=== PATIENT | male | born 1955 | race Caucasian/White ===

== ENCOUNTER 2019-03-20 09:27 | Outpatient (CLI) | payer MEDICARE, BC, SELFPAY ==
[2019-03-20 10:01] LABS: ALT 37 U/L (16-63); AST 17 U/L (15-37); Albumin 3.8 g/dL (3.4-5.0); Alkaline Phosphatase 106 U/L (46-116); Anion Gap 9.7 mmol/L (3-11); BUN 26 mg/dL (7-18); Bilirubin, Total 0.9 mg/dL (0.2-1.0); CO2 24.3 mmol/L (21.0-32.0); CREATININE 1.32 mg/dL (0.70-1.30); Chloride 107 mmol/L (98-107); Estimated GFR 54.43 (mL/min/1.73m2); Glucose 108 mg/dL (70-100); Potassium 3.8 mmol/L (3.5-5.1); Sodium 141 mmol/L (136-145); Total Protein 7.6 g/dL (6.4-8.2)
== END 2019-03-20 09:47 ==
PROVIDERS: PCP Internal Medicine Cardiovascular Disease; Visit Provider Internal Medicine Cardiovascular Disease
DX: I48.0 Paroxysmal atrial fibrillation (principal)
CPT/HCPCS: 36415; 80053

== ENCOUNTER 2019-06-05 09:24 | Outpatient (CLI) | payer MEDICARE, BC, SELFPAY ==
--- NOTE | 2019-06-05 09:31 | DI.RAD_ITS ---
EXAM: XR KNEE LT 2V AP,LAT INDICATION: L knee pain. COMPARISON: No exams were available for comparison TECHNIQUE: 2D digital imaging was performed. FINDINGS: There is minimal spurring at the posterior patella. The joint spaces are otherwise well maintained. The bones appear intact and normally mineralized. There may be a small joint effusion. IMPRESSION: Minimal degenerative changes of the left knee.
== END 2019-06-05 09:44 ==
PROVIDERS: PCP Internal Medicine Cardiovascular Disease; Referring Provider Internal Medicine Cardiovascular Disease; Visit Provider Orthopaedic Surgery
DX: M25.562 Pain in left knee (principal); M17.12 Unilateral primary osteoarthritis, left knee; M25.462 Effusion, left knee; M23.92 Unspecified internal derangement of left knee
CPT/HCPCS: 20610; 99214; 73560; J1040

== ENCOUNTER 2019-11-14 09:52 | Outpatient (CLI) | payer MEDICARE, BC, SELFPAY ==
--- NOTE | 2019-11-14 11:30 | DI.US_ITS ---
EXAM: US SOFT TISSUE HEAD OR NECK CLINICAL HISTORY: H/O LIPOMATOSIS,E88.2,NECK IN C7 AREA,INCREASE IN SIZE,DISCOLORED,TENDER. TECHNIQUE: Ultrasound was performed using standard protocol. COMPARISON: No exams were available for comparison FINDINGS: Sonographic assessment utilizing grayscale and color Doppler imaging was performed and targeted to th e area of clinical concern. There is a 2.7 x 1.4 x 2.1 cm well-circumscribed, lobulated subcutaneous mass corresponding to the pa lpable abnormality. While largely hypoechoic, there is an eccentric area of increased echogenicity. Internal blood flow is noted. IMPRESSION: Nonspecific 2.7 x 1.4 x 2.1 cm subcutaneous mass corresponding to the palpable abnormality. A CT sca n of the neck with contrast should be considered for further evaluation. DATA REPOSITORY:
== END 2019-11-14 10:12 ==
PROVIDERS: PCP Internal Medicine Cardiovascular Disease; Visit Provider Family Medicine
DX: R22.1 Localized swelling, mass and lump, neck (principal); E88.2 Lipomatosis, not elsewhere classified; D17.0 Benign lipomatous neoplasm of skin and subcutaneous tissue of head, face and neck
CPT/HCPCS: 76536

== ENCOUNTER 2019-11-22 02:24 | Outpatient (CLI) | payer MEDICARE, BC, SELFPAY ==
[2019-11-22 14:15] LABS: ALT 34 U/L (16-63); AST 15 U/L (15-37); Albumin 3.7 g/dL (3.4-5.0); Alkaline Phosphatase 115 U/L (46-116); Anion Gap 5.4 mmol/L (3-11); BUN 25 mg/dL (7-18); Bilirubin, Total 0.9 mg/dL (0.2-1.0); CO2 30.6 mmol/L (21.0-32.0); CREATININE 1.47 mg/dL (0.70-1.30); Calcium 9.1 mg/dL (8.5-10.1); Chloride 103 mmol/L (98-107); Estimated GFR 47.93 (mL/min/1.73m2); Glucose 85 mg/dL (74-106); Potassium 3.5 mmol/L (3.5-5.1); Sodium 139 mmol/L (136-145); Total Protein 7.7 g/dL (6.4-8.2)
[2019-11-22] MEDS: Normal Saline - Diluent 50 ML VIAL IV (14:28)
--- NOTE | 2019-11-22 15:00 | DI.CT_ITS ---
EXAM: CT NECK CHEST W CLINICAL HISTORY: LIPOMATOSIS, E88.2,H/O LUMP ON BACK OF NECK WITH DISCOLORATION AND PAIN TECHNIQUE: Images or for performed from above the frontal sinuses through the mid portion of the kid neys after IV contrast. 100 cc of Omnipaque 350 was administered IV. COMPARISON: No exams were available for comparison FINDINGS: Neck CT: A marker was placed over the area of palpable abnormality. Beneath the area marked, there i s a low density collection with surrounding enhancement and edema. The findings are suspicious for a n abscess. It measures 2.8 by 2.3 by 3.5 cm. An incidental sebaceous cyst is seen in the posterior subcutaneous fat at the level of the right scapula. The visualized portions of the brain are grossly normal. The orbits are unremarkable as visualized. The parotid, submandibular and thyroid glands appear normal. The sinuses and mastoid air cells appe ar clear. Degenerative changes are seen in the cervical spine. There is no adenopathy. Chest CT: The heart size is normal. The aorta is normal in diameter shows mild calcification. There are mild coronary artery calcifications. No adenopathy is seen. The lungs show some respiratory mo tion. No infiltrates, effusions or masses are identified. Degenerative changes are seen at the righ t shoulder. Degenerative changes are also noted in the thoracic spine. The liver shows fatty infiltration. Patient is status post cholecystectomy. The spleen, pancreas an d adrenals are unremarkable. There are bilateral renal cysts. IMPRESSION: 3.5 centimeter abscess in the posterior subcutaneous fat of the neck. The chest CT is unremarkable.
== END 2019-11-22 02:44 ==
PROVIDERS: PCP Internal Medicine Cardiovascular Disease; Visit Provider Nurse Practitioner Family
DX: E88.2 Lipomatosis, not elsewhere classified (principal); R22.1 Localized swelling, mass and lump, neck; L02.11 Cutaneous abscess of neck; Z79.899 Other long term (current) drug therapy; K76.0 Fatty (change of) liver, not elsewhere classified; N28.1 Cyst of kidney, acquired
CPT/HCPCS: 70491; 80053; 71260

== ENCOUNTER 2019-11-25 16:35 | Emergency (ER) | payer MEDICARE, BC, SELFPAY ==
--- NOTE | 2019-11-25 16:39 | ED.GENADUL_ITS ---
Discharge Plan Disposition Patient Disposition: HOME Condition: Fair Discharge Details Chief Complaint: RashLesion Clinical Impression: Abscess of neck Primary Care Provider: Zenaida May ED Provider: Pricila Martinez Home Meds and New Rx's Prescriptions: Continued Eliquis 5 mg tablet 5 mg PO BID RF: 0 allopurinol 100 mg tablet 100 mg PO DAILY RF: 0 potassium chloride 10 mEq capsule, extended release 20 meq PO QAM RF: 0 metoprolol succinate 50 mg tablet extended release 24 hr 50 mg PO BID RF: 0 pantoprazole [Protonix] 20 MG tablet,delayed release (DR/EC) 20 mg PO DAILY RF: 0 atorvastatin 20 MG tablet 20 mg PO DAILY RF: 0 potassium chloride 20 MEQ tablet,ER particles/crystals 40 meq PO BID RF: 0 amlodipine 10 MG tablet 5 mg PO DAILY RF: 0 potassium citrate 10 MEQ tablet extended release 10 meq PO BID RF: 0 hydrochlorothiazide 12.5 MG capsule 12.5 mg PO DAILY RF: 0 irbesartan 300 MG tablet 300 mg PO DAILY RF: 0 Discharge Instructions Instructions: Abscess (ED) Additional Instructions: Culture Eliquis for tonight and tomorrow morning. You do not need any other antibiotics this evening, please take your antibiotics as previously prescribed in the morning. You have an appointment with general surgery, Dr. Montes De Oca, tomorrow morning at 9 AM. Do not eat anything after midnight tonight. If you develop new or worsening symptoms and seek care urgently once again. Referrals: Corin Montes De Oca MD [ [facility] STAFF PHYSICIAN] - Zenaida May [Primary Care Provider] - Medical Decision Making <YOU Schwartz - Last Filed: 11/25/19 18:37> Patient is a pleasant 64-year-old gentleman presents today for evaluation of abscess on his neck. He has been following this by his primary care. Patient underwent CT and ultrasound imaging on 11/22/19 and 11/14/19 respectively. These images showed findings suggestive of abscess on the posterior aspect of his neck. Patient reports that for many years he has had what was thought to be a lipoma in this area. However, proximally 1 week ago this began to swell and become tender. He denies any fevers or chills. States this was last evaluated on the . He states that since that time, the pain has increased some and he feels it has been enlarging. He does report that he has had some amount of purulent drainage that began yesterday. Has not had any pain with movement of the neck. Denies any numbness or tingling. Has not noted any weakness. Primary care began patient on Keflex, reports taking his first dose yesterday. On exam, patient has a notable area of swelling with firm defined borders concerning for abscess. The central area is fluctuant. He does have a scabbed over area on the inferior border of this. No active drainage is noted. Unable to express any drainage. Patient has full range of motion of his neck. See no evidence of neurologic compromise associated with this. I reviewed the Notes from the patient's ultrasound and CT scan. Below are the readings from previous imaging: Ultrasound: FINDINGS: Sonographic assessment utilizing grayscale and color Doppler imaging was performed and targeted to the area of clinical concern. There is a 2.7 x 1.4 x 2.1 cm well-circumscribed, lobulated subcutaneous mass corresponding to the palpable abnormality. While largely hypoechoic, there is an eccentric area of increased echogenicity. Internal blood flow is noted. IMPRESSION: Nonspecific 2.7 x 1.4 x 2.1 cm subcutaneous mass corresponding to the palpable abnormality. A CT scan of the neck with contrast should be considered for further evaluation. FINDINGS: Neck CT: A marker was placed over the area of palpable abnormality. Beneath the area marked, there is a low density collection with surrounding enhancement and edema. The findings are suspicious for an abscess. It measures 2.8 by 2.3 by 3.5 cm. An incidental sebaceous cyst is seen in the posterior subcutaneous fat at the level of the right scapula. The visualized portions of the brain are grossly normal. The orbits are unremarkable as visualized. The parotid, submandibular and thyroid glands appear normal. The sinuses and mastoid air cells appear clear. Degenerative changes are seen in the cervical spine. There is no adenopathy. Chest CT: The heart size is normal. The aorta is normal in diameter shows mild calcification. There are mild coronary artery calcifications. No adenopathy is seen. The lungs show some respiratory motion. No infiltrates, effusions or masses are identified. Degenerative changes are seen at the right shoulder. Degenerative changes are also noted in the thoracic spine. The liver shows fatty infiltration. Patient is status post cholecystectomy. The spleen, pancreas and adrenals are unremarkable. There are bilateral renal cysts. IMPRESSION: 3.5 centimeter abscess in the posterior subcutaneous fat of the neck. The chest CT is unremarkable. I am concerned the patient is on Eliquis and has what is concerning for internal blood flow noted on the ultrasound. Will consult with general surgery. Consulted with Dr. Montes De Oca. She reviewed the imaging. We did discuss treatment options. She advised that we could drain here versus having the patient remain n.p.o. and following up with her in the office tomorrow. She did advise that if we chose to do the latter, we give the patient a gram of Rocephin here, have him hold his Eliquis and remain n.p.o. after midnight. I discussed options with the patient. I am concerned that with the area of bleeding patient may be high risk and feel that the outpatient option is more appropriate. The patient agrees with this assessment. He was given 1 g of Rocephin. We did discuss adding Bactrim to the current regimen but based on lab results, I am hesitant to do this based on the patient's kidney function. Rather, I will have him discuss further antibiotic therapy with surgeon tomorrow. He has an appointment at 9 AM. He was given return precautions. All of his questions and concerns were addressed and he is in agreement with this plan. <Hodan Kinney MD - Last Filed: 11/25/19 19:42> I have seen and examined the patient and agree with the exam and history as documented by the PA except as otherwise noted. Review of systems as per the PA. Julio Mays is a 64-year-old man with history of hypertension, atrial fibrillation on apixaban, hyperlipidemia presenting to emergency department with neck abscess imaged on CT 3 days ago, sent by his PCP for further evaluation. Patient is taking Keflex at home prescribed by his PCP. Exam is consistent with abscess, small amount of drainage present. No surrounding erythema. Full painless range of motion of the neck. PA discussed patient presentation and results with Dr. Montes De Oca of surgery, with plan for her to see patient as outpatient at 9 AM tomorrow as an outpatient, at that time patient may be converted to day surgery versus and incision and drainage in office. Plan for IV ceftriaxone. Exam/history is not consistent with extension into bone/spinal canal, meningitis, sepsis, impending airway compromise. I had a lengthy discussion with Patient regarding return to emergency department precautions, home care, and importance of outpatient follow-up. Pt verbalizes understanding of the plan and is amenable. Patient discharged to home with clear plan for outpatient follow-up. All questions were answered. Disposition decision was made weighing the risks and benefits of hospitalization versus outpatient treatment, the risk for further decompensation, and the patient's wishes. HPI <YOU Schwartz - Last Filed: 11/25/19 18:37> General Date/Time Provider Initiated Documentation: 11/25/19 16:39 . History of Present Illness 64 year old M presents to the emergency department with the chief complaint of abscess on back of neck, described as mild, Quality is described as aching, and is localized to the neck. Patient reports no radiation. Patient started experiencing this day(s) and it has been constant. No relieving factors improve symptom(s), No exacerbating factors reported . Patient notes denies cough, diaphoresis, fever/chills, na usea/vomiting, shortness of breath and weakness. Patient did receive the following treatments prior to arrival, other (started on keflex) Related Data Home Medications Medication Instructions Recorded Confirmed amlodipine 5 mg PO DAILY 06/19/16 06/05/19 atorvastatin 20 mg PO DAILY 06/19/16 06/05/19 hydrochlorothiazide 12.5 mg PO DAILY 06/19/16 06/05/19 irbesartan 300 mg PO DAILY 06/19/16 06/05/19 potassium chloride 40 meq PO BID 06/19/16 06/05/19 potassium citrate 10 meq PO BID 06/19/16 06/05/19 pantoprazole [Protonix] 20 mg PO DAILY 02/25/17 06/05/19 allopurinol 100 mg tablet 100 mg PO DAILY 06/05/19 06/05/19 apixaban 5 mg tablet 5 mg PO BID 06/05/19 06/05/19 metoprolol succinate 50 mg 50 mg PO BID 06/05/19 06/05/19 tablet,extended release 24 hr potassium chloride 10 mEq 20 meq PO QAM cap 06/05/19 06/05/19 capsule,extended release Allergies Allergy/AdvReac Type Severity Reaction Status Date / Time adhesive Allergy Unverified 11/25/19 16:44 latex Allergy Unverified 11/25/19 16:44 Review of Systems <YOU Schwartz - Last Filed: 11/25/19 18:37> Constitutional Constitutional: Reports as per HPI, Denies chills and Denies fever(s) Musculoskeletal Musculoskeletal: Reports as per HPI Integumentary/Breasts Skin/Breast: Reports as per HPI Neurologic Neurologic: Reports as per HPI, Denies localized weakness, Denies sensory deficit and Denies paresthesias PFSH <YOU Schwartz - Last Filed: 11/25/19 18:37> Social History Current gender identity: male Do you feel safe at home: Yes Do you feel safe in your relationship?: Yes Exam <YOU Schwartz Last Filed: 11/25/19 18:37> Const General: cooperative, healthy appearing, comfortable, no acute distress and well developed Nutritional Appearance: well nourished and overweight Orientation: alert and awake HENMT Head: normal to inspection Ears: hearing grossly normal bilaterally Neck Neck: full ROM, no lymphadenopathy and no meningeal signs Resp Effort & Inspection: normal respiratory effort, able to speak in complete sentences and no respiratory distress Cardio Rate: regular rate Rhythm: regular rhythm Skin General skin exam: erythema (abscess as above) Neuro General: patient alert and patient awake Cognition: normal cognition Speech: speech normal Gait: normal gait Sensory Exam: no sensory deficits noted Extrem General: normal to inspection and capillary refill normal Right upper extremity: normal to inspection Left upper extremity: normal to inspection Psych Appearance: grossly normal and well kempt Mental Status: mental status grossly normal Speech and Movement: speech and movement normal
[2019-11-25 16:40] VITALS: BP 163/77; PULSE 57; TEMP 36.5; O2SAT 98
[2019-11-25] MEDS: Normal Saline Flush 10 ML SYR IVP (17:36)
[2019-11-25] MEDS: cefTRIAXone 1 GM/50 ML BAG IVPB (17:39)
[2019-11-25 18:11] VITALS: BP 141/69; PULSE 53; RESP 20; TEMP 36.7; O2SAT 98
[2019-11-25 18:24] VITALS: BP 141/69; PULSE 53; RESP 20; TEMP 36.7; O2SAT 98
== END 2019-11-25 18:20 | disposition home or self-care (01) ==
PROVIDERS: Emergency Provider Physician Assistant; PCP Internal Medicine Cardiovascular Disease
DX: L02.11 Cutaneous abscess of neck (principal); Z79.01 Long term (current) use of anticoagulants; I48.91 Unspecified atrial fibrillation
CPT/HCPCS: 96365; 99284; J0696

== ENCOUNTER → 2019-11-26 09:01 | Outpatient (BNVA) | payer MEDICARE, BC, SELFPAY | PROVIDERS: PCP Family Medicine; Visit Provider Surgery | DX: L02.11 Cutaneous abscess of neck (principal); Z79.01 Long term (current) use of anticoagulants | CPT/HCPCS: 10060; 99201; 99212 ==

== ENCOUNTER 2019-11-26 10:12 | Outpatient (REF) | payer MEDICARE, BC, SELFPAY | END 2019-11-26 10:32 | LOC: LBN 10:12 | PROVIDERS: PCP Family Medicine; Visit Provider Family Medicine | DX: L02.11 Cutaneous abscess of neck (principal) | CPT/HCPCS: 87070; 87205 ==

== ENCOUNTER → 2019-11-27 11:27 | Outpatient (BNVA) | payer MEDICARE, BC, SELFPAY | PROVIDERS: PCP Family Medicine; Referring Provider Family Medicine; Visit Provider Surgery | DX: L02.11 Cutaneous abscess of neck (principal); L72.3 Sebaceous cyst; L08.89 Other specified local infections of the skin and subcutaneous tissue | CPT/HCPCS: 11423; 99212 ==

== ENCOUNTER → 2019-11-28 09:48 | Outpatient (BNVA) | payer MEDICARE, BC, SELFPAY | PROVIDERS: PCP Family Medicine; Referring Provider Family Medicine; Visit Provider Surgery | DX: Z48.01 Encounter for change or removal of surgical wound dressing (principal); L02.11 Cutaneous abscess of neck ==

== ENCOUNTER → 2019-11-29 11:02 | Outpatient (BNVA) | payer MEDICARE, BC, SELFPAY | PROVIDERS: PCP Family Medicine; Referring Provider Family Medicine; Visit Provider Surgery | DX: L02.11 Cutaneous abscess of neck (principal) ==

== ENCOUNTER 2020-01-13 02:31 | Outpatient (CLI) | payer MEDICARE, BC, SELFPAY ==
[2020-01-13 13:25] LABS: Anion Gap 9.6 mmol/L (3-11); BUN 24 mg/dL (7-18); CO2 27.4 mmol/L (21.0-32.0); CREATININE 1.29 mg/dL (0.70-1.30); Chloride 105 mmol/L (98-107); Estimated GFR 55.72 (mL/min/1.73m2); Glucose 106 mg/dL (74-106); Potassium 3.6 mmol/L (3.5-5.1); Sodium 142 mmol/L (136-145)
== END 2020-01-13 02:51 ==
PROVIDERS: PCP Family Medicine; Visit Provider Physician Assistant
DX: Z79.899 Other long term (current) drug therapy (principal)
CPT/HCPCS: 36415; 80048

== ENCOUNTER 2020-03-11 04:03 | Outpatient (CLI) | payer MEDICARE, BC, SELFPAY ==
[2020-03-11 08:49] LABS: HCT 45.4 % (40.0-50.0); HGB 15.6 g/dL (13.5-17.5); MCH 30.1 pg (27.0-33.0); MCHC 34.4 % (32.0-36.0); MCV 87.5 fL (80-95); MPV 9.6 fL (8.0-11.0); Platelet Count 231 10^3/uL (130-400); RBC 5.19 10^6/uL (4.36-5.78); RDW 13.1 % (11.8-14.1); WBC 6.25 10^3/uL (4.4-10.8)
[2020-03-11 09:48] LABS: ALT 40 U/L (16-63); AST 18 U/L (15-37); Albumin 3.7 g/dL (3.4-5.0); Alkaline Phosphatase 114 U/L (46-116); Anion Gap 11.8 mmol/L (3-11); BUN 22 mg/dL (7-18); Bilirubin, Total 0.7 mg/dL (0.2-1.0); CO2 25.2 mmol/L (21.0-32.0); CREATININE 1.46 mg/dL (0.70-1.30); Calcium 8.9 mg/dL (8.5-10.1); Chloride 104 mmol/L (98-107); Estimated GFR 48.31 (mL/min/1.73m2); Glucose 122 mg/dL (74-106); Lipase 101 U/L (73-393); Potassium 3.9 mmol/L (3.5-5.1); Sodium 141 mmol/L (136-145)
[2020-03-13 10:12] LABS: CA 19-9 19 U/mL (<35)
== END 2020-03-11 04:23 ==
PROVIDERS: PCP Family Medicine; Visit Provider Internal Medicine Gastroenterology
DX: R97.8 Other abnormal tumor markers (principal)
CPT/HCPCS: 36415; 80053; 83690; 85027; 86301

== ENCOUNTER 2020-09-18 02:41 | Outpatient (CLI) | payer MEDICARE, BC, SELFPAY ==
[2020-09-18 11:16] LABS: HCT 45.8 % (40.0-50.0); HGB 15.7 g/dL (13.5-17.5); MCHC 34.3 % (32.0-36.0); MCV 87.6 fL (80-95); MPV 9.9 fL (8.0-11.0); Platelet Count 210 10^3/uL (130-400); RBC 5.23 10^6/uL (4.36-5.78); RDW-SD 41.9 fL
[2020-09-18 11:29] LABS: Hemoglobin A1C 5.7 % (<5.7)
[2020-09-18 12:07] LABS: ALT 48 U/L (16-63); AST 18 U/L (15-37); Albumin 3.7 g/dL (3.4-5.0); Alkaline Phosphatase 115 U/L (46-116); BUN 30 mg/dL (7-18); Bilirubin, Total 0.5 mg/dL (0.2-1.0); CREATININE 1.4 mg/dL (0.70-1.30); Chloride 106 mmol/L (98-107); Estimated GFR 50.55 (mL/min/1.73m2); Glucose 106 mg/dL (74-106); Lipase 154 U/L (73-393); Potassium 3.7 mmol/L (3.5-5.1); Sodium 144 mmol/L (136-145); TSH 2.46 uIU/mL (0.36-3.74); Total Protein 7.2 g/dL (6.4-8.2)
[2020-09-18 12:23] LABS: Calculated LDL 101 mg/dL (<100); Cholesterol 161 mg/dL (<200); HDL Cholesterol 40 mg/dL (40-60); T4 10.2 ug/mL (4.7-13.3); Triglyceride 100 mg/dL (<150)
[2020-09-21 10:21] LABS: CA 19-9 8 U/mL (<35)
== END 2020-09-18 02:42 | disposition home or self-care (01) ==
LOC: LBO 02:41
PROVIDERS: PCP Family Medicine; Visit Provider Internal Medicine Gastroenterology
DX: E78.5 Hyperlipidemia, unspecified (principal); R73.01 Impaired fasting glucose; R97.8 Other abnormal tumor markers; I10 Essential (primary) hypertension
CPT/HCPCS: 36415; 80053; 80061; 83690; 85027; 83036; 84436; 84443; 86301

== ENCOUNTER 2020-09-23 01:26 | Outpatient (CLI) | payer MEDICARE, BC, SELFPAY ==
--- NOTE | 2020-09-23 13:53 | DI.RAD_ITS ---
EXAM: XR KNEE RT 3V AP,LAT,KATH CLINICAL HISTORY: RT KNEE PAIN,M79.651. TECHNIQUE: 2D digital imaging was performed. COMPARISON: CR XR KNEE LT 2V AP,LAT from 06/05/2019 FINDINGS: There is no evidence of acute fracture. There is mild amount of increased joint fluid noted. Mild d egenerative changes. Benign-appearing non expansile lucent bone lesion is noted in proximal medial m etaphysis of the tibia exhibiting sclerotic border measuring 10 x 10 millimeters. IMPRESSION: DATA REPOSITORY: RADIATION DOSE DELIVERED:
--- NOTE | 2020-09-23 14:04 | DI.RAD_ITS ---
EXAM: XR HIP RT COMPLETE AP PELVIS CLINICAL HISTORY: PAIN,M79.651. TECHNIQUE: 2D digital imaging was performed. COMPARISON: No exams were available for comparison FINDINGS: There is no evidence of pelvic or hip fracture. There are mild degenerative changes in the hips. No osseous lesions. Sacroiliac joints appear. IMPRESSION: DATA REPOSITORY: RADIATION DOSE DELIVERED:
--- NOTE | 2020-09-23 14:12 | DI.RAD_ITS ---
EXAM: XR FEMUR RT CLINICAL HISTORY: PAIN,M79.651. TECHNIQUE: 2D digital imaging was performed. COMPARISON: CR XR KNEE RT 3V AP,LAT,KATH from 09/23/2020 FINDINGS: No evidence right hip and femur fracture. Mild degenerative changes hip. Incidentally noted is a be nign-appearing peripherally sclerotic lucent bone lesion in the proximal tibia of medial metaphysis l evel. No ominous osseous lesions evident femur. IMPRESSION: DATA REPOSITORY: RADIATION DOSE DELIVERED:
== END 2020-09-23 01:46 ==
PROVIDERS: PCP Family Medicine; Visit Provider Family Medicine
DX: M79.651 Pain in right thigh (principal); M16.11 Unilateral primary osteoarthritis, right hip; M25.551 Pain in right hip; M25.561 Pain in right knee; M25.461 Effusion, right knee; M17.11 Unilateral primary osteoarthritis, right knee; M84.861 Other disorders of continuity of bone, right tibia
CPT/HCPCS: 73552; 73562; 73502

== ENCOUNTER 2020-11-17 03:24 | Outpatient (CLI) | payer MEDICARE, BC, SELFPAY ==
[2020-11-17 10:35] LABS: HCT 44.9 % (40.0-50.0); HGB 15.9 g/dL (13.5-17.5); MCH 30.8 pg (27.0-33.0); MCHC 35.4 % (32.0-36.0); MCV 86.8 fL (80-95); MPV 9.6 fL (8.0-11.0); Platelet Count 222 10^3/uL (130-400); RBC 5.17 10^6/uL (4.36-5.78); RDW 13.3 % (11.8-14.1); RDW-SD 42.5 fL; WBC 6.74 10^3/uL (4.4-10.8)
[2020-11-17 11:04] LABS: Anion Gap 10.8 mmol/L (3-11); BUN 27 mg/dL (7-18); CO2 27.2 mmol/L (21.0-32.0); CREATININE 1.4 mg/dL (0.70-1.30); Calcium 9.2 mg/dL (8.5-10.1); Chloride 107 mmol/L (98-107); Estimated GFR 50.55 (mL/min/1.73m2); Glucose 135 mg/dL (74-106); Potassium 3.7 mmol/L (3.5-5.1); Sodium 145 mmol/L (136-145)
[2020-11-17 11:06] LABS: COMMENT (LAB VIEW ONLY) 102.42 mg/dL; Microalb ug/mg Crea 5.3 ug/mg Cr
[2020-11-17 11:06] LABS: Albumin 3.7 g/dL (3.4-5.0); Chloride 106 mmol/L (98-107); PHOSPHORUS 3.1 mg/dL (2.6-4.7); Potassium 3.6 mmol/L (3.5-5.1); Sodium 144 mmol/L (136-145)
[2020-11-18 09:36] LABS: Parathyroid Hormone,Intact 73 pg/mL (19-88)
== END 2020-11-17 03:25 | disposition home or self-care (01) ==
LOC: LBO 03:25
PROVIDERS: PCP Family Medicine; Visit Provider Family Medicine
DX: I10 Essential (primary) hypertension (principal); N18.31 Chronic kidney disease, stage 3a; E79.0 Hyperuricemia without signs of inflammatory arthritis and tophaceous disease
CPT/HCPCS: 36415; 80048; 80051; 85027; 82040; 82043; 82570; 83970; 84100

== ENCOUNTER 2020-11-25 01:52 | Outpatient (CLI) | payer MEDICARE, BC, SELFPAY ==
--- NOTE | 2020-11-25 | DI.MRI_ITS ---
Exam(s) MR LUMBAR SPINE WO EXAM: MR LUMBAR SPINE WO CLINICAL HISTORY: LOW BACK PAIN, M54.5. TECHNIQUE: Multiplanar multisequence MRI of the Lumbar spine was performed. COMPARISON: No exams were available for comparison FINDINGS: Bones: The last intervertebral disc space is designated the L5/S1 level for the numbering purpose of this examination. The vertebral body heights are well maintained. Alignment is satisfactory. There are degenerative endplate signal changes at multiple levels of the lumbar spine. Loss of signal of t he discs are seen throughout the lumbar spine. There is a hemangioma or fatty rest in the L2 vertebr al body. Cord: The conus tip ends at the L1 level. It is of normal size and signal intensity. T12-L1: No disc herniations or bulges are present. No central spinal canal or neural foraminal stenos is. L1-2: No disc herniations or bulges are present. No central spinal canal or neural foraminal stenosis . L2-3: No disc herniations or bulges are present. No central spinal canal or neural foraminal stenosis . L3-4: No disc herniations or bulges are present. No significant central spinal canal stenosis. There are hypertrophic changes of the facets.No significant neural foraminal stenosis. L4-5: There is a mild diffuse disc bulge. No significant central spinal canal stenosis is seen hypert rophic changes of the facets are present. There is mild bilateral neural foraminal narrowing. L5-S1: There is a mild diffuse disc bulge. No significant central spinal canal stenosis is present. T here are degenerative changes of the facets. No significant neural foraminal stenosis is present. Soft tissues: The visualized SI joints and sacrum are well maintained. The paraspinal soft tissues ar e unremarkable. Bilateral simple renal cysts are present. These can be seen on the CT scan of the abd omen and pelvis from 11/22/2019. IMPRESSION: Multilevel degenerative changes in the lumbar spine resulting in multilevel neural foraminal narrowin g as described above. Complete DATA REPOSITORY:
== END 2020-11-25 02:12 ==
PROVIDERS: PCP Family Medicine; Visit Provider Family Medicine
DX: M54.5 Low back pain (principal); M51.27 Other intervertebral disc displacement, lumbosacral region; M47.817 Spondylosis without myelopathy or radiculopathy, lumbosacral region
CPT/HCPCS: 72148

== ENCOUNTER 2021-01-07 02:01 | Outpatient (CLI) | payer MEDICARE, BC, SELFPAY ==
--- NOTE | 2021-01-07 10:20 | DI.RAD_ITS ---
Exam(s) XR HIP RT COMPLETE AP PELVIS EXAM: XR HIP RT COMPLETE AP PELVIS CLINICAL HISTORY: RT HIP PAIN, M25.551. TECHNIQUE: 2D digital imaging was performed. COMPARISON: CR XR HIP RT COMPLETE AP PELVIS from 09/23/2020 FINDINGS: There are no pelvic nor hip fractures.. Only mild degenerative changes in the hips again noted. Sac roiliac joints again appear unremarkable. No osseous lesions. Degenerative subarticular cyst is see n in the superolateral aspect of the acetabulum on both sides. IMPRESSION: No fractures. Mild degenerative changes both hips. DATA REPOSITORY: RADIATION DOSE DELIVERED:
== END 2021-01-07 02:21 ==
PROVIDERS: PCP Family Medicine; Visit Provider Family Medicine
DX: M16.0 Bilateral primary osteoarthritis of hip (principal)
CPT/HCPCS: 73502

== ENCOUNTER 2021-01-27 01:44 | Outpatient (CLI) | payer MEDICARE, BC, SELFPAY ==
--- NOTE | 2021-01-27 | DI.MRI_ITS ---
Exam(s) MR LOWER JOINT RT WO EXAM: MR LOWER JOINT RT WO CLINICAL HISTORY: HIP PAIN TECHNIQUE: Multiplanar multisequence MRI of the knee was performed. COMPARISON: No exams were available for comparison FINDINGS: MARROW:There is no evidence of fracture, bone contusion, nor avascular necrosis. No osseous lesions evident. EFFUSION: No evidence of hip joint effusion. HIP JOINT: Mild degenerative cartilage changes. No osteophytes there is also a 4 millimeter degenera tive subarticular cyst in the anterior acetabulum. No degenerative cysts in the femoral head. No th ickening of the ligamentum teres. No abnormal signal at the fovea centralis. LABRUM: There is a tear in the anterior-superior labrum. No evidence of paralabral cyst. SOFT TISSUES: No evidence of adductor tendinitis nor bursitis. No evidence of iliopsoas bursitis. No abnormal signal at the ischial tuberosity to suggest hamstrings tear. OTHER: Prostate gland is enlarged. No obturator adenopathy evident. Urinary bladder is not distende d. IMPRESSION: 1. There are mild degenerative changes in right hip joint. 2. There is a tear in the anterosuperior labrum. No evidence of paralabral cyst. 3. No evidence of stress fracture, avascular necrosis, nor joint effusion. 4. No significant osseous lesions seen. DATA REPOSITORY:
== END 2021-01-27 02:04 ==
PROVIDERS: PCP Family Medicine; Visit Provider Nurse Practitioner
DX: M16.11 Unilateral primary osteoarthritis, right hip (principal); S73.101A Unspecified sprain of right hip, initial encounter; M54.5 Low back pain; X58.XXXA Exposure to other specified factors, initial encounter
CPT/HCPCS: 73721

== ENCOUNTER 2021-04-06 03:43 | Outpatient (CLI) | payer MEDICARE, BC, SELFPAY ==
[2021-04-06 16:43] LABS: Anion Gap 10.5 mmol/L (3-11); BUN 29 mg/dL (7-18); CO2 25.5 mmol/L (21.0-32.0); Chloride 106 mmol/L (98-107); Estimated GFR 33.49 (mL/min/1.73m2); Glucose 92 mg/dL (74-106); Potassium 4.5 mmol/L (3.5-5.1); Sodium 142 mmol/L (136-145)
== END 2021-04-06 03:44 | disposition home or self-care (01) ==
LOC: LBO 03:43
PROVIDERS: PCP Family Medicine; Visit Provider Internal Medicine Cardiovascular Disease
DX: Z79.899 Other long term (current) drug therapy (principal)
CPT/HCPCS: 36415; 80048

== ENCOUNTER 2021-05-03 00:35 | Outpatient (CLI) | payer MEDICARE, BC, SELFPAY ==
--- NOTE | 2021-05-03 14:07 | DI.RAD_ITS ---
Exam(s) XR FEMUR RT EXAM: XR FEMUR RT CLINICAL HISTORY: PAIN RT THIGH,M79.651. TECHNIQUE: 2D digital imaging was performed of the right femur. Four images were obtained. AP and l ateral views were obtained. COMPARISON: CR XR FEMUR RT from 09/23/2020 FINDINGS: BONES: No acute fracture is present. No bony destructive lesion is seen. Stable mild degenerative marissa nges are seen in the right hip. SOFT TISSUE: Normal. IMPRESSION: Unremarkable radiographs of the right femur. If there is concern for internal derangement, an MRI may be considered for further evaluation. DATA REPOSITORY: RADIATION DOSE DELIVERED:
--- NOTE | 2021-05-03 14:07 | DI.RAD_ITS ---
Exam(s) XR KNEE RT 3V AP,LAT,KATH EXAM: XR KNEE RT 3V AP,LAT,KTAH CLINICAL HISTORY: PAIN, M79.651. TECHNIQUE: 2D digital imaging was performed of the right knee. Four views obtained. AP, lateral and PA tunnel views were obtained. COMPARISON: CR XR KNEE RT 3V AP,LAT,KATH from 09/23/2020 FINDINGS: BONES: No acute fracture is present. No bony destructive lesion is seen. The well-circumscribed lucen cy in the proximal metaphysis of the medial right tibia appears stable. This is likely benign. JOINTS: The knee is normally aligned. No joint effusion is seen. Mild degenerative changes are seen i n the knee particularly the patellofemoral joint. SOFT TISSUE: Normal. IMPRESSION: Stable degenerative changes of the right knee. DATA REPOSITORY: RADIATION DOSE DELIVERED:
== END 2021-05-03 00:55 ==
PROVIDERS: PCP Family Medicine; Visit Provider Family Medicine
DX: M25.561 Pain in right knee (principal); M79.651 Pain in right thigh; M17.11 Unilateral primary osteoarthritis, right knee
CPT/HCPCS: 73552; 73562

== ENCOUNTER 2021-05-12 11:22 | Outpatient (CLI) | payer MEDICARE, BC, SELFPAY ==
--- NOTE | 2021-05-12 | DI.US_ITS ---
Exam(s) US SOFT TISSUE EXTREMITY EXAM: US SOFT TISSUE EXTREMITY CLINICAL HISTORY: PAIN IN RT THIGH, M79.651, SOFT TISSUE MASS TECHNIQUE: Ultrasound performed using standard protocol. COMPARISON: US US SOFT TISSUE HEAD OR NECK from 11/14/2019 FINDINGS: Ultrasound examination of the posteromedial right thigh was performed in the region of the patient's reported symptoms. No gross mass identified by ultrasound criteria. There is a high clinical suspicion of a mass, additional evaluation with MR or CT may be considered. IMPRESSION: DATA REPOSITORY:
== END 2021-05-12 11:42 ==
PROVIDERS: PCP Family Medicine; Visit Provider Family Medicine
DX: M79.651 Pain in right thigh (principal); R93.6 Abnormal findings on diagnostic imaging of limbs
CPT/HCPCS: 76881

== ENCOUNTER 2021-06-03 02:47 | Outpatient (CLI) | payer MEDICARE, BC, SELFPAY ==
[2021-06-03 14:53] LABS: Abs Immature Grans 0.03 10^3/uL (0.0-0.06); Absolute Basophil Count 0.03 10^3/uL (0.0-0.2); Absolute Eosinophil Count 0.06 10^3/uL (0.0-0.7); Absolute Lymphocyte Count 1.48 10^3/uL (1.2-3.4); Absolute Monocyte Count 0.62 10^3/uL (0.1-0.8); Absolute Neutrophil Count 4.69 10^3/uL (1.2-6.7); Basophils % 0.4; Eosinophils % 0.9; HCT 45.6 % (40.0-50.0); HGB 15.3 g/dL (13.5-17.5); Immature Grans % 0.4; Lymphocytes % 21.4; MCH 29.7 pg (27.0-33.0); MCHC 33.6 % (32.0-36.0); MCV 88.4 fL (80-95); MPV 9.2 fL (8.0-11.0); Neutrophils % 67.9; Nucleated RBC 0 %; Platelet Count 227 10^3/uL (130-400); RBC 5.16 10^6/uL (4.36-5.78); RDW 13.2 % (11.8-14.1); WBC 6.91 10^3/uL (4.4-10.8)
[2021-06-03 17:19] LABS: Albumin 3.9 g/dL (3.4-5.0); Anion Gap 10.3 mmol/L (3-11); BUN 29 mg/dL (7-18); CO2 26.7 mmol/L (21.0-32.0); CREATININE 1.5 mg/dL (0.70-1.30); Calcium 9.1 mg/dL (8.5-10.1); Chloride 107 mmol/L (98-107); Estimated GFR 46.54 (mL/min/1.73m2); PHOSPHORUS 3.5 mg/dL (2.6-4.7); Potassium 3.8 mmol/L (3.5-5.1); Sodium 144 mmol/L (136-145); Uric Acid 5.2 mg/dL (3.5-7.2)
[2021-06-03 22:16] LABS: PSA, Diagnostic 1.7 ng/mL (0.0-4.5)
== END 2021-06-03 02:48 | disposition home or self-care (01) ==
LOC: LBO 02:47
PROVIDERS: PCP Family Medicine; Visit Provider Nurse Practitioner Adult Health
DX: N18.31 Chronic kidney disease, stage 3a (principal); N40.0 Benign prostatic hyperplasia without lower urinary tract symptoms; I10 Essential (primary) hypertension; E79.0 Hyperuricemia without signs of inflammatory arthritis and tophaceous disease
CPT/HCPCS: 36415; 80051; 84520; 82040; 82310; 82565; 84100; 84153; 84550; 85025

== ENCOUNTER 2021-06-23 00:16 | Outpatient (CLI) | payer MEDICARE, BC, SELFPAY ==
[2021-06-23] MEDS: Gadoterate meglumine 20 ML VIAL IVP (09:56)
--- NOTE | 2021-06-23 10:00 | DI.MRI_ITS ---
Exam(s) MR ABDOMEN WO/W EXAM: MR ABDOMEN WO/W MRCP CLINICAL HISTORY: F/U ABNL IMAGING OF ABD REGION,R93.5,NEUROENDOCRINE TUMOR,D3A.8 TECHNIQUE: Multiplanar multisequence MRI was performed with both pre and post contrast infused seque nces. Contrast injected sequences were performed following IV injection of 20 cc of Dotarem. COMPARISON: CT CT NECK CHEST W from 11/22/2019 FINDINGS: VISUALIZED LUNG BASES: No pleural effusions evident. There is no ascites evident. LIVER: There are a few tiny cysts in the liver lumen measuring less than 5 millimeters. GB/ BILIARY: Gallbladder appears to be surgically absent. The CBD is not dilated.No significant dila tation of intrahepatic ducts. PANCREAS: There are small cystic posterior aspect pancreatic head measuring 2 and 3 millimeters, eith er cyst or intra pancreatic cystic neoplasms pancreatic duct is not dilated. SPLEEN: Spleen is not enlarged and there are no intrasplenic lesions.Splenic and portal veins are pat ent ADRENALS: There are no significant adrenal masses. KIDNEYS: Multiple cysts in both kidneys noted. The largest cyst the left kidney measures 8.3 by 6.2 by 6.4 cm. Largest cyst in the right kidney measures 5.6 x 0.9 cm by 5.4 cm there are no solid lesio ns evident in the kidneys. No hydronephrosis. ABDOMINAL AORTA: Not enlarged and there is no significant para-aortic adenopathy. ANTERIOR ABDOMINAL WALL/GI: There is no evidence of significant anterior abdominal wall hernia in the field of view of this study.No evidence of bowel obstruction. No obvious mesenteric masses. OSSEOUS: There are no lytic osseous lesions in the field of view of this study. IMPRESSION: 1. Multiple large but benign appearing cysts in both kidneys. No solid renal masses. No hydronephro sis. 2. The gallbladder appears to be surgically absent. The biliary tree is not dilated. 3. Small sub cm cystic structures in the pancreas, either cyst or intra pancreatic cystic neoplasms. These located in the region of the head and measure at and below 3 millimeters. DATA REPOSITORY:
== END 2021-06-23 00:36 ==
PROVIDERS: PCP Family Medicine; Visit Provider Internal Medicine Gastroenterology
DX: R93.5 Abnormal findings on diagnostic imaging of other abdominal regions, including retroperitoneum (principal); K76.89 Other specified diseases of liver; N28.1 Cyst of kidney, acquired; Z90.49 Acquired absence of other specified parts of digestive tract; K86.2 Cyst of pancreas
CPT/HCPCS: 74183

== ENCOUNTER 2021-06-30 04:16 | Outpatient (CLI) | payer MEDICARE, BC, SELFPAY ==
[2021-06-30 15:09] LABS: HCT 43.7 % (40.0-50.0); HGB 15.2 g/dL (13.5-17.5); MCH 30.1 pg (27.0-33.0); MCHC 34.8 % (32.0-36.0); MCV 86.5 fL (80-95); MPV 9.6 fL (8.0-11.0); Platelet Count 204 10^3/uL (130-400); RBC 5.05 10^6/uL (4.36-5.78); RDW 13.2 % (11.8-14.1); RDW-SD 41.4 fL; WBC 8.22 10^3/uL (4.4-10.8)
[2021-06-30 16:11] LABS: ALT 44 U/L (16-63); AST 17 U/L (15-37); Albumin 3.8 g/dL (3.4-5.0); Alkaline Phosphatase 108 U/L (46-116); Anion Gap 11.7 mmol/L (3-11); BUN 32 mg/dL (7-18); Bilirubin, Total 0.6 mg/dL (0.2-1.0); CO2 26.3 mmol/L (21.0-32.0); CREATININE 1.6 mg/dL (0.70-1.30); Calcium 8.9 mg/dL (8.5-10.1); Chloride 108 mmol/L (98-107); Glucose 99 mg/dL (74-106); Sodium 146 mmol/L (136-145); Total Protein 7.1 g/dL (6.4-8.2)
[2021-06-30 16:27] LABS: Lipase 123 U/L (73-393)
[2021-07-02 11:15] LABS: CA 19-9 13 U/mL (<35)
== END 2021-06-30 04:17 | disposition home or self-care (01) ==
LOC: LBO 04:16
PROVIDERS: PCP Family Medicine; Visit Provider Internal Medicine Gastroenterology
DX: R97.8 Other abnormal tumor markers (principal)
CPT/HCPCS: 36415; 80053; 83690; 85027; 86301

== ENCOUNTER 2021-08-10 02:19 | Outpatient (CLI) | payer MEDICARE, BC, SELFPAY | END 2021-08-10 02:20 | disposition home or self-care (01) | LOC: LBO 02:19 | PROVIDERS: PCP Family Medicine; Visit Provider Internal Medicine Cardiovascular Disease | DX: I10 Essential (primary) hypertension (principal) | CPT/HCPCS: 36415; 83735 ==

== ENCOUNTER 2021-12-14 00:52 | Outpatient (CLI) | payer MEDICARE, BC, SELFPAY ==
[2021-12-14 14:13] LABS: HCT 44.8 % (40.0-50.0); HGB 15.2 g/dL (13.5-17.5); MCH 29.7 pg (27.0-33.0); MCHC 33.9 % (32.0-36.0); MCV 88 fL (80-95); MPV 9.8 fL (8.0-11.0); Platelet Count 214 10^3/uL (130-400); RBC 5.12 10^6/uL (4.36-5.78); RDW 13.6 % (11.8-14.1); RDW-SD 43.8 fL; WBC 7.02 10^3/uL (4.4-10.8)
[2021-12-14 16:30] LABS: Albumin 3.6 g/dL (3.4-5.0); Anion Gap 9.1 mmol/L (3-11); BUN 24 mg/dL (7-18); CO2 27.9 mmol/L (21.0-32.0); CREATININE 1.2 mg/dL (0.70-1.30); Calculated LDL 74 mg/dL (<100); Chloride 106 mmol/L (98-107); Cholesterol 145 mg/dL (<200); Glucose 110 mg/dL (74-106); HDL Cholesterol 42 mg/dL (40-60); Potassium 3.5 mmol/L (3.5-5.1); Sodium 143 mmol/L (136-145); Triglyceride 149 mg/dL (<150)
[2021-12-14 17:00] LABS: PHOSPHORUS 2.9 mg/dL (2.6-4.7)
[2021-12-14 20:25] LABS: PROTEIN 16.3 mg/dL (0.0-11.9)
[2021-12-14 21:51] LABS: COMMENT (LAB VIEW ONLY) 135.15 mg/dL
[2021-12-15 10:26] LABS: Parathyroid Hormone,Intact 98 pg/mL (19-88)
== END 2021-12-14 00:53 | disposition home or self-care (01) ==
LOC: LBO 00:52
PROVIDERS: PCP Family Medicine; Visit Provider Student in an Organized Health Care Education/Training Program
DX: E78.5 Hyperlipidemia, unspecified (principal); I48.91 Unspecified atrial fibrillation; N18.32 Chronic kidney disease, stage 3b; I10 Essential (primary) hypertension; D63.8 Anemia in other chronic diseases classified elsewhere; E83.9 Disorder of mineral metabolism, unspecified; M89.8X8 Other specified disorders of bone, other site; E79.0 Hyperuricemia without signs of inflammatory arthritis and tophaceous disease; N40.0 Benign prostatic hyperplasia without lower urinary tract symptoms
CPT/HCPCS: 36415; 80048; 80061; 85027; 82040; 82043; 82570; 83970; 84100; 84154; 84156

== ENCOUNTER 2022-04-19 02:25 | Outpatient (CLI) | payer MEDICARE, BC, SELFPAY ==
[2022-04-19 14:02] LABS: HCT 46.5 % (40.0-50.0); HGB 16.2 g/dL (13.5-17.5); MCH 30.2 pg (27.0-33.0); MCHC 34.8 % (32.0-36.0); MCV 87 fL (80-95); MPV 9.5 fL (8.0-11.0); Platelet Count 231 10^3/uL (130-400); RBC 5.36 10^6/uL (4.36-5.78); RDW 13.2 % (11.8-14.1); RDW-SD 41.5 fL; WBC 6.94 10^3/uL (4.4-10.8)
[2022-04-19 15:17] LABS: ALT 44 U/L (16-63); AST 22 U/L (15-37); Albumin 3.8 g/dL (3.4-5.0); Alkaline Phosphatase 98 U/L (46-116); Anion Gap 7.6 mmol/L (3-11); BUN 24 mg/dL (7-18); Bilirubin, Total 0.8 mg/dL (0.2-1.0); CO2 29.4 mmol/L (21.0-32.0); CREATININE 1.6 mg/dL (0.70-1.30); Calcium 8.9 mg/dL (8.5-10.1); Chloride 105 mmol/L (98-107); Estimated GFR 46.64 (mL/min/1.73m2); Glucose 106 mg/dL (74-106); Lipase 91 U/L (73-393); Potassium 3.5 mmol/L (3.5-5.1); Sodium 142 mmol/L (136-145); Total Protein 7.7 g/dL (6.4-8.2)
[2022-04-20 10:58] LABS: CA 19-9 20 U/mL (<35)
== END 2022-04-19 02:26 | disposition home or self-care (01) ==
LOC: LBO 02:25
PROVIDERS: PCP Family Medicine; Visit Provider Internal Medicine Gastroenterology
DX: R97.8 Other abnormal tumor markers (principal)
CPT/HCPCS: 36415; 80053; 83690; 85027; 86301

== ENCOUNTER 2023-04-11 02:30 | Outpatient (CLI) | payer MEDICARE, BC, SELFPAY ==
[2023-04-11 22:54] LABS: PSA, Diagnostic 1.4 ng/mL (<=4.5)
== END 2023-04-11 02:31 | disposition home or self-care (01) ==
PROVIDERS: PCP Family Medicine; Visit Provider Urology
DX: N40.0 Benign prostatic hyperplasia without lower urinary tract symptoms (principal)
CPT/HCPCS: 36415; 84153

== ENCOUNTER 2023-08-07 04:26 | Outpatient (CLI) | payer MEDICARE, BC, SELFPAY ==
[2023-08-07 13:16] LABS: Anion Gap 10.2 mmol/L (3-11); BUN 28 mg/dL (7-18); CO2 26.8 mmol/L (21.0-32.0); CREATININE 1.4 mg/dL (0.70-1.30); Calcium 9.5 mg/dL (8.5-10.1); Chloride 108 mmol/L (98-107); Estimated GFR 54.07 (mL/min/1.73m2); Glucose 116 mg/dL (74-106); Magnesium 1.8 mg/dL (1.8-2.4); Potassium 3.6 mmol/L (3.5-5.1); Sodium 145 mmol/L (136-145)
== END 2023-08-07 04:27 | disposition home or self-care (01) ==
PROVIDERS: Nurse Practitioner Acute Care; PCP Family Medicine
DX: Z79.899 Other long term (current) drug therapy (principal)
CPT/HCPCS: 36415; 80048; 83735

== ENCOUNTER 2024-01-04 14:32 | Emergency (ER) | payer MEDICARE, BC, SELFPAY ==
[2024-01-04 14:35] VITALS: BP 155/74; PULSE 60; RESP 12; TEMP 36.7; O2SAT 98
[2024-01-04 14:37] VITALS: O2SAT 98
[2024-01-04 14:39] VITALS: BP 155/74; PULSE 60
--- NOTE | 2024-01-04 15:07 | ED.GENADUL_ITS ---
Discharge Plan Disposition Patient Disposition: Home Condition: Good Discharge Details Clinical Impression: Acute right flank pain, Contusion Primary Care Provider: Brent Major ED Provider: Leo Talley Home Meds and New Rx's Prescriptions: No Action cephalexin 500 mg capsule 500 mg PO QID Eliquis 5 mg tablet 5 mg PO BID metoprolol succinate 50 mg tablet extended release 24 hr 50 mg PO BID allopurinol 100 mg tablet 300 mg PO DAILY potassium chloride 10 mEq capsule, extended release 40 meq PO QAM pantoprazole [Protonix] 20 MG tablet,delayed release (DR/EC) 20 mg PO DAILY atorvastatin 20 MG tablet 20 mg PO DAILY amlodipine 10 MG tablet 5 mg PO DAILY irbesartan 300 MG tablet 300 mg PO DAILY hydrochlorothiazide 12.5 mg capsule 25 mg PO DAILY potassium citrate 10 mEq (1,080 mg) tablet extended release 20 meq PO BID Discharge Instructions Instructions: Flank Pain ED Additional Instructions: At this time your CAT scan shows no significant abnormality, hematoma or fracture. You do have a very tiny kidney stone your kidney which is chronic and does not cause pain. You also have a small nodule in your lungs which is also chronic and stable. Please apply Voltaren/diclofenac gel which is [id number] to the affected area every 4-6 hours. Avoid any excessive lifting bending or moving in ways that activates those muscles in your flank that are currently tender. Avoid any activity that could cause repeat trauma to that area. If you notice any worsening of your symptoms, or any new symptoms such as vomiting, diarrhea, fever, chills, shortness of breath, chest pain, numbness, weakness, or fainting , please return immediately to the emergency department for reevaluation. Please follow up with your primary care provider as soon as possible for reassessment and reevaluation. As always, it was a pleasure participating in your medical care today. Referrals: Brent Major [Primary Care Provider] - HPI General Date/Time Provider Initiated Documentation: 01/04/24 14:40 . HPI Narrative: 68-year-old male with past medical history of high cholesterol, atrial fibrillation on Eliquis, presents today for evaluation of right flank pain. Patient states that 10 days ago he was carrying a heavy dock when he fell and hit his left hip. Despite this he found a red cameron that occurred in the buttock on the right-hand side, and coincidentally he also had pain that developed in the right flank. 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 Despite stretching and time he has not had any improvement in his right flank pain over the last 10 days. He denies fever or chills. He denies headache. He did not strike his head or lose consciousness. He denies any difficulty urinati ng or having bowel movements. He denies any other complaints at this time. Pain is made worse with movement, improved by nothing. Related Data Home Medications ?Medication ?Instructions ?Recorded ?Confirmed amlodipine 10 mg tablet 5 mg PO DAILY 06/19/16 11/29/19 atorvastatin 20 mg tablet 20 mg PO DAILY 06/19/16 11/29/19 irbesartan 300 mg tablet 300 mg PO DAILY 06/19/16 11/29/19 pantoprazole 20 mg tablet,delayed 20 mg PO DAILY 02/25/17 11/29/19 release (Protonix) apixaban 5 mg tablet (Eliquis) 5 mg PO BID 06/05/19 11/29/19 metoprolol succinate 50 mg 50 mg PO BID 06/05/19 11/29/19 tablet,extended release 24 hr allopurinol 100 mg tablet 300 mg PO DAILY 11/26/19 11/29/19 cephalexin 500 mg capsule 500 mg PO QID 11/26/19 11/29/19 hydrochlorothiazide 12.5 mg capsule 25 mg PO DAILY 11/26/19 11/29/19 potassium chloride 10 mEq 40 meq PO QAM 11/26/19 11/29/19 capsule,extended release potassium citrate 10 mEq (1,080 20 meq PO BID 11/26/19 11/29/19 mg) tablet,extended release Allergies Allergy/AdvReac Type Severity Reaction Status Date / Time adhesive Allergy Severe I blow up Unverified 11/29/19 11:01 just like a ballon General Stated Complaint: Nk/Back Pain TILA: 4 Review of Systems All systems reviewed & are unremarkable except as noted in HPI and below Exam Narrative Exam Narrative: 1.Const: Well-nourished, Well-developed, appearing stated age 2.Eyes: PERRL, no conjunctival injection, and symmetrical lids. 3.ENT: Atraumatic external nose and ears. Moist MM. Neck: Symmetric, trachea midline, No thyromegaly. 4.CVS: +S1/S2, No murmurs or gallops. Peripheral pulses 2+ and equal in all extremities. Brisk capillary refill in all extremities. 5.RESP: Unlabored respiratory effort. Clear to auscultation bilaterally. No wheezes rales or rhonchi 6.GI: Soft, Nontender/Nondistended, No hepatosplenomegaly. No guarding or r ebound. On palpation of the right flank the patient does have some mild tenderness above the hip/pelvis. No significant rib bony tenderness that I can appreciate. 7.MSK: Normocephalic/Atraumatic, Extremities w/o deformity or ttp No cyanosis or clubbing, Normal movement of all extremities 8.Skin: Warm, Dry. No rashes or lesions. No bruising hematoma or evidence of contusions. 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 Sensation grossly intact, no focal neurologic deficits. 10.Psych: (AAO) x3. Appropriate mood and affect Course Vital Signs Vital signs: Vital Signs Temperature 36.7 C 01/04/24 14:35 Pulse 60 01/04/24 14:35 Respiratory Rate 12 01/04/24 14:35 Blood Pressure 155/74 H 01/04/24 14:35 Pulse Oximetry 98 01/04/24 14:35 Temperature 36.7 C 01/04/24 14:35 Temperature Source Oral 01/04/24 14:35 Pulse 60 01/04/24 14:35 Respiratory Rate 12 01/04/24 14:35 Blood Pressure 155/74 H 01/04/24 14:35 Blood Pressure Position Sitting 01/04/24 14:35 Pulse Oximetry 98 01/04/24 14:35 Oxygen Delivery Method Room Air 01/04/24 14:35 Oxygen Flow Rate 0 01/04/24 14:35 Pain Level 8 01/04/24 14:35 Medical Decision Making 68-year-old male with past medical history of high cholesterol, atrial fibrillation on Eliquis, presents today for evaluation of right flank pain. Patient states that 10 days ago he was carrying a heavy dock when he fell and hit his left hip. Despite this he found a red cameron that occurred in the buttock on the right-hand side, and coincidentally he also had pain that developed in the right flank. 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 Despite stretching and time he has not had any improvement in his right flank pain over the last 10 days. He denies fever or chills. He denies headache. He did not strike his head or lose consciousness. He denies any difficulty urinating or having bowel movements. He denies any other complaints at this time. Pain is made worse with movement, improved by nothing. Exam demonstrates well-appearing male, no hip tenderness, no pain with logroll of the legs. No bruising on the left or right, mild tenderness on palpation of the right flank but nowhere else. Differential includes urolithiasis, psoas muscle hematoma, kidney injury secondary to trauma. With his Eliquis use I do feel that a CT scan with contrast is indicated to evaluate for hematoma or bleed. Rib fracture is also on the differential. Will evaluate for these etiologies, monitor closely and reassess. 5:06 PM Laboratory workup is returned, renal function good hemoglobin levels normal, INR normal, urinalysis shows minimal/trace blood and only 0-2 WBCs and 0-2 RBCs. No evidence of hematuria. CT scan shows no evidence of fracture or hematoma or other acute process. We did discuss the pulmonary nodule. He also does have a small kidney stone which is nonobstructing. Patient otherwise is stable. Patient will be discharged home. Suspect contusion as a cause of his symptoms. Will recommend topical Voltaren gel. Recommend rest from the multiple activities that he is still doing which certainly brings about worsening of his pain. Discussed red flags which to return. I have extensively reviewed the treatment plan and discharge instructions with the patient. I have addressed all patient concerns at this time. The patient was made aware of what symptoms to monitor for that would warrant a return to the emergency department. Discussed the plan with the patient, they demonstrate verbal understanding and agreement with our assessment and plan at this time. The documentation in this chart was dictated using [employer] dictation software. Please excuse any dictation errors. FINDINGS: ABDOMEN: Lung Bases: There is a stable 7 mm nodule in the right lower lobe. This is unchanged dating back to 2011. Calcified granuloma are seen in the lung bases. Liver: Normal density. Stable tiny cysts in the liver. No suspicious hepatic masses. Portal, Superior Mesenteric, and Splenic Veins: Unremarkable. Gallbladder and Biliary Tract: Status post cholecystectomy. No biliary ductal dilatation. Pancreas: Normal density, no abnormal calcifications or inflammatory process. Spleen: Normal. Adrenals: No masses seen. Kidneys: Normal size, contour and axis. There is a 2 mm nonobstructing stone in the lower pole of the left kidney. Multiple bilateral simple renal cysts. No follow-up is recommended. Abdominal Aorta: Abdominal portion non-dilated. Atherosclerotic calcification is present. Bowel: No obstruction or bowel wall thickening. Appendix is unremarkable. Peritoneal Cavity: No ascites, collection or mesenteric inflammatory response. No free air. Lymph Nodes: Within normal limits. Bones: Within normal limits for the patient's age. No evidence of a displaced rib fracture. Stable appearance of the bones. Soft Tissues: Unremarkable. No evidence of a hematoma or soft tissue swelling in the right flank. PELVIS: Bladder: Symmetric distention, no gross wall thickening. Reproductive Organs: There is prostatomegaly. Lymph Nodes: Within normal limits. Bones: Within normal limits for the patient's age. IMPRESSION: 1. No acute abdominal or pelvic process. 2. No evidence of a displaced rib fracture or hematoma in the soft tissues. 3. Incidental findings in the chest, abdomen and pelvis as described above. Quality:SDOH Health Related Social Needs: No Data to Display PFSH All Active Problems (Updated 01/04/24 @ 16:51 by Leo Talley DO) Contusion (Acute) Acute right flank pain (Acute) Infected sebaceous cyst of skin (Acute) Internal derangement of left knee (Acute) Injected: 06/05/2019 Social History Smoking risk assessment performed?: No Current gender identity: male Do you feel safe at home: Yes Do you feel safe in your relationship?: Yes
[2024-01-04 15:26] LABS: Abs Immature Grans 0.01 10^3/uL (0.0-0.06); Absolute Basophil Count 0.03 10^3/uL (0.0-0.2); Absolute Eosinophil Count 0.14 10^3/uL (0.0-0.7); Absolute Lymphocyte Count 1.34 10^3/uL (1.2-3.4); Absolute Monocyte Count 0.59 10^3/uL (0.1-0.8); Basophils % 0.4 %; Eosinophils % 2.1 %; HCT 43.1 % (40.0-50.0); HGB 15.1 g/dL (13.5-17.5); Immature Grans % 0.1 %; Lymphocytes % 19.7 %; MCH 30.9 pg (27.0-33.0); MCV 88 fL (80-95); MPV 9.7 fL (8.0-11.0); Monocytes % 8.7 %; Platelet Count 200 10^3/uL (130-400); RBC 4.89 10^6/uL (4.36-5.78); RDW 13.3 % (11.8-14.1); WBC 6.81 10^3/uL (4.4-10.8)
[2024-01-04 15:35] LABS: BUN 26 mg/dL (7-18); CREATININE 1.2 mg/dL (0.70-1.30); Calcium 8.8 mg/dL (8.5-10.1); Chloride 106 mmol/L (98-107); Estimated GFR 65.06 (mL/min/1.73m2); Glucose 103 mg/dL (74-106); Potassium 3.5 mmol/L (3.5-5.1); Sodium 142 mmol/L (136-145)
[2024-01-04 15:39] LABS: PTT Activated 32.3 sec (23.6-32.8); Prothrombin Time 10.4 sec (9.1-11.1)
[2024-01-04 15:50] LABS: Bilirubin Negative (Negative); Blood Trace-intact (Negative); Clarity Clear (Clear); Glucose Negative (Negative); Ketones Negative (Negative); Leukocyte Esterase Negative (Negative); Nitrite Negative (Negative); Urobilinogen 0.2 mg/dL (Up to 0.2); pH 6.5 (5-8)
[2024-01-04] MEDS: Normal Saline - Diluent 50 ML VIAL IJ (15:57)
[2024-01-04 15:59] LABS: Bacteria Negative HPF (Negative); C & S Indicated? No; Casts Negative LPF (Negative); Crystals Negative HPF (Negative); Epithelial Cells Rare HPF (Negative); Mucus Negative (Negative); RBC 0-2 HPF (0-2); WBC 0-2 HPF (0-5)
[2024-01-04] MEDS: Omnipaque 350 MG/ML 100 ML BTL IJ (15:59)
--- NOTE | 2024-01-04 16:00 | DI.CT_ITS ---
Exam(s) CT ABDOMEN PELVIS W EXAM: CT ABDOMEN PELVIS W CLINICAL HISTORY: fall, on elequis, right flank pain, r/o hematoma TECHNIQUE: Imaging Protocol: Axial computed tomography images with coronal and sagittal reformatted images were created and reviewed. CONTRAST MATERIAL: Intravenous: Omnipaque 350 Contrast volume:100 mL Oral: No COMPARISON: CT ABD PELVIS WITH CONTRAST from 05/19/2012 CT CHEST ABD PELVIS WO CONTRAST from 02/25/[address] NECK CHEST W from 11/22/2019 FINDINGS: ABDOMEN: Lung Bases: There is a stable 7 mm nodule in the right lower lobe. This is unchanged dating back to 2011. Calcified granuloma are seen in the lung bases. Liver: Normal density. Stable tiny cysts in the liver. No suspicious hepatic masses. Portal, Superior Mesenteric, and Splenic Veins: Unremarkable. Gallbladder and Biliary Tract: Status post cholecystectomy. No biliary ductal dilatation. Pancreas: Normal density, no abnormal calcifications or inflammatory process. Spleen: Normal. Adrenals: No masses seen. Kidneys: Normal size, contour and axis. There is a 2 mm nonobstructing stone in the lower pole of the left kidney. Multiple bilateral simple renal cysts. No follow-up is recommended. Abdominal Aorta: Abdominal portion non-dilated. Atherosclerotic calcification is present. Bowel: No obstruction or bowel wall thickening. Appendix is unremarkable. Peritoneal Cavity: No ascites, collection or mesenteric inflammatory response. No free air. Lymph Nodes: Within normal limits. Bones: Within normal limits for the patient's age. No evidence of a displaced rib fracture. Stable appearance of the bones. Soft Tissues: Unremarkable. No evidence of a hematoma or soft tissue swelling in the right flank. PELVIS: Bladder: Symmetric distention, no gross wall thickening. Reproductive Organs: There is prostatomegaly. Lymph Nodes: Within normal limits. Bones: Within normal limits for the patient's age. IMPRESSION: 1. No acute abdominal or pelvic process. 2. No evidence of a displaced rib fracture or hematoma in the soft tissues. 3. Incidental findings in the chest, abdomen and pelvis as described above. RADIATION DOSE DELIVERED: 1,619.36mGy.cm Total DLP DATA REPOSITORY: All CT scans at this facility are submitted to the National Radiology Data Registry (NRDR) Dose Index Registry (DIR) with the [employer] (A[employer]). RADIATION OPTIMIZATION: All CT scans at this facility use at least one of these dose optimization te chniques: automated exposure control; mA and/or kV adjustment per patient size (includes targeted exa ms where dose is matched to clinical indication); or iterative reconstruction.
== END 2024-01-04 17:07 | disposition home or self-care (01) ==
PROVIDERS: Emergency Provider Student in an Organized Health Care Education/Training Program; PCP Family Medicine
DX: R10.31 Right lower quadrant pain (principal); S30.0XXA Contusion of lower back and pelvis, initial encounter; X50.0XXA Overexertion from strenuous movement or load, initial encounter; W19.XXXA Unspecified fall, initial encounter
CPT/HCPCS: 80048; 86850; 86900; 86901; 99285; 74177; 81003; 81015; 85025; 85610; 85730; 99283; J3490

== ENCOUNTER 2024-03-07 09:55 | Outpatient (CLI) | payer MEDICARE, BC, SELFPAY ==
[2024-03-07 14:14] LABS: BUN 22 mg/dL (7-18); CREATININE 1.4 mg/dL (0.70-1.30); Calcium 9.3 mg/dL (8.5-10.1); Chloride 106 mmol/L (98-107); Estimated GFR 54.07 (mL/min/1.73m2); Glucose 108 mg/dL (74-106); Magnesium 1.9 mg/dL (1.8-2.4); Potassium 3.7 mmol/L (3.5-5.1); Sodium 143 mmol/L (136-145)
[2024-03-07 22:55] LABS: PSA, Diagnostic 1.5 ng/mL (<=6.5)
== END 2024-03-07 09:56 | disposition home or self-care (01) ==
PROVIDERS: PCP Family Medicine; Visit Provider Nurse Practitioner Family
DX: N40.1 Benign prostatic hyperplasia with lower urinary tract symptoms (principal)
CPT/HCPCS: 36415; 80048; 83735; 84153

== ENCOUNTER 2024-03-25 10:14 | Emergency (ER) | payer MEDICARE, BC, SELFPAY ==
[2024-03-25 10:18] VITALS: BP 131/77; PULSE 66; RESP 16; TEMP 36.3
--- NOTE | 2024-03-25 12:32 | ED.GENADUL_ITS ---
Discharge Plan Disposition Patient Disposition: Home Condition: Stable Discharge Details Clinical Impression: Rash Primary Care Provider: Brent Major ED Provider: Javi Nieves Home Meds and New Rx's Prescriptions: New doxycycline hyclate 100 mg tablet 100 mg PO BID Qty: 14 0RF prednisone 20 mg tablet See Rx Instructions .ROUTE .COMPLEX Qty: 24 0RF Rx Instructions: Take 60 mg daily for 4 days, then 40 mg daily for 4 days, then 20 mg daily for 4 days. Continued Eliquis 5 mg tablet 5 mg PO BID metoprolol succinate 50 mg tablet extended release 24 hr 50 mg PO BID allopurinol 100 mg tablet 300 mg PO DAILY potassium chloride 10 mEq capsule, extended release 40 meq PO QAM pantoprazole [Protonix] 20 MG tablet,delayed release (DR/EC) 20 mg PO DAILY tamsulosin 0.4 mg capsule 0.4 mg PO DAILY atorvastatin 20 MG tablet 20 mg PO DAILY amlodipine 10 MG tablet 5 mg PO DAILY irbesartan 300 MG tablet 300 mg PO DAILY hydrochlorothiazide 12.5 mg capsule 25 mg PO DAILY potassium citrate 10 mEq (1,080 mg) tablet extended release 20 meq PO BID Discharge Instructions Additional Instructions: Your blood work was reassuring that this is not a severe infectious etiology. The tick panel is still pending, in the meantime I am going to start you on doxycycline to treat potential tick related illnesses Also take the prednisone as prescribed If not better in 1 to 2 weeks follow-up with your PCP or express care If you feel more ill, have high fevers or difficulty breathing return to the emergency department for reevaluation HPI General Mode of arrival: ambulatory . Date/Time Provider Initiated Documentation: 03/25/24 10:34 . Limitations to Documentation: no limitations . Information obtained by: patient . History of Present Illness 68 year old M presents to the emergency department with the chief complaint of lesion on right calf, redness on torso, described as mild, Patient started experiencing this hour(s) (12) and it has been constant. No relieving factors improve symptom(s), No exacerbating factors reported . Patient notes no other symptoms.. Patient did receive the following treatments prior to arrival, none Related Data Home Medications ?Medication ?Instructions ?Recorded ?Confirmed amlodipine 10 mg tablet 5 mg PO DAILY 06/19/16 03/25/24 atorvastatin 20 mg tablet 20 mg PO DAILY 06/19/16 03/25/24 irbesartan 300 mg tablet 300 mg PO DAILY 06/19/16 03/25/24 pantoprazole 20 mg tablet,delayed 20 mg PO DAILY 02/25/17 03/25/24 release (Protonix) apixaban 5 mg tablet (Eliquis) 5 mg PO BID 06/05/19 03/25/24 metoprolol succinate 50 mg 50 mg PO BID 06/05/19 03/25/24 tablet,extended release 24 hr allopurinol 100 mg tablet 300 mg PO DAILY 11/26/19 03/25/24 hydrochlorothiazide 12.5 mg capsule 25 mg PO DAILY 11/26/19 03/25/24 potassium chloride 10 mEq 40 meq PO QAM 11/26/19 03/25/24 capsule,extended release potassium citrate 10 mEq (1,080 20 meq PO BID 11/26/19 03/25/24 mg) tablet,extended release doxycycline hyclate 100 mg tablet 100 mg PO BID #14 tabs 03/25/24 prednisone 20 mg tablet See Rx Instructions .Route 03/25/24 .COMPLEX #24 tabs tamsulosin 0.4 mg capsule 0.4 mg PO DAILY 03/25/24 03/25/24 Previous Rx's ?Medication ?Instructions ?Recorded doxycycline hyclate 100 mg tablet 100 mg PO BID #14 tabs 03/25/24 prednisone 20 mg tablet See Rx Instructions .Route 03/25/24 .COMPLEX #24 tabs Allergies Allergy/AdvReac Type Severity Reaction Status Date / Time adhesive Allergy Severe I blow up Unverified 03/25/24 12:48 just like a ballon General Stated Complaint: GenMedical TILA: 3 Review of Systems All systems reviewed & are unremarkable except as noted in HPI and below Constitutional Constitutional: Denies chills, Denies fever(s) and Denies weakness Cardiovascular Cardiovascular: Denies chest pain and Denies dyspnea Respiratory Respiratory: Denies cough and Denies dyspnea Gastrointestinal Gastrointestinal: Denies abdominal pain, Denies nausea and Denies vomiting Integumentary/Breasts Skin/Breast: Reports rash Neurologic Neurologic: Denies weakness Endocrine Endocrine: Denies cold intolerance Exam Const General: no acute distress Orientation: alert HENMT Head: normal to inspection Ears: external ears normal General nose exam: external nose normal Mouth: moist mucous membranes Eyes General: appearance normal, both eyes and all related structures Neck Neck: normal visual inspection Resp Effort & Inspection: normal respiratory effort and able to speak in complete sentences Cardio Rate: regular rate Skin General skin exam: erythema Neuro General: patient alert and patient oriented x3 Extrem General: normal to inspection Psych Mental Status: mental status grossly normal Course Vital Signs Vital signs: Vital Signs Temperature 36.3 C L 03/25/24 10:18 Pulse 66 03/25/24 10:18 Respiratory Rate 16 03/25/24 10:18 Blood Pressure 131/77 03/25/24 10:18 Temperature 36.3 C L 03/25/24 10:18 Temperature Source Tympanic 03/25/24 10:18 Pulse 66 03/25/24 10:18 Respiratory Rate 16 03/25/24 10:18 Blood Pressure 131/77 03/25/24 10:18 Blood Pressure Position Sitting 03/25/24 10:18 Oxygen Delivery Method Room Air 03/25/24 10:18 Oxygen Flow Rate 0 03/25/24 10:18 Pain Level 0 03/25/24 10:18 Medical Decision Making 68-year-old male with a history of hypertension comes in with lesion diagnosed on his right lower calf and then today has had erythema of his torso. He denies any other symptoms such as fevers, chills, difficulty breathing, abdominal symptoms. He appears well on exam speaking full sentences. He has mild erythema of his chest and also has upper back. There is no tenderness or warmth. He has a 2 cm circular red lesion on his right lower lateral calf. There is no tenderness or crepitus. There is no bull's-eye in appearance. He did not pull any ticks off of it that he is aware of. His rash on his torso almost appears like a dermatitis, will check a CBC and CMP and procalcitonin though my suspicion for cellulitis is low and also send a tick panel. He has no mucous membrane lesions to suggest Macario-Miguel or toxic epidermal necrolysis. Labs show no significant changes from baseline, he is stable, I suspect this is more of a allergy response but will initiate doxycycline to cover for tick related illnesses. Will also initiate a steroid taper. He will follow-up with his PCP if not improving and return precautions given Differential Diagnosis Differential Diagnosis: lyme, dermatitis, cellulitis Lab Data Lab results reviewed: Yes I reviewed the patient's lab results. Quality:SDNE Health Related Social Needs: No Data to Display PFSH All Active Problems (Updated 03/25/24 @ 14:16 by Javi Nieves MD) Rash (Acute) Infected sebaceous cyst of skin (Acute) Internal derangement of left knee (Acute) Injected: 06/05/2019 Social History Smoking risk assessment performed?: No Current gender identity: male Do you feel safe at home: Yes Do you feel safe in your relationship?: Yes
[2024-03-25 13:17] LABS: Abs Immature Grans 0.04 10^3/uL (0.0-0.06); Absolute Basophil Count 0.01 10^3/uL (0.0-0.2); Absolute Eosinophil Count 0.04 10^3/uL (0.0-0.7); Absolute Lymphocyte Count 0.49 10^3/uL (1.2-3.4); Absolute Monocyte Count 0.35 10^3/uL (0.1-0.8); Absolute Neutrophil Count 7.09 10^3/uL (1.2-6.7); Basophils % 0.1 %; Eosinophils % 0.5 %; HCT 54.3 % (40.0-50.0); HGB 18.3 g/dL (13.5-17.5); Immature Grans % 0.5 %; Lymphocytes % 6.1 %; MCH 30.5 pg (27.0-33.0); MCHC 33.7 % (32.0-36.0); MCV 91 fL (80-95); MPV 9.5 fL (8.0-11.0); Monocytes % 4.4 %; Neutrophils % 88.4 %; Platelet Count 190 10^3/uL (130-400); RDW 13.8 % (11.8-14.1); RDW-SD 46.1 fL; WBC 8.02 10^3/uL (4.4-10.8)
[2024-03-25 13:43] LABS: ALT 36 U/L (16-63); AST 13 U/L (15-37); Albumin 3.4 g/dL (3.4-5.0); Alkaline Phosphatase 103 U/L (46-116); Anion Gap 9.3 mmol/L (3-11); BUN 34 mg/dL (7-18); Bilirubin, Total 1.11 mg/dL (0.2-1.0); CO2 28.7 mmol/L (21.0-32.0); CREATININE 1.6 mg/dL (0.70-1.30); Calcium 8.9 mg/dL (8.5-10.1); Chloride 104 mmol/L (98-107); Estimated GFR 46.06 (mL/min/1.73m2); Glucose 114 mg/dL (74-106); Potassium 3.9 mmol/L (3.5-5.1); Sodium 142 mmol/L (136-145); Total Protein 7.3 g/dL (6.4-8.2)
[2024-03-25 14:05] LABS: Procalcitonin 0.3 ng/mL
[2024-03-28 09:42] LABS: Lyme Ab w Rflx to Lyme Confirm Negative (Negative)
[2024-03-29 21:47] LABS: Anaplasma phagocytophilum Negative (Negative); B. miyamotoi PCR Negative (Negative); Babesia divergens/MO-1 Negative (Negative); Babesia duncani Negative (Negative); Babesia microti Negative (Negative); Ehrlichia chaffeensis Negative (Negative); Ehrlichia ewingii/canis Negative (Negative); Ehrlichia muris eauclairensis Negative (Negative)
== END 2024-03-25 14:42 | disposition home or self-care (01) ==
PROVIDERS: Emergency Provider Emergency Medicine; PCP Family Medicine
DX: R21 Rash and other nonspecific skin eruption (principal); L29.9 Pruritus, unspecified; L98.9 Disorder of the skin and subcutaneous tissue, unspecified
CPT/HCPCS: 36415; 80053; 84145; 87798; 99283; 83735; 85025; 86618

== ENCOUNTER 2024-07-22 12:12 | Inpatient (IN) | payer MEDICARE, BC, SELFPAY ==
[2024-07-22] VITALS (34 sets, daily range): BP systolic 104–148; BP diastolic 58–71; PULSE 66–112; RESP 9–29; TEMP 37.1–39.3; O2SAT 83–99
--- NOTE | 2024-07-22 12:15 | RT.EKG_ITS ---
APPROVED REPORT Exam: Resting ECG Reason for Exam: SOB Patient Location: E HR:80 bpm ECG Measurements Heart Rate 80 AXIS FL [id number] P [id number] QRSd 94 QRS 59 QT 366 T 25 QTc 422 Conclusion Atrial fibrillation...? atrial activity No STEMI
--- NOTE | 2024-07-22 12:15 | DI.RAD_ITS ---
Exam(s) XR PORTABLE CHEST AP EXAM: XR PORTABLE CHEST AP CLINICAL HISTORY: SOB, cough TECHNIQUE: 2D digital imaging was performed of the chest. One image was obtained. An AP view was ob tained. COMPARISON: CR CHEST 2 VIEWS PA,LAT from 06/19/2016 FINDINGS: MEDIASTINUM: Normal. HEART: Cardiomegaly. There is a threat monitoring analyst in place. PULMONARY VASCULATURE: There is pulmonary venous congestion. LUNGS: No focal consolidating infiltrates. PLEURAL SPACE: No pleural effusion or pneumothorax. BONE:Within normal limits for the patient's age. OTHER FINDINGS:Normal. IMPRESSION: Cardiomegaly and pulmonary venous congestion suspicious for fluid overload. No focal consolidating i nfiltrates. DATA REPOSITORY: RADIATION DOSE DELIVERED:
--- NOTE | 2024-07-22 12:30 | W.ED.GENAD ---
Discharge Plan Disposition Patient Disposition: Admit to [facility] Condition: Fair Discharge Details Chief Complaint: RespSymp Clinical Impression: Influenza A, Pneumonia, Atrial fibrillation, Elevated serum creatinine Primary Care Provider: Brent Major ED Provider: Pricila Martinez [place] Meds and New Rx's Prescriptions: No Action Eliquis 5 mg tablet 5 mg PO BID metoprolol succinate 50 mg tablet extended release 24 hr 50 mg PO BID allopurinol 100 mg tablet 300 mg PO DAILY potassium chloride 10 mEq capsule, extended release 40 meq PO QAM pantoprazole [Protonix] 20 MG tablet,delayed release (DR/EC) 20 mg PO DAILY tamsulosin 0.4 mg capsule 0.4 mg PO DAILY doxycycline hyclate 100 mg tablet 100 mg PO BID Qty: 14 0RF atorvastatin 20 MG tablet 20 mg PO DAILY amlodipine 10 MG tablet 5 mg PO DAILY irbesartan 300 MG tablet 300 mg PO DAILY hydrochlorothiazide 12.5 mg capsule 25 mg PO DAILY potassium citrate 10 mEq (1,080 mg) tablet extended release 20 meq PO BID HPI General Date/Time Provider Initiated Documentation: 07/22/24 12:16. Limitations to Documentation: no limitations. Information obtained by: patient, family () and RN notes reviewed. History of Present Illness 69 year old M presents to the emergency department with the chief complaint of cough, congestion, SOB, described as severe and similar to prior episodes (has had pna inthe past), and is localized to the chest. Patient reports no radiation. Patient started experiencing this day(s) (1-2) and it has been constant. No relieving factors improve symptom(s), No exacerbating factors reported . Patient notes cough, diaphoresis, fever/chills, loss of appetite, malaise and shortness of breath; denies chest pain, headaches, nausea/vomiting, rash and syncope. Patient did receive the following treatments prior to arrival, none Related Data Home Medications ?Medication ?Instructions ?Recorded ?Confirmed amlodipine 10 mg tablet 5 mg PO DAILY 06/19/16 07/22/24 atorvastatin 20 mg tablet 20 mg PO DAILY 06/19/16 07/22/24 irbesartan 300 mg tablet 300 mg PO DAILY 06/19/16 07/22/24 pantoprazole 20 mg tablet,delayed 20 mg PO DAILY 02/25/17 07/22/24 release (Protonix) apixaban 5 mg tablet (Eliquis) 5 mg PO BID 06/05/19 07/22/24 metoprolol succinate 50 mg 50 mg PO BID 06/05/19 07/22/24 tablet,extended release 24 hr allopurinol 100 mg tablet 300 mg PO DAILY 11/26/19 07/22/24 hydrochlorothiazide 12.5 mg capsule 25 mg PO DAILY 11/26/19 07/22/24 potassium chloride 10 mEq 40 meq PO QAM 11/26/19 07/22/24 capsule,extended release potassium citrate 10 mEq (1,080 20 meq PO BID 11/26/19 07/22/24 mg) tablet,extended release doxycycline hyclate 100 mg tablet 100 mg PO BID #14 tabs 03/25/24 07/22/24 tamsulosin 0.4 mg capsule 0.4 mg PO DAILY 03/25/24 07/22/24 Previous Rx's ?Medication ?Instructions ?Recorded doxycycline hyclate 100 mg tablet 100 mg PO BID #14 tabs 03/25/24 Allergies Allergy/AdvReac Type Severity Reaction Status Date / Time adhesive Allergy Severe I blow up Unverified 07/22/24 12:21 just like a ballon General Stated Complaint: RespSymp TILA: 3 Review of Systems Constitutional Constitutional: Reports as per HPI and Denies headache(s) Eyes Eyes: Reports as per HPI, Denies eye discharge and Denies irritation ENT Ears, Nose, Mouth, and Throat: Reports as per HPI and Denies headache(s) Cardiovascular Cardiovascular: Reports as per HPI and Denies chest pain Respiratory Respiratory: Reports as per HPI Gastrointestinal Gastrointestinal: Reports as per HPI, Denies abdominal pain, Denies change in bowel habits, Denies nausea and Denies vomiting Integumentary/Breasts Skin/Breast: Reports as per HPI and Denies rash Neurologic Neurologic: Reports as per HPI and Denies headache(s) Exam Const General: cooperative, healthy appearing, comfortable, no acute distress, well developed and well groomed Nutritional Appearance: well nourished Orientation: alert and awake [facility] Head: normal to inspection, normocephalic and atraumatic Ears: hearing grossly normal bilaterally Face and sinus: normal facial exam, sinuses nontender and face symmetric Mouth: oral mucosae normal, lip normal, tongue normal, oropharynx normal and moist mucous membranes Teeth and gingiva: dentition normal Throat: posterior oropharynx normal, tonsils normal and uvula midline Eyes General: appearance normal, both eyes and all related structures Neck Neck: normal visual inspection, full ROM and no lymphadenopathy Chest Chest: normal inspection of the chest, no crepitus and no tenderness Resp Effort & Inspection: cough, labored, no segmental paradox chest wall movement, tachypneic, no tracheal deviation, tripod positioning and uses accessory muscles Auscultation: clear to auscultation bilaterally, diminished lung sounds, no rales, no rhonchi and no wheezes Cardio Rate: regular rate Rhythm: regular rhythm Heart Sounds: S1 normal and S2 normal Skin General skin exam: no rashes or lesions noted Neuro General: patient alert and patient awake Cognition: normal cognition Speech: speech normal Gait: normal gait Extrem General: normal to inspection, capillary refill normal, no clubbing, cyanosis or edema, no pedal edema and no calf tenderness Course Vital Signs Vital signs: Vital Signs Pulse 81 07/22/24 12:19 Respiratory Rate 16 07/22/24 12:19 Blood Pressure 140/71 07/22/24 12:19 Pulse Oximetry 83 L 07/22/24 12:19 Temperature 38.2 C H 07/22/24 12:24 Pulse 81 07/22/24 12:19 Respiratory Rate 16 07/22/24 12:19 Blood Pressure 140/71 07/22/24 12:19 Pulse Oximetry 83 L 07/22/24 12:19 Oxygen Delivery Method Room Air 07/22/24 12:19 Oxygen Flow Rate 0 07/22/24 12:19 Pain Level 0 07/22/24 12:19 Medical Decision Making Patient is a pleasant 69-year-old gentleman, brought in by his , with chief complaint of shortness of breath after being ill for the past few days. He endorses cough leading up to this. Fever at home. Began having shortness of breath yesterday. He does report that he has had a history of pneumonia as well as pneumothorax historically. He denies any chest pain. Has not taken anything for his symptoms as of yet. is also been ill. No GI upset. No chest pain or other symptoms. Patient is anticoagulated for known history of atrial fibrillation, no missed doses of his apixaban. No recent trave On exam, patient appears acutely ill. He was initially 83% on room air. 92% on 4 L nasal cannula. Patient receiving nebulizer now. Lung sounds are faint. Patient has a temp of 38 2. Will obtain bedside x-ray. No chest pain, no crepitus or chest abnormalities. Symptoms are appreciated in all travis but the are diminished. Patient is unable to speak in full sentences, short phrases is tachypneic with increased work of respiration. Abdominal exam is benign. No lower extremity edema. Calves are soft and nontender. Concern primarily for infectious etiology, particular given the fever and that his is also ill. Patient is anticoagulated so very low suspicion for PE. History exam is more concerning for COVID or flu. Considered bacterial pneumonia as well but given the sudden onset, concern for viral pathology. Will obtain chest x-ray, flu and COVID testing. Obtain labs including VBG given work of breathing. He does not have any known respiratory history so hold off on any steroids or other immediate interventions. He does not have a history of CHF, does have a history of atrial fibrillation but has been well-maintained on his current medication regimen. Has had ablations historically. Reviewed the chest x-ray, radiologist is concerned for fluid overload. This is not really fit clinically. I am more concerned for this representing a viral pathology but will hold off for further imaging as well as results from the labs. CBC without significant abnormality. Coags as expected. VBG shows a pH of 7.43 but otherwise normal, including lactate. CMP significant for creatinine of 1.4 which is patient's baseline. Patient's BNP is 593 so not significantly elevated although I do not have a prior for comparison. Troponin is negative x 2. Patient is flu positive. Given the findings on the chest x-ray as well as his clinical progression, will move forward with a CT to evaluate for any potential pneumonia. CT obtained, several areas of consolidations, concerning for a bacterial pneumonia and will begin the patient on the antiviral for influenza as well as cefepime and doxycycline. No recent hospitalizations or recent antibiotics. Discussed this plan with the patient. She is continue to have oxygen requirements, plan for admission. Patient agrees with this plan as does his . Consulted with hospitalist who agrees to admission. This documentation was generated using Approvaation system, please disregard any oddities of phrase or misspellings. Quality:SDOH Health Related Social Needs: No Data to Display [facility] All Active Problems (Updated 07/22/24 @ 15:58 by YOU Schwartz) Elevated serum creatinine (Acute) Atrial fibrillation (Chronic) Pneumonia (Acute) Influenza A (Acute) Infected sebaceous cyst of skin (Acute) Internal derangement of left knee (Acute) Injected: 06/05/2019 Social History Smoking/Tobacco Use Status: Never Smoking risk assessment performed?: Yes Alcohol Intake: current Drug use: Never Substance use type: does not use Current gender identity: male Do you feel safe at home: Yes Do you feel safe in your relationship?: Yes
[2024-07-22 12:36] LABS: BE (Venous) 3 mmol/L (-2-3); HCO3 (Venous) 28 mmol/L (23-28); Lactate 1.3 mmol/L (<or=2.0); O2 Sat (Venous) 78 %; TCO2 (Venous) 24 mmol/L (24-29); pCO2 (Venous) 42 mmHg (41-51); pH (Venous) 7.43 (7.31-7.41); pO2 (Venous) 41 mmHg
[2024-07-22 12:37] LABS: Abs Immature Grans 0.04 10^3/uL (0.0-0.06); Absolute Basophil Count 0.02 10^3/uL (0.0-0.2); Absolute Eosinophil Count 0.04 10^3/uL (0.0-0.7); Absolute Lymphocyte Count 0.51 10^3/uL (1.2-3.4); Absolute Monocyte Count 0.81 10^3/uL (0.1-0.8); Absolute Neutrophil Count 6.04 10^3/uL (1.2-6.7); Basophils % 0.3 %; Eosinophils % 0.5 %; HGB 15.6 g/dL (13.5-17.5); Immature Grans % 0.5 %; Lymphocytes % 6.8 %; MCH 30.4 pg (27.0-33.0); MCHC 33.2 % (32.0-36.0); MCV 92 fL (80-95); MPV 9.6 fL (8.0-11.0); Monocytes % 10.9 %; Platelet Count 173 10^3/uL (130-400); RBC 5.13 10^6/uL (4.36-5.78); RDW 13.7 % (11.8-14.1); RDW-SD 46.9 fL; WBC 7.46 10^3/uL (4.4-10.8)
[2024-07-22] MEDS: ACETAMINOPHEN 1,000 MG/100 ML BAG 400 MG IVPB (12:46)
[2024-07-22] MEDS: Albuterol/Ipratropium 3 ML UPD VIAL UPD (12:46)
[2024-07-22] MEDS: Lactated Ringers 500 ML IV (12:47)
[2024-07-22 12:51] LABS: INR 1.2 (0.9-1.1); PTT Activated 35.7 sec (20.6-30.2); Prothrombin Time 12.1 sec (9.1-11.1)
[2024-07-22 13:03] LABS: ALT 51 U/L (16-63); AST 26 U/L (15-37); Albumin 3.7 g/dL (3.4-5.0); Alkaline Phosphatase 83 U/L (46-116); Anion Gap 7.6 mmol/L (3-11); BUN 21 mg/dL (7-18); Bilirubin, Total 1.02 mg/dL (0.2-1.0); CO2 30.4 mmol/L (21.0-32.0); CREATININE 1.4 mg/dL (0.70-1.30); Calcium 9.2 mg/dL (8.5-10.1); Chloride 108 mmol/L (98-107); Estimated GFR 53.74 (mL/min/1.73m2); Glucose 106 mg/dL (74-106); Potassium 4.2 mmol/L (3.5-5.1); Sodium 146 mmol/L (136-145); Total Protein 7.4 g/dL (6.4-8.2); Troponin I 14 ng/L (<or=76)
[2024-07-22 13:06] LABS: NT-proBNP 593 pg/mL (<300)
[2024-07-22] MEDS: Normal Saline - Diluent 50 ML VIAL IJ (14:04)
[2024-07-22] MEDS: Omnipaque 350 MG/ML 100 ML BTL IJ (14:05)
[2024-07-22 14:11] LABS: Troponin I 12 ng/L (<or=76)
--- NOTE | 2024-07-22 14:21 | DI.CT_ITS ---
Exam(s) CT CHEST PE CTA EXAM: CT CHEST PE CTA CLINICAL HISTORY: SOB, cough, hypoxic. TECHNIQUE: Imaging Protocol: CT angiography of the chest was performed using pulmonary embolus tomás col. Multi planar reconstructions were performed. CONTRAST MATERIAL: Intravenous: Omnipaque 350 Contrast volume: 100 cc COMPARISON: CR XR PORTABLE CHEST AP from 07/22/2024 FINDINGS: CHEST: PULMONARY ARTERIES: There are no intraluminal filling defects to suggest acute pulmonary emboli. LUNGS: There is some confluent infiltrate in the left lower lobe posterior basal segment, not associa brittani with a pleural effusion. There is a nodular infiltrate in the right upper lobe measuring 1.7 x 1 .1 cm. Mild increased subpleural markings are also noted in the right lower lobe posterior basal seg ment.. There are no pleural effusions. MEDIASTINUM: There is no hilar nor mediastinal adenopathy. CARDIAC: Heart size is upper normal. There is no pericardial effusion.Caliber of the thoracic aorta is upper normal limits. No evidence of aortic dissection. Ventricular ratio is 1:1. There is no ref lux of IV contrast into the intrahepatic IVC. PARTIALLY VISUALIZED UPPERMOST ABDOMEN: No adrenal findings. Partially included bilateral kidney cys ts. OSSEOUS: No significant osseous lesions.. IMPRESSION: 1. No evidence of acute pulmonary emboli. However, there is infiltrate in the posterior basal segmen t of the left lower lobe as well as a 1.7 x 1.1 cm nodular infiltrate in the right upper lobe. No pl eural effusions nor intrathoracic adenopathy. 2. Cardiomegaly. No pericardial effusion. No aortic dissection. Report called by myself to ER provider 07/22/2024 3:02 p.m. RADIATION DOSE DELIVERED: 220.33mGy.cm Total DLP DATA REPOSITORY: All CT scans at this facility are submitted to the National Radiology Data Registry (NRDR) Dose Index Registry (DIR) with the [employer] (ACR). RADIATION OPTIMIZATION: All CT scans at this facility use at least one of these dose optimization te chniques: automated exposure control; mA and/or kV adjustment per patient size (includes targeted exa ms where dose is matched to clinical indication); or iterative reconstruction.
[2024-07-22 14:29] LABS: COVID-19 PCR Negative (Negative); Influenza A PCR Positive (Negative); Influenza B PCR Negative (Negative); RSV PCR Negative (Negative)
[2024-07-22 14:30] LABS: Source Nasopharynx
[2024-07-22] MEDS: Oseltamivir 75 MG CAP PO ×2 (15:09→20:59)
[2024-07-22] MEDS: CEFEPIME 2 GM in Normal Saline 100 ML IVPB (15:10)
[2024-07-22] MEDS: DOXYCYCLINE 100 MG in Normal Saline 100 ML IVPB (15:49)
[2024-07-22 16:28] LABS: Troponin I 15 ng/L (<or=76)
[2024-07-22] MEDS: Ondansetron 4 MG/2 ML VIAL IVP (17:06)
[2024-07-22] MEDS: Acetaminophen 500 MG TAB 1000 MG PO ×2 (18:40→21:46)
--- NOTE | 2024-07-22 18:55 | HPE_ITS ---
Date of service: 07/22/24 Time of Service: 18:55 Assessment and Plan Assessment and plan (1) Pneumonia: Status: Acute Assessment and plan: Albuterol nebs Duo nebs 6h IS [place] Legionella, strep pending BC pending Cefepime and doxycyline x 5d RT consult (2) Influenza A: Status: Acute Assessment and plan: See above Oseltamivir 75 mg BID (3) Atrial fibrillation: Status: Chronic Assessment and plan: Stable - continue home meds History of Present Illness History of Present Illness Chief Complaint: Shortness of breasth Narrative: The patient is a 69-year-old male patient who presented with shortness of breath after several days of being ill. He had a preceding cough and fever at home. The shortness of breath began yesterday. The patient has a history of pneumonia and pneumothorax. His has also been ill. There are no gastrointestinal symptoms, and he denies chest pain or any other complaints. He has a history of atrial fibrillation and is anticoagulated with apixaban, with no missed doses. He has not traveled recently. On examination, the patient appears acutely ill. He had an oxygen saturation of 83% on room air, improving to 92% on 4 liters of nasal cannula. He was received a nebulizer treatment in the ED with improvement. Lung sounds were faint, and his temperature was 38.2?C. A bedside chest x-ray was ordered. The patient had difficulty speaking, using short phrases, and was tachypneic with increased work of breathing. The abdominal exam was benign, with no lower extremity edema, and the calves were soft and nontender. The primary concern was an infectious etiology, particularly considering his fever and the fact that his was also ill. Given the patient's anticoagulation, the suspicion for a pulmonary embolism was low. A viral infection such as COVID-19 or the flu was considered, with bacterial pneumonia also a possibility. The patient had no significant history of respiratory issues and had been well-controlled with his atrial fibrillation medication regimen. The chest x-ray showed concerns for fluid overload, which seemed inconsistent with the patient's clinical presentation. The suspicion was more toward a viral illness, so further imaging was deferred pending lab results. Labs in the ED: WBC 7.46 Hgb 18.3. Venous blood gas pH of 7.43, which was otherwise normal, including lactate levels. The comprehensive metabolic panel revealed a creatinine of 1.4, which was the patient's baseline. The B-type natriuretic peptide level was 593, which was not significantly elevated without a prior comparison. Troponin levels were negative on three tests. The patient tested positive for influenza. Based on the chest x-ray findings and his clinical progression, a CT scan was ordered to further evaluate for possible pneumonia. The CT scan showed several areas of consolidation, suggesting bacterial pneumonia. The patient was started on antiviral medication for influenza as well as cefepime and doxycycline. He had no recent hospitalizations or antibiotic use. The treatment plan was discussed with both the patient and his , who agreed to proceed with the plan. Due to ongoing oxygen requirements, the patient was admitted to the hospital. The patient is a full code. Review of Systems All systems reviewed & are unremarkable except as noted in HPI and below PFSH All Active Problems (Updated 07/22/24 @ 17:29 by MAGGIE PELAEZ) Elevated serum creatinine (Acute) Atrial fibrillation (Chronic) Pneumonia (Acute) Influenza A (Acute) Infected sebaceous cyst of skin (Acute) Internal derangement of left knee (Acute) Injected: 06/05/2019 Social History Smoking/Tobacco Use Status: Never Smoking risk assessment performed?: Yes Alcohol Intake: current Drug use: Never Substance use type: does not use Housing: house Current gender identity: male Do you feel safe at home: Yes Do you feel safe in your relationship?: Yes Meds Allergies and Home Medications Allergies Allergy/AdvReac Type Severity Reaction Status Date / Time adhesive Allergy Severe I blow up Unverified 07/22/24 12:21 just like a ballon Home Medications ?Medication ?Instructions ?Recorded ?Confirmed ?Type amlodipine 10 mg tablet 5 mg PO DAILY 06/19/16 07/22/24 History atorvastatin 20 mg tablet 20 mg PO DAILY 06/19/16 07/22/24 History apixaban 5 mg tablet (Eliquis) 5 mg PO BID 06/05/19 07/22/24 History metoprolol succinate 50 mg 50 mg PO BID 06/05/19 07/22/24 History tablet,extended release 24 hr potassium citrate 10 mEq (1,080 20 meq PO BID 11/26/19 07/22/24 History mg) tablet,extended release doxycycline hyclate 100 mg tablet 100 mg PO BID #14 tabs 03/25/24 07/22/24 Rx tamsulosin 0.4 mg capsule 0.4 mg PO DAILY 03/25/24 07/22/24 History allopurinol 300 mg tablet 300 mg PO DAILY 07/22/24 07/22/24 History hydrochlorothiazide 25 mg tablet 25 mg PO DAILY 07/22/24 07/22/24 History losartan 100 mg tablet 100 mg PO DAILY 07/22/24 07/22/24 History pantoprazole 40 mg tablet,delayed 40 mg PO DAILY 07/22/24 07/22/24 History release Exam Const General: cooperative, healthy appearing, comfortable, no acute distress, well developed and well groomed Nutritional Appearance: well nourished Orientation: alert and awake [facility] Head: normal to inspection, normocephalic and atraumatic Ears: hearing grossly normal bilaterally Face and sinus: normal facial exam, sinuses nontender and face symmetric Mouth: oral mucosae normal, lip normal, tongue normal, oropharynx normal and moist mucous membranes Teeth and gingiva: dentition normal Throat: posterior oropharynx normal, tonsils normal and uvula midline Eyes General: appearance normal, both eyes and all related structures Neck Neck: normal visual inspection, full ROM and no lymphadenopathy Chest Chest: normal inspection of the chest, no crepitus and no tenderness Resp Effort & Inspection: cough, labored, no segmental paradox chest wall movement, tachypneic, no tracheal deviation, tripod positioning and uses accessory muscles Auscultation: clear to auscultation bilaterally, diminished lung sounds, no rales, no rhonchi and no wheezes Cardio Rate: regular rate Rhythm: regular rhythm Heart Sounds: S1 normal and S2 normal Skin General skin exam: no rashes or lesions noted Neuro General: patient alert and patient awake Cognition: normal cognition Speech: speech normal Gait: normal gait Extrem General: normal to inspection, capillary refill normal, no clubbing, cyanosis or edema, no pedal edema and no calf tenderness Results Labs 07/22/24 12:30 07/22/24 12:30 Labs: Laboratory Results - last 24 hr 07/22/24 07/22/24 07/22/24 12:30 13:07 13:40 WBC 7.46 RBC 5.13 Hgb 15.6 Hct 47.0 MCV 92 MCH 30.4 MCHC 33.2 RDW 13.7 Plt Count 173 MPV 9.6 Immature Gran % 0.5 Neutrophils % 81.0 Lymphocytes % 6.8 Monocytes % 10.9 Eosinophils % 0.5 Basophils % 0.3 Nucleated RBC % 0.0 Absolute Neutrophils 6.04 Absolute Lymphocytes 0.51 L Absolute Monocytes 0.81 H Absolute Eosinophils 0.04 Absolute Basophils 0.02 PT 12.1 H INR 1.2 H APTT 35.7 H VBG pH 7.43 H VBG pCO2 42 VBG pO2 41 VBG HCO3 28 VBG Total CO2 24 VBG O2 Saturation 78 VBG Base Excess 3 VBG Lactate 1.3 Sodium 146 H Potassium 4.2 Chloride 108 H Carbon Dioxide 30.4 Anion Gap 7.6 BUN 21 H Creatinine 1.4 H Est GFR (CKD-EPI 2020) 53.74 Glucose 106 Calcium 9.2 Total Bilirubin 1.02 H AST 26 ALT 51 Alkaline Phosphatase 83 Troponin I 14 12 NT-Pro-B Natriuret Pep 593 H Total Protein 7.4 Albumin 3.7 COVID-19 Source Nasopharynx SARS-CoV-2 (PCR) Negative Influenza Type A (PCR) Positive A Influenza Type B (PCR) Negative RSV (PCR) Negative 07/22/24 16:00 WBC RBC Hgb Hct MCV MCH MCHC RDW Plt Count MPV Immature Gran % Neutrophils % Lymphocytes % Monocytes % Eosinophils % Basophils % Nucleated RBC % Absolute Neutrophils Absolute Lymphocytes Absolute Monocytes Absolute Eosinophils Absolute Basophils PT INR APTT VBG pH VBG pCO2 VBG pO2 VBG HCO3 VBG Total CO2 VBG O2 Saturation VBG Base Excess VBG Lactate Sodium Potassium Chloride Carbon Dioxide Anion Gap BUN Creatinine Est GFR (CKD-EPI 2020) Glucose Calcium Total Bilirubin AST ALT Alkaline Phosphatase Troponin I 15 NT-Pro-B Natriuret Pep Total Protein Albumin COVID-19 Source SARS-CoV-2 (PCR) Influenza Type A (PCR) Influenza Type B (PCR) RSV (PCR) Last Vital Signs Temp 39.2 C H 07/22/24 18:02 Pulse 81 07/22/24 18:02 Resp 19 07/22/24 18:02 BP 136/60 07/22/24 18:02 Pulse Ox 95 07/22/24 18:02 Time Spent Time spent with Patient: 55-74 minutes Time was spent: preparing to see the patient(eg.review tests), obtaining and/or reviewing separately otained hiistory, ordering medications,tests, procedures, referring, communicating with other health resident care aide, indepentently interpreting results, counseling the patient and care coordination
[2024-07-22] MEDS: Normal Saline 1,000 ML 100 ML IV (20:06)
[2024-07-22] MEDS: Apixaban 5 MG TAB PO (20:58)
[2024-07-22] MEDS: Doxycycline Hyclate 100 MG CAP PO (20:58)
[2024-07-22] MEDS: Metoprolol CR 50 MG TABCR PO (20:58)
[2024-07-22] MEDS: guaiFENesin 600 MG TABCR PO (20:59)
[2024-07-23] VITALS (12 sets, daily range): BP systolic 112–152; BP diastolic 55–75; PULSE 62–78; RESP 5–22; TEMP 37.3–38.5; O2SAT 83–95
[2024-07-23] MEDS: Albuterol/Ipratropium 3 ML UPD VIAL UPD ×3 (00:10→20:55)
[2024-07-23] MEDS: Normal Saline 1,000 ML 100 ML IV ×2 (06:29→16:30)
[2024-07-23 07:25] LABS: HCT 41.6 % (40.0-50.0); HGB 13.6 g/dL (13.5-17.5); MCH 30.3 pg (27.0-33.0); MCHC 32.7 % (32.0-36.0); MCV 93 fL (80-95); MPV 10.2 fL (8.0-11.0); Platelet Count 145 10^3/uL (130-400); RBC 4.49 10^6/uL (4.36-5.78); RDW 14.1 % (11.8-14.1); RDW-SD 47.8 fL; WBC 6.81 10^3/uL (4.4-10.8)
[2024-07-23 07:56] LABS: Absolute Eosinophil Count 0.07 10^3/uL (0.0-0.7); Absolute Lymphocyte Count 0.89 10^3/uL (1.2-3.4); Absolute Monocyte Count 0.34 10^3/uL (0.1-0.8); Absolute Neutrophil Count 5.52 10^3/uL (1.2-6.7); Atypical Lymphocytes % 3 %; Bands % 1 %; Diff Comment Manual Differential; RBC Morphology Normal
[2024-07-23 08:04] LABS: Anion Gap 9.5 mmol/L (3-11); BUN 24 mg/dL (7-18); CO2 25.5 mmol/L (21.0-32.0); CREATININE 1.6 mg/dL (0.70-1.30); Calcium 8.6 mg/dL (8.5-10.1); Chloride 109 mmol/L (98-107); Estimated GFR 45.78 (mL/min/1.73m2); Glucose 105 mg/dL (74-106); Magnesium 1.7 mg/dL (1.8-2.4); Potassium 3.8 mmol/L (3.5-5.1); Sodium 144 mmol/L (136-145)
--- NOTE | 2024-07-23 08:28 | RESPIRATORY ---
RT Initial Evalutation/Assessment Start: 07/22/24 19:08 Freq: .q shift and prn Status: Active Protocol: Document 07/23/24 08:24 MF (Rec: 07/23/24 08:28 [id number]) RT Assessment Smoking History Smoking/Tobacco Use Status Never OXYGEN HISTORY: CPAP Can use home machine Yes BIPAP Can you home machine No Trilogy/AVAPS Can use home machine No Current Respiratory Symptoms Current Respiratory Symptoms Cough,Sputum production Respiratory Breath Sounds Breath Sounds Any abnormal sounds, decreased breath sounds Pulse Rate <100 Respiratory Rate <18 Shortness of Breath At rest Respiratory Therapy Score Total 3
--- NOTE | 2024-07-23 09:12 | PDOC.CMIN ---
Date of service: 07/23/24 Time of Service: 09:14 Care Management Initial Assmt Initial Assessment Reason for Hospitalization: Influenza, Pneumonia Functional Status/Living Situation Patient Presentation: Roque is being closely monitored and treated for pneumonia and flu A. He is accompanied by his Natasha. He is currently 92% on 3 L NC and does not have O2 requirements at baseline. Julio is fully independent. His PCP is located in [facility] where he is originally from and he is interested in finding a local provider. CM will provide pt will a list of local PCP to help him with his search. Town of Residence: 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 Activities of Daily Living (ADLs): Independent Medications Medication Management: No Issues/Barriers identified Advance Directives Advance Directives: Do you have an Advance Directive: N 11/01/16 11:07 AD On File at [facility]: N 06/19/16 21:33 Date Asked 07/22/24 07/22/24 12:34 AD Date Reviewed 07/18/24 07/18/24 14:59 COLST On File at [facility] COLST Date Scanned Code Status Resuscitation Status Full Code Insurance Coverage/Financial Issues Insurance: /BS of [place] Medicare Part A & B Care Team Visit Care Team Role Provider Type Brent Major Primary Care Provider NON-[facility] STAFF PHYSICIAN YOU Schwartz Emergency Provider [facility] [facility] REFEREE Magdaleno Monsivais MD Admit Provider [facility] STAFF PHYSICIAN Attending Provider Discharge Potential Discharge Needs: PCP F/U Appt (T-Doc follow up, No local PCP) Anticipated Barriers to Discharge: None Identified Patient/Family Education Needs: Review discharge instructions, discuss Ask Me Three Transportation: Private vehicle Plan: Roque is being treated for pneumonia and Flu A and requires IV ABX, Tamiflu and supplimental O2. He is planning on discharging home when medically ready. will transport. T-doc follow up will be offered, no local PCP. Pt wants to establish care locally. No new services are anticipated at this time. CM will follow. Social Determinants of Health Screening Social Determinants of Health last assessed: 07/23/24 Will the Patient Participate in the Screening?: Yes Do you worry about having a steady place to live?: no Problems where you live: no known problems In the past 12 months, have you had to go without electric, gas, oil or water in your home?: no Have you or anyone in your house had to go without enough food to eat?: no Has lack of transportation kept you from medical appointments or from doing things needed for daily living?: no Has anyone in your life made you feel unsafe or unsupported?: no How hard is it for you to pay for the very basics like food, housing, medical care, and heating? Would you say it is:: Not hard at all Do you want help finding or keeping work or a job?: I do not need or want help If for any reason you need help with day-to-day activities such as bathing, preparing meals, shopping, managing finances, etc., do you get the help you need?: I don?t need any help How often do you feel lonely or isolated from those around you?: Never Do you speak a language other than Bermudian at home?: No Does the patient want assistance with any of the above?: No PFSH All Active Problems (Updated 07/22/24 @ 17:29 by MAGGIE PELAEZ) Elevated serum creatinine (Acute) Atrial fibrillation (Chronic) Pneumonia (Acute) Influenza A (Acute) Infected sebaceous cyst of skin (Acute) Internal derangement of left knee (Acute) Injected: 06/05/2019 Social History Smoking/Tobacco Use Status: Never Smoking risk assessment performed?: Yes Alcohol Intake: current Drug use: Never Substance use type: does not use Housing: house Current gender identity: male Do you feel safe at home: Yes Do you feel safe in your relationship?: Yes
[2024-07-23] MEDS: Tamsulosin 0.4 MG CAPCR PO (09:40)
[2024-07-23] MEDS: amLODIPine 10 MG TAB 5 MG PO (09:40)
[2024-07-23] MEDS: hydroCHLOROthiazide 25 MG TAB PO (09:40)
[2024-07-23] MEDS: Apixaban 5 MG TAB PO ×2 (09:40→20:29)
[2024-07-23] MEDS: Losartan 50 MG TAB 100 MG PO (09:43)
[2024-07-23] MEDS: Metoprolol CR 50 MG TABCR PO ×2 (09:43→20:29)
[2024-07-23] MEDS: Allopurinol 300 MG TAB PO (09:43)
[2024-07-23] MEDS: guaiFENesin 600 MG TABCR PO ×2 (09:43→20:29)
[2024-07-23] MEDS: Atorvastatin 20 MG TAB PO (09:43)
[2024-07-23] MEDS: Oseltamivir 75 MG CAP PO ×2 (09:43→20:29)
[2024-07-23] MEDS: Omeprazole 20 MG CAPCR 40 MG PO (09:44)
[2024-07-23] MEDS: Normal Saline Flush 10 ML SYR IVP (09:44)
[2024-07-23] MEDS: Doxycycline Hyclate 100 MG CAP PO ×2 (09:44→20:29)
[2024-07-23] MEDS: Acetaminophen 500 MG TAB 1000 MG PO ×2 (12:25→20:46)
[2024-07-23 18:10] LABS: Legionella Ag Detection Urine Negative (Negative)
--- NOTE | 2024-07-23 20:08 | PGE_ITS ---
Date of Service Date of service: 07/23/24 Time of Service: 12:00 Assessment and Plan Assessment and plan (1) Pneumonia: Status: Acute Assessment and plan: Continue Albuterol nebs Continue Duo nebs 6h Continue IS Continue Guaifenesen Legionella, strep pending BC pending Cefepime and doxycyline x 5d RT consult WBC 6.81 (2) Influenza A: Status: Acute Assessment and plan: See above Oseltamivir 75 mg BID (3) Atrial fibrillation: Status: Chronic Assessment and plan: Stable - continue home meds Subjective Subjective Patient reports: no new complaints and feels better Exam Const General: cooperative, healthy appearing, comfortable, no acute distress, well developed and well groomed Nutritional Appearance: well nourished Orientation: alert and awake [facility] Head: normal to inspection, normocephalic and atraumatic Ears: hearing grossly normal bilaterally Face and sinus: normal facial exam, sinuses nontender and face symmetric Mouth: oral mucosae normal, lip normal, tongue normal, oropharynx normal and mo ist mucous membranes Teeth and gingiva: dentition normal Throat: posterior oropharynx normal, tonsils normal and uvula midline Eyes General: appearance normal, both eyes and all related structures Neck Neck: normal visual inspection, full ROM and no lymphadenopathy Chest Chest: normal inspection of the chest, no crepitus and no tenderness Resp Effort & Inspection: cough, labored, no segmental paradox chest wall movement, tachypneic, no tracheal deviation, tripod positioning and uses accessory muscles Auscultation: clear to auscultation bilaterally, diminished lung sounds, no rales, no rhonchi and no wheezes Cardio Rate: regular rate Rhythm: regular rhythm Heart Sounds: S1 normal and S2 normal Skin General skin exam: no rashes or lesions noted Neuro General: patient alert and patient awake Cognition: normal cognition Speech: speech normal Gait: normal gait Extrem General: normal to inspection, capillary refill normal, no clubbing, cyanosis or edema, no pedal edema and no calf tenderness Objective Last Vital Signs Temp 37.3 C 07/23/24 16:42 Pulse 62 07/23/24 16:42 Resp 18 07/23/24 16:42 BP 118/58 L 07/23/24 16:42 Pulse Ox 92 07/23/24 16:42 Laboratory Results - last 24 hr 07/23/24 06:34 WBC 6.81 RBC 4.49 Hgb 13.6 D Hct 41.6 MCV 93 MCH 30.3 MCHC 32.7 RDW 14.1 Plt Count 145 MPV 10.2 Immature Gran % 0.0 Neutrophils % 80.0 Band Neutrophils % 1 Lymphocytes % 10.0 Atypical Lymphs % 3 Monocytes % 5.0 Eosinophils % 1.0 Basophils % 0.0 Nucleated RBC % 0.0 Absolute Neutrophils 5.52 Absolute Lymphocytes 0.89 L Absolute Monocytes 0.34 Absolute Eosinophils 0.07 Absolute Basophils 0.00 RBC Morphology Normal Sodium 144 Potassium 3.8 Chloride 109 H Carbon Dioxide 25.5 Anion Gap 9.5 BUN 24 H Creatinine 1.6 H Est GFR (CKD-EPI 2020) 45.78 Glucose 105 Calcium 8.6 Magnesium 1.7 L Time Spent with Patient Time Spent with Patient: 25-34 minutes Time was spent: preparing to see the patient(eg.review tests), ordering medications,tests, procedures, referring, communicating with other health personal care service provider, indepentently interpreting results, counseling the patient and care coordination
[2024-07-23] MEDS: Benzonatate 100 MG CAP PO ×2 (20:46)
[2024-07-23 21:10] LABS: BE (Venous) 1 mmol/L (-2-3); HCO3 (Venous) 25 mmol/L (23-28); O2 Sat (Venous) 88 %; TCO2 (Venous) 22 mmol/L (24-29); pCO2 (Venous) 41 mmHg (41-51); pO2 (Venous) 52 mmHg
[2024-07-23 21:11] LABS: Lactate 0.8 mmol/L (<or=2.0)
[2024-07-24] VITALS (13 sets, daily range): BP systolic 109–140; BP diastolic 49–73; PULSE 70–83; RESP 3–22; TEMP 37.3–37.6; O2SAT 92–95
--- NOTE | 2024-07-24 | DI.RAD_ITS ---
Exam(s) XR PORTABLE CHEST AP EXAM: XR PORTABLE CHEST AP CLINICAL HISTORY: Deteriorating resp status - pna and flu TECHNIQUE: 2D digital imaging was performed of the chest. One image was obtained. An AP view was ob tained. COMPARISON: CT CT CHEST PE CTA from 07/22/2024 CR XR PORTABLE CHEST AP from 07/22/2024 FINDINGS: MEDIASTINUM: Normal. HEART: Normal. PULMONARY VASCULATURE: Normal. LUNGS: There has been progression of the infiltrates seen in the right upper lobe. Air bronchograms are seen. There may also be an infiltrate in the left lower lobe. PLEURAL SPACE: No pleural effusion or pneumothorax. BONE:Within normal limits for the patient's age. OTHER FINDINGS:There is a cardiac monitoring device seen overlying the left chest wall. IMPRESSION: Interval worsening of the right upper lobe infiltrate. DATA REPOSITORY: RADIATION DOSE DELIVERED:
[2024-07-24] MEDS: Normal Saline 1,000 ML 100 ML IV (01:27)
[2024-07-24 07:24] LABS: Abs Immature Grans 0.03 10^3/uL (0.0-0.06); Absolute Basophil Count 0.03 10^3/uL (0.0-0.2); Absolute Eosinophil Count 0.01 10^3/uL (0.0-0.7); Absolute Lymphocyte Count 0.82 10^3/uL (1.2-3.4); Absolute Monocyte Count 0.43 10^3/uL (0.1-0.8); Absolute Neutrophil Count 3.85 10^3/uL (1.2-6.7); Basophils % 0.6 %; Eosinophils % 0.2 %; HCT 41.5 % (40.0-50.0); Immature Grans % 0.6 %; Lymphocytes % 15.9 %; MCH 30.3 pg (27.0-33.0); MCHC 33.7 % (32.0-36.0); MCV 90 fL (80-95); MPV 10.6 fL (8.0-11.0); Monocytes % 8.3 %; Neutrophils % 74.4 %; Platelet Count 132 10^3/uL (130-400); RBC 4.62 10^6/uL (4.36-5.78); RDW 14.1 % (11.8-14.1); RDW-SD 46.4 fL; WBC 5.17 10^3/uL (4.4-10.8)
[2024-07-24 07:42] LABS: Anion Gap 7.2 mmol/L (3-11); BUN 24 mg/dL (7-18); CO2 26.8 mmol/L (21.0-32.0); CREATININE 1.4 mg/dL (0.70-1.30); Calcium 8.6 mg/dL (8.5-10.1); Chloride 109 mmol/L (98-107); Estimated GFR 53.74 (mL/min/1.73m2); Glucose 99 mg/dL (74-106); Magnesium 1.6 mg/dL (1.8-2.4); Potassium 3.5 mmol/L (3.5-5.1); Sodium 143 mmol/L (136-145)
--- NOTE | 2024-07-24 08:13 | RESPIRATORY ---
RT Initial Evalutation/Assessment Start: 07/22/24 19:08 Freq: .q shift and prn Status: Active Protocol: Document 07/24/24 08:06 (Rec: 07/24/24 08:13 [id number]) RT Assessment Smoking History Smoking/Tobacco Use Status Never Tobacco: How many years used 0 Packs per Day 0 Cigarettes per Day 0 Years smoked 0 Smoking packs per day 0 OXYGEN HISTORY: Supplemental O2 At Rest 0 With Exertion 0 CPAP Settings Pt unsure of settings. DreamStation Advanced 2 Auto CPAP Can use home machine Yes: Pt unsure of DME and CPAP settings BIPAP Can you home machine N/A Trilogy/AVAPS Can use home machine N/A DME/Compliance DME Pt unsure of DME Compliance Normally wears CPAP every night with no issues. No O2 bleed in at baseline. Current Respiratory Symptoms Current Respiratory Symptoms Cough,Shortness of breath, Sputum production Activity Activity Level Pt normally able to perform ADLs with no limitations. Respiratory Breath Sounds Breath Sounds Faint wheezing or rhonci, decreased sounds throughout Pulse Rate <100 Respiratory Rate 18-25 Shortness of Breath At rest Respiratory Therapy Score Total 5 Assessment and Plan RT Treatment Protocol Bronchodilator Aerosol Therapy Protocol,Lung Expansion Therapy Protocol,Bronchial Hygiene Therapy Protocol Note Mild score of 5. PT would benefit from scheduled bronchodilators, Vibra-PEP acapella device, incentive spirometry. Pt normally uses no O2 at baseline and is currently requiring 6L via HFNC at rest.
[2024-07-24] MEDS: Allopurinol 300 MG TAB PO (08:24)
[2024-07-24] MEDS: amLODIPine 10 MG TAB 5 MG PO (08:25)
[2024-07-24] MEDS: Apixaban 5 MG TAB PO ×2 (08:28→19:39)
[2024-07-24] MEDS: Atorvastatin 20 MG TAB PO (08:30)
[2024-07-24] MEDS: Doxycycline Hyclate 100 MG CAP PO ×2 (08:31→19:39)
[2024-07-24] MEDS: guaiFENesin 600 MG TABCR PO ×2 (08:32→19:39)
[2024-07-24] MEDS: Losartan 50 MG TAB 100 MG PO (08:34)
[2024-07-24] MEDS: hydroCHLOROthiazide 25 MG TAB PO (08:35)
[2024-07-24] MEDS: Metoprolol CR 50 MG TABCR PO ×2 (08:36→19:39)
[2024-07-24] MEDS: Normal Saline Flush 10 ML SYR IVP ×2 (08:37→19:39)
[2024-07-24] MEDS: Omeprazole 20 MG CAPCR 40 MG PO (08:40)
[2024-07-24] MEDS: Tamsulosin 0.4 MG CAPCR PO (08:41)
[2024-07-24] MEDS: Oseltamivir 75 MG CAP PO ×2 (09:47→19:39)
[2024-07-24] MEDS: MAGNESIUM SULFATE 2 GM/50 ML BAG IV_INF (11:49)
[2024-07-24] MEDS: Albuterol/Ipratropium 3 ML UPD VIAL UPD ×3 (12:08→23:55)
[2024-07-24] MEDS: CEFEPIME 2 GM in Normal Saline 100 ML IVPB ×2 (17:08→23:49)
--- NOTE | 2024-07-24 17:13 | PGE_ITS ---
Date of Service Date of service: 07/24/24 Time of Service: 17:13 Assessment and Plan Assessment and plan (1) Pneumonia: Status: Acute Assessment and plan: Continue Albuterol nebs Continue Duo nebs 6h Continue IS Continue Guaifenesen Legionella, strep pending BC pending Cefepime and doxycyline x 5d RT consult WBC 5.17 (2) Influenza A: Status: Acute Assessment and plan: See above Oseltamivir 75 mg BID (3) Atrial fibrillation: Status: Chronic Assessment and plan: Stable - continue home meds Subjective Subjective Patient reports: no new complaints, tolerating liquids well, tolerating a regular diet, voiding w/o difficulty, bowel movement, nausea, shortness of breath (with exertion) and fever; denies feels better, diarrhea or vomiting Interval history since last seen: Awake, alert, sitting in the chair in the hospital room, conversant, pleasant. States he is not feeling well, nothing new however. Objective Last Vital Signs Temp 37.5 C 07/24/24 15:35 Pulse 73 07/24/24 15:35 Resp 19 07/24/24 15:35 BP 116/68 07/24/24 15:35 Pulse Ox 93 07/24/24 15:35 Laboratory Results - last 24 hr 07/23/24 07/23/24 07/24/24 01:33 21:05 06:18 WBC 5.17 RBC 4.62 Hgb 14.0 Hct 41.5 MCV 90 MCH 30.3 MCHC 33.7 RDW 14.1 Plt Count 132 MPV 10.6 Immature Gran % 0.6 Neutrophils % 74.4 Lymphocytes % 15.9 Monocytes % 8.3 Eosinophils % 0.2 Basophils % 0.6 Nucleated RBC % 0.0 Absolute Neutrophils 3.85 Absolute Lymphocytes 0.82 L Absolute Monocytes 0.43 Absolute Eosinophils 0.01 Absolute Basophils 0.03 VBG pH 7.40 VBG pCO2 41 VBG pO2 52 VBG HCO3 25 VBG Total CO2 22 L VBG O2 Saturation 88 VBG Base Excess 1 VBG Lactate 0.8 Sodium 143 Potassium 3.5 Chloride 109 H Carbon Dioxide 26.8 Anion Gap 7.2 BUN 24 H Creatinine 1.4 H Est GFR (CKD-EPI 2020) 53.74 Glucose 99 Calcium 8.6 Magnesium 1.6 L Urine Legionella Ag Negative Time Spent with Patient Time Spent with Patient: 35-49 minutes Time was spent: preparing to see the patient(eg.review tests), ordering medications,tests, procedures, referring, communicating with other health patient care provider, indepentently interpreting results, counseling the patient and care coordination
--- NOTE | 2024-07-24 18:27 | PDOC.CMPRO ---
Date of service: 07/24/24 Time of Service: 15:00 Care Management Progress Note Progress Note Text Progress Note Text: Roque was sitting up in the bedside chair when CM met with him today. He was very pleasant. He was noted to have a very wet cough. He was also still on 6L of nc O2. Julio stated that he does not believe that he will require any services on discharge. Discharge Potential Discharge Needs: PCP F/U Appt Anticipated Barriers to Discharge: Medical Status Patient/Family Education Needs: Review discharge instructions, discuss Ask Me Three Transportation: Private vehicle Plan: Anticipate that Julio will be discharged home, once medically ready, with no new services. He will f/u with his pcp, continue per his plan of care, and transport home in a private vehicle with his . CM will continue to follow and update the plan as needed. Social Determinants of Health Screening Social Determinants of Health last assessed: 07/24/24 Will the Patient Participate in the Screening?: Yes Do you worry about having a steady place to live?: no Problems where you live: no known problems In the past 12 months, have you had to go without electric, gas, oil or water in your home?: no Have you or anyone in your house had to go without enough food to eat?: no Has lack of transportation kept you from medical appointments or from doing things needed for daily living?: no Has anyone in your life made you feel unsafe or unsupported?: no How hard is it for you to pay for the very basics like food, housing, medical care, and heating? Would you say it is:: Not hard at all Do you want help finding or keeping work or a job?: I do not need or want help If for any reason you need help with day-to-day activities such as bathing, preparing meals, shopping, managing finances, etc., do you get the help you need?: I don?t need any help How often do you feel lonely or isolated from those around you?: Never Do you speak a language other than Armenian at home?: No Does the patient want assistance with any of the above?: No
[2024-07-24] MEDS: Potassium Citrate 1080 MG TABCR 2160 MG PO (19:39)
[2024-07-24] MEDS: Acetaminophen 500 MG TAB 1000 MG PO (21:48)
[2024-07-24] MEDS: Benzonatate 100 MG CAP PO (21:48)
[2024-07-24 23:26] LABS: Streptococcus Pneumoniae Ag, U Negative (Negative)
[2024-07-25] VITALS (10 sets, daily range): BP systolic 105–142; BP diastolic 60–89; PULSE 69–79; RESP 8–24; TEMP 37.3–37.6; O2SAT 92–99
[2024-07-25] MEDS: Albuterol/Ipratropium 3 ML UPD VIAL UPD ×3 (05:50→17:37)
[2024-07-25 06:05] LABS: Abs Immature Grans 0.02 10^3/uL (0.0-0.06); Absolute Basophil Count 0.01 10^3/uL (0.0-0.2); Absolute Eosinophil Count 0.01 10^3/uL (0.0-0.7); Absolute Lymphocyte Count 0.82 10^3/uL (1.2-3.4); Absolute Monocyte Count 0.63 10^3/uL (0.1-0.8); Absolute Neutrophil Count 2.99 10^3/uL (1.2-6.7); Basophils % 0.2 %; Eosinophils % 0.2 %; HGB 13.6 g/dL (13.5-17.5); Immature Grans % 0.4 %; Lymphocytes % 18.3 %; MCH 30.3 pg (27.0-33.0); MCV 89 fL (80-95); MPV 10.3 fL (8.0-11.0); Monocytes % 14.1 %; Neutrophils % 66.8 %; Platelet Count 145 10^3/uL (130-400); RBC 4.49 10^6/uL (4.36-5.78); RDW 13.9 % (11.8-14.1); RDW-SD 45.1 fL; WBC 4.48 10^3/uL (4.4-10.8)
[2024-07-25 06:20] LABS: Anion Gap 5.1 mmol/L (3-11); BUN 20 mg/dL (7-18); CO2 29.9 mmol/L (21.0-32.0); CREATININE 1.4 mg/dL (0.70-1.30); Calcium 8.5 mg/dL (8.5-10.1); Chloride 109 mmol/L (98-107); Estimated GFR 53.74 (mL/min/1.73m2); Glucose 131 mg/dL (74-106); Magnesium 1.9 mg/dL (1.8-2.4); Potassium 3.1 mmol/L (3.5-5.1); Sodium 144 mmol/L (136-145)
[2024-07-25] MEDS: Potassium Citrate 1080 MG TABCR 2160 MG PO ×2 (08:23→20:04)
[2024-07-25] MEDS: Doxycycline Hyclate 100 MG CAP PO ×2 (08:23→20:04)
[2024-07-25] MEDS: Tamsulosin 0.4 MG CAPCR PO (08:23)
[2024-07-25] MEDS: Losartan 50 MG TAB 100 MG PO (08:23)
[2024-07-25] MEDS: Omeprazole 20 MG CAPCR 40 MG PO (08:23)
[2024-07-25] MEDS: Oseltamivir 75 MG CAP PO ×2 (08:24→20:04)
[2024-07-25] MEDS: amLODIPine 10 MG TAB 5 MG PO (08:24)
[2024-07-25] MEDS: Metoprolol CR 50 MG TABCR PO ×2 (08:24→20:04)
[2024-07-25] MEDS: guaiFENesin 600 MG TABCR PO ×2 (08:24→20:04)
[2024-07-25] MEDS: hydroCHLOROthiazide 25 MG TAB PO (08:24)
[2024-07-25] MEDS: Allopurinol 300 MG TAB PO (08:24)
[2024-07-25] MEDS: Atorvastatin 20 MG TAB PO (08:24)
[2024-07-25] MEDS: Normal Saline Flush 10 ML SYR IVP ×3 (08:25→20:05)
[2024-07-25] MEDS: CEFEPIME 2 GM in Normal Saline 100 ML IVPB ×2 (08:25→16:33)
[2024-07-25] MEDS: Apixaban 5 MG TAB PO ×2 (08:25→20:10)
--- NOTE | 2024-07-25 09:33 | CMPROGNOTE_ITS ---
Date of service: 07/25/24 Time of Service: 09:33 Care Management Progress Note Progress Note Text Progress Note Text: Roque is being closely monitored and treated for pneumonia and flu A. He is not sleeping well at night and Melatonin is being added for tonight. No changes to discharge plan. His O2 is being weaned as tolerated, still requiring 4L NC. Discharge Potential Discharge Needs: PCP F/U Appt Anticipated Barriers to Discharge: Medical Status Patient/Family Education Needs: Review discharge instructions, discuss Ask Me Three Transportation: Private vehicle Plan: Anticipate that Julio will be discharged home, once medically ready, with no new services. He will f/u with his pcp, continue per his plan of care, and transport home in a private vehicle with his . CM will continue to follow and update the plan as needed. Social Determinants of Health Screening Social Determinants of Health last assessed: 07/25/24 Will the Patient Participate in the Screening?: Yes Do you worry about having a steady place to live?: no Problems where you live: no known problems In the past 12 months, have you had to go without electric, gas, oil or water in your home?: no Have you or anyone in your house had to go without enough food to eat?: no Has lack of transportation kept you from medical appointments or from doing things needed for daily living?: no Has anyone in your life made you feel unsafe or unsupported?: no How hard is it for you to pay for the very basics like food, housing, medical care, and heating? Would you say it is:: Not hard at all Do you want help finding or keeping work or a job?: I do not need or want help If for any reason you need help with day-to-day activities such as bathing, preparing meals, shopping, managing finances, etc., do you get the help you need?: I don?t need any help How often do you feel lonely or isolated from those around you?: Never Do you speak a language other than Marshallese at home?: No Does the patient want assistance with any of the above?: No
--- NOTE | 2024-07-25 14:36 | CHAPLAIN ---
Roque was sitting up in the chair when I visited. He said he's very tired as he hasn't slept well. This room was extra warm for the past few days, so that made it uncomfortable for him. I explained my role and offered support. Roque's , Natasha, has been in to visit and Roque said he is in touch with family by phone as well.
--- NOTE | 2024-07-25 18:48 | PGE_ITS ---
Date of Service Date of service: 07/25/24 Time of Service: 17:30 Assessment and Plan Assessment and plan (1) Pneumonia: Status: Acute Assessment and plan: Will continue nebs as needed and scheduled Ongoing I-S, guaifenesin Legionella and strep pneumo negative Blood cultures are negative No fever since 07/23/2024 at 2330 Continue cefepime IV consider transitioning to cefpodoxime on d/c Continue doxycycline Wean O2 as tolerated -consider d/c home on O2 Ongoing RT consult Physical therapy consult for safe discharge CBC in AM (2) Influenza A: Status: Acute Assessment and plan: As above Ongoing Oseltamivir 75 mg BID Droplet precautions (3) Atrial fibrillation: Status: Chronic Assessment and plan: Stable - continue home meds regimen, including Eliquis Discussed with Dr. Monsivais Subjective Subjective Patient reports: feels better, tolerating liquids well, tolerating a regular diet, voiding w/o difficulty, bowel movement and shortness of breath; denies nausea, vomiting or fever Exam Narrative Exam Narrative: Constitutional The patient is sitting in chair without acute distress Neuro:alert and oriented to self, person, place time and situation. No ne urological focal deficit Resp:left sided exp. wheezing,coarse breath sounds L> R, labored breathing w speech on O2 at 4l/min, Cardio: regular rhythm, S1, S2, no murmur GI: Abdomen is not distended, soft and non tender, bowel sounds are present Integumentary: No skin lesions or rash Extremities: strength 5/5 to bilateral lower and upper extremities Psych: RASS 0, congruent mood and normal affect. Objective Last Vital Signs Temp 37.3 C 07/25/24 15:19 Pulse 74 07/25/24 17:37 Resp 24 07/25/24 15:19 BP 127/67 07/25/24 15:19 Pulse Ox 93 07/25/24 17:37 Laboratory Results - last 24 hr 07/22/24 07/25/24 22:00 05:43 WBC 4.48 RBC 4.49 Hgb 13.6 Hct 40.0 MCV 89 MCH 30.3 MCHC 34.0 RDW 13.9 Plt Count 145 MPV 10.3 Immature Gran % 0.4 Neutrophils % 66.8 Lymphocytes % 18.3 Monocytes % 14.1 Eosinophils % 0.2 Basophils % 0.2 Nucleated RBC % 0.0 Absolute Neutrophils 2.99 Absolute Lymphocytes 0.82 L Absolute Monocytes 0.63 Absolute Eosinophils 0.01 Absolute Basophils 0.01 Sodium 144 Potassium 3.1 L Chloride 109 H Carbon Dioxide 29.9 Anion Gap 5.1 BUN 20 H Creatinine 1.4 H Est GFR (CKD-EPI 2020) 53.74 Glucose 131 H Calcium 8.5 Magnesium 1.9 Ur Strep pneumoniae Ag Negative Time Spent with Patient Time Spent with Patient: >50 minutes Time was spent: preparing to see the patient(eg.review tests), obtaining and/or reviewing separately otained hiistory, ordering medications,tests, procedures, referring, communicating with other health career development coordinator/teacher, indepentently interpreting results, counseling the patient and care coordination
[2024-07-25] MEDS: Melatonin 3 MG TAB PO (20:04)
[2024-07-26] VITALS (12 sets, daily range): BP systolic 126–154; BP diastolic 66–99; PULSE 62–75; RESP 5–24; TEMP 36.7–38; O2SAT 91–98
[2024-07-26] MEDS: Albuterol/Ipratropium 3 ML UPD VIAL UPD ×4 (00:45→19:55)
[2024-07-26] MEDS: CEFEPIME 2 GM in Normal Saline 100 ML IVPB ×3 (00:45→16:02)
[2024-07-26] MEDS: LORazepam 0.5 MG TAB PO ×2 (00:46→21:07)
[2024-07-26] MEDS: Normal Saline Flush 10 ML SYR IVP ×6 (00:46→21:07)
[2024-07-26] MEDS: Benzonatate 100 MG CAP PO ×2 (00:46→21:08)
[2024-07-26] MEDS: Ondansetron 4 MG/2 ML VIAL IVP (01:36)
[2024-07-26 07:42] LABS: Abs Immature Grans 0.02 10^3/uL (0.0-0.06); Absolute Basophil Count 0.02 10^3/uL (0.0-0.2); Absolute Eosinophil Count 0.03 10^3/uL (0.0-0.7); Absolute Lymphocyte Count 0.91 10^3/uL (1.2-3.4); Absolute Monocyte Count 0.61 10^3/uL (0.1-0.8); Absolute Neutrophil Count 2.87 10^3/uL (1.2-6.7); Basophils % 0.4 %; Eosinophils % 0.7 %; HCT 40.9 % (40.0-50.0); HGB 13.5 g/dL (13.5-17.5); Immature Grans % 0.4 %; Lymphocytes % 20.4 %; MCH 30.3 pg (27.0-33.0); MCV 92 fL (80-95); MPV 10.3 fL (8.0-11.0); Monocytes % 13.7 %; Neutrophils % 64.4 %; Platelet Count 148 10^3/uL (130-400); RBC 4.46 10^6/uL (4.36-5.78); RDW 13.9 % (11.8-14.1); RDW-SD 47.7 fL; WBC 4.46 10^3/uL (4.4-10.8)
[2024-07-26 07:59] LABS: Anion Gap 8.7 mmol/L (3-11); BUN 23 mg/dL (7-18); CO2 30.3 mmol/L (21.0-32.0); CREATININE 1.4 mg/dL (0.70-1.30); Chloride 107 mmol/L (98-107); Estimated GFR 53.74 (mL/min/1.73m2); Glucose 112 mg/dL (74-106); Magnesium 1.9 mg/dL (1.8-2.4); Potassium 3.7 mmol/L (3.5-5.1); Sodium 146 mmol/L (136-145)
[2024-07-26] MEDS: amLODIPine 10 MG TAB 5 MG PO (08:07)
[2024-07-26] MEDS: Potassium Citrate 1080 MG TABCR 2160 MG PO ×2 (08:07→21:08)
[2024-07-26] MEDS: Omeprazole 20 MG CAPCR 40 MG PO (08:08)
[2024-07-26] MEDS: guaiFENesin 600 MG TABCR PO ×2 (08:08→21:08)
[2024-07-26] MEDS: Losartan 50 MG TAB 100 MG PO (08:08)
[2024-07-26] MEDS: Allopurinol 300 MG TAB PO (08:08)
[2024-07-26] MEDS: hydroCHLOROthiazide 25 MG TAB PO (08:08)
[2024-07-26] MEDS: Metoprolol CR 50 MG TABCR PO ×2 (08:08→21:07)
[2024-07-26] MEDS: Atorvastatin 20 MG TAB PO (08:08)
[2024-07-26] MEDS: Tamsulosin 0.4 MG CAPCR PO (08:08)
[2024-07-26] MEDS: Oseltamivir 75 MG CAP PO ×2 (08:08→21:08)
[2024-07-26] MEDS: Doxycycline Hyclate 100 MG CAP PO ×2 (08:08→21:08)
[2024-07-26] MEDS: Apixaban 5 MG TAB PO ×2 (08:08→21:08)
--- NOTE | 2024-07-26 09:21 | PT.INIE ---
PT Notes Visit Reasons: Flu, left lobe pneumonia, acute hypoxic respirator Physical Therapy Inpatient Initial Evaluation Date: 07/26/2024 Referring Doctor: Dacia Ornelas NP PT Orders: PT CONSULT: Safety Consult for D/C Precautions: Fall. Standard. Activity as tolerated. Patient Profile/Admitting Diagnosis: Patient is a 69-year-old male admitted for management of pneumonia, influenza A, and atrial fibrillation. PMHX: All Active Problems (Updated 07/22/24 @ 17:29 by MAGGIE PELAEZ) Elevated serum creatinine (Acute) Atrial fibrillation (Chronic) Pneumonia (Acute) Influenza A (Acute) Infected sebaceous cyst of skin (Acute) Internal derangement of left knee (Acute) Injected: 06/05/2019 Social History/Home Situation: Lives alone with in a private home with 3 steps to enter. Equipment Owned/DME: None Subjective: Patient agreeable to today's evaluation. Happy to have walked in the hallway and have coughed afterwards. Objective: General Observation: Patient seated on bedside chair. On oxygen supplementation via NC. Mental Status: Alert and oriented as to person, place, time, and purpose. Able to pay attention, focus, and respond appropriately. Pain: None reported Vital Signs: SaO2 lowest at 89% on 3 L ROM: Right Upper Extremity: Shoulder Flexion WFL. Shoulder abduction WFL. Elbow flexion WFL. Wrist flexion WFL. Functional opening and closing of hand WFL. Left Upper Extremity: Shoulder Flexion WFL. Shoulder abduction WFL. Elbow flexion WFL. Wrist flexion WFL. Functional opening and closing of hand WFL. Right Lower Extremity: Hip flexion WFL. Hip abduction WFL. Knee flexion WFL. Ankle dorsiflexion WFL. Ankle plantarflexion WFL. Left Lower Extremity: Hip flexion WFL. Hip abduction WFL. Knee flexion WFL. Ankle dorsiflexion WFL. Ankle plantarflexion WFL. Strength: Right Upper Extremity: Shoulder flexors 4/5. Shoulder abductors 4/5. Elbow flexors 5/5. Elbow extensors 5/5. Eye Clinic Manager strong. Left Upper Extremity: Shoulder flexors 4/5. Shoulder abductors 4/5. Elbow flexors 5/5. Elbow extensors 5/5. Eye Clinic Manager strong. Right Lower Extremity: Hip flexors 4/5. Hip abductors 4/5. Knee flexors 5/5. Knee extensors 4/5. Ankle dorsiflexors 5/5. Ankle plantarflexors 5/5. Left Lower Extremity: Hip flexors 4/5. Hip abductors 4/5. Knee flexors 5/5. Knee extensors 4/5. Ankle dorsiflexors 5/5. Ankle plantarflexors 5/5. Bed Mobility/Transfers: Rolling independent Supine to sit independent Sit to supine independent Sit to stand independent Stand to sit independent Bed to bedside commode independent Bedside commode to bed independent Bed to reclining chair independent Reclining chair to bed independent Gait: 300 feet without an assistive device. No path deviation. Minimal SOB that subsided with short standing rests. SaO2 lowest of 89% on 3 L via NC. Balance: Static Sitting: Normal Dynamic Sitting: Normal Static Standing: Good Dynamic Standing: Good 4-Stage Balance test: Feet together 10 seconds Semi-tandem 10 seconds Full tandem <10 seconds One-legged stance <10 seconds Special Tests: Mobility Limitations Standardized Measure [facility] AM-PAC 6 clicks Basic Mobility Inpatient Short Form: Raw Score: 24 CMS Score: 0% deficit Informed Consent/Education: Patient was instructed in purpose of PT consult. Assessment: Patient at baseline mobility level not requirinf an assistive device for level surface ambulation. PT evalaution only. No assistive devices needed. Patient is assessed [place] a 25733 moderate complexity based on the following: History: 69-year-old male with past medical history as indicated above Examination: Demonstrable impairment in strength, balance, and mobility level with underlying impairments and functional limitations as exhibited above as well as deficit score of 0% utilizing the [facility] Mobility Inpatient Short Form Presentation: Stable Decision Makin moderate complexity Goals: PT evaluation and one treatment session only. Plan of Care/Treatment Plan: PT evaluation and one treatment session only. DISCHARGE RECOMMENDATIONS: [X] Home with no services . Home when medically cleared by MD. No services needed at this time. No ambulatory devices needed at this time. [] Home with services [specify] [] Home with outpatient PT [] [] SNF for continued rehabilitation [] [] [facility] [address] [facility] [] [] SNF versus LTC based on ability to participate and progress [] TREATMENT CODE/TIME: 24748 x 20 minutes for 1 unit, 96057 x 14 minutes (9:21-9:55). Thank you for the opportunity to participate in the care of this patient. Yessica Fontaine PT, DPT, CLT [facility] [place], [place]
--- NOTE | 2024-07-26 09:33 | PDOC.CMPRO ---
Date of service: 07/26/24 Time of Service: 09:34 Care Management Progress Note Progress Note Text Progress Note Text: Roque is being closely monitored and treated for pneumonia and flu A. His O2 is being weaned as tolerated, still requiring 4L NC. PT evaluation was done today, no services are recommended. No changes to discharge plan. CM will continue to follow. Discharge Anticipated Barriers to Discharge: Medical Status Patient/Family Education Needs: Review discharge instructions, discuss Ask Me Three Transportation: Private vehicle Plan: Anticipate, Julio will be discharged home, once medically ready, with no new services. He will f/u with his pcp, continue per his plan of care, and transport home in a private vehicle with his . CM will continue to follow and update the plan as needed. Social Determinants of Health Screening Social Determinants of Health last assessed: 07/26/24 Will the Patient Participate in the Screening?: Yes Do you worry about having a steady place to live?: no Problems where you live: no known problems In the past 12 months, have you had to go without electric, gas, oil or water in your home?: no Have you or anyone in your house had to go without enough food to eat?: no Has lack of transportation kept you from medical appointments or from doing things needed for daily living?: no Has anyone in your life made you feel unsafe or unsupported?: no How hard is it for you to pay for the very basics like food, housing, medical care, and heating? Would you say it is:: Not hard at all Do you want help finding or keeping work or a job?: I do not need or want help If for any reason you need help with day-to-day activities such as bathing, preparing meals, shopping, managing finances, etc., do you get the help you need?: I don?t need any help How often do you feel lonely or isolated from those around you?: Never Do you speak a language other than [place]ian at home?: No Does the patient want assistance with any of the above?: No
--- NOTE | 2024-07-26 13:40 | W.PM.PROGNOT ---
Date of Service Date of service: 07/26/24 Time of Service: 13:40 Assessment and Plan Assessment and plan (1) Pneumonia: Status: Acute Assessment and plan: Will continue nebs as needed and scheduled Ongoing I-S, guaifenesin Legionella and strep pneumo negative Blood cultures are negative No fever since 07/23/2024 at 2330 Continue cefepime IV consider transitioning to cefpodoxime on d/c Continue doxycycline Wean O2 as tolerated, now on 3 l/nc -consider d/c home on O2 Ongoing RT consult Physical therapy consult for safe discharge (2) Influenza A: Status: Acute Assessment and plan: As above Ongoing Oseltamivir 75 mg BID Droplet precautions (3) Atrial fibrillation: Status: Chronic Assessment and plan: Stable - continue home meds regimen, including Eliquis Discussed with Dr. Monsivais Subjective Subjective Patient reports: no new complaints, tolerating liquids well, tolerating a regular diet, shortness of breath and afebrile Exam Const General: cooperative, comfortable and no acute distress Nutritional Appearance: obese Orientation: alert, awake and oriented x3 HENMT Head: normal to inspection Mouth: oral mucosae normal Neck Neck: normal visual inspection and full ROM Resp Effort & Inspection: normal respiratory effort Cardio Rate: regular rate Rhythm: regular rhythm GI Inspection: normal to inspection Palpation: soft Skin General skin exam: no rashes or lesions noted Neuro General: patient alert, patient awake, patient oriented x3 and no focal motor deficits Extrem General: normal to inspection and full ROM Psych Appearance: grossly normal Mental Status: mental status grossly normal Objective Last Vital Signs Temp 37.2 C 07/26/24 08:11 Pulse 75 07/26/24 08:11 Resp 24 07/26/24 08:11 BP 145/75 H 07/26/24 08:11 Pulse Ox 95 07/26/24 08:11 Laboratory Results - last 24 hr 07/26/24 06:55 WBC 4.46 RBC 4.46 Hgb 13.5 Hct 40.9 MCV 92 MCH 30.3 MCHC 33.0 RDW 13.9 Plt Count 148 MPV 10.3 Immature Gran % 0.4 Neutrophils % 64.4 Lymphocytes % 20.4 Monocytes % 13.7 Eosinophils % 0.7 Basophils % 0.4 Nucleated RBC % 0.0 Absolute Neutrophils 2.87 Absolute Lymphocytes 0.91 L Absolute Monocytes 0.61 Absolute Eosinophils 0.03 Absolute Basophils 0.02 Sodium 146 H Potassium 3.7 Chloride 107 Carbon Dioxide 30.3 Anion Gap 8.7 BUN 23 H Creatinine 1.4 H Est GFR (CKD-EPI 2020) 53.74 Glucose 112 H Calcium 9.0 Magnesium 1.9 Time Spent with Patient Time Spent with Patient: 35-49 minutes Time was spent: preparing to see the patient(eg.review tests), obtaining and/or reviewing separately otained hiistory, ordering medications,tests, procedures and indepentently interpreting results
--- NOTE | 2024-07-26 15:19 | PHA.REVIEW2 ---
Pharmacy Admission Review Admission Clinical Review Admission Pharmacy Review: Elevated serum creatinine (Acute) Pneumonia (Acute) Influenza A (Acute) adhesive Allergy (Severe, Unverified 07/22/24 12:21) I blow up just like a ballon Resuscitation Status Full Code Height 5 ft 11 in Weight 133.81 kg Comments Comments/Follow Ups: Working on weaning oxygen per provider Pharmacy Admission Review Renal Dosing Renal Dosing: BUN 23 mg/dL (7-18) H 07/26/24 06:55 Creatinine 1.4 mg/dL (0.70-1.30) H 07/26/24 06:55 Medications needing adjustments: Reviewed (CrCl 67.57, BUN increased from 20) List of meds needing interventions: Current medications are okay Anticoagulation Anticoagulation: Hgb 13.5 g/dL (13.5-17.5) 07/26/24 06:55 Hct 40.9 % (40.0-50.0) 07/26/24 06:55 Plt Count 148 10^3/uL (130-400) 07/26/24 06:55 INR 1.2 (0.9-1.1) H 07/22/24 12:30 Creatinine 1.4 mg/dL (0.70-1.30) H 07/26/24 06:55 DVT Prophylaxis: Reviewed Medications: Apixaban (5mg PO BID) Relevant Labs Relevant Labs: Sodium 146 mmol/L (136-145) H 07/26/24 06:55 Potassium 3.7 mmol/L (3.5-5.1) 07/26/24 06:55 Chloride 107 mmol/L (98-107) 07/26/24 06:55 Magnesium 1.9 mg/dL (1.8-2.4) 07/26/24 06:55 Electrolytes, C-Reactive P, ESR: Reviewed Cardiac Review Cardiac Review: Troponin I 15 ng/L (<or=76) 07/22/24 16:00 NT-Pro-B Natriuret Pep 593 pg/mL (<300) H 07/22/24 12:30 Blood Pressure 126/66 1359 Blood Pressure 145/75 0811 Blood Pressure 154/81 0431 BP, HR, EF%: Reviewed (HR WNL) List meds needing interventions: Has order for amlodipine 5mg daily, HCTZ 25mg daily, losartan 100mg daily and metoprolol XL 50mg BID QTc Review QTc: Reviewed (422 from 07/22/24) IV to PO Switch IV Medications: Intervened (cefepime and ondansetron - provider was okay with switching from IV to PO) Home Meds Home Med List reviewed: Reviewed Relevent Home Meds Not ordered & why?: pantoprazole (has order for omeprazole) Current Meds Current Medication Order Review: Reviewed Pharmacy Antibiotic Review Relevant Labs: WBC 4.46 10^3/uL (4.4-10.8) 07/26/24 06:55 Temperature 36.9 C Temperature 37.2 C Temperature 37.0 C Microbiology 07/23/24 10:05 Blood Culture - Preliminary Blood NO GROWTH 72 HOURS 07/23/24 09:50 Blood Culture - Preliminary Blood NO GROWTH 72 HOURS Pharmacy Antibiotic Activity: C/S review and Reviewed, no change Comments: Patient is on cefepime (day 2) and PO doxycycline ( day 4) for pneumonia. Patient is also on Tamiflu, day 4, for influenza. Blood cultures showing no growth, patient currently requiring 1 L of oxygen. Comments Comments/Follow Ups: Working on weaning oxygen per provider
[2024-07-26] MEDS: Melatonin 3 MG TAB PO (21:08)
[2024-07-27] VITALS (8 sets, daily range): BP systolic 137–140; BP diastolic 75–80; PULSE 60–98; RESP 3–22; TEMP 36.6–36.9; O2SAT 91–95
[2024-07-27] MEDS: CEFEPIME 2 GM in Normal Saline 100 ML IVPB ×3 (00:14→16:54)
[2024-07-27] MEDS: Normal Saline Flush 10 ML SYR IVP ×6 (00:15→20:17)
[2024-07-27] MEDS: Albuterol/Ipratropium 3 ML UPD VIAL UPD ×2 (06:06→17:56)
[2024-07-27] MEDS: Tamsulosin 0.4 MG CAPCR PO (08:13)
[2024-07-27] MEDS: Potassium Citrate 1080 MG TABCR 2160 MG PO ×2 (08:13→20:17)
[2024-07-27] MEDS: Atorvastatin 20 MG TAB PO (08:13)
[2024-07-27] MEDS: Oseltamivir 75 MG CAP PO ×2 (08:13→20:17)
[2024-07-27] MEDS: Metoprolol CR 50 MG TABCR PO ×2 (08:13→20:17)
[2024-07-27] MEDS: Omeprazole 20 MG CAPCR 40 MG PO (08:13)
[2024-07-27] MEDS: Doxycycline Hyclate 100 MG CAP PO ×2 (08:13→20:17)
[2024-07-27] MEDS: guaiFENesin 600 MG TABCR PO ×2 (08:13→20:17)
[2024-07-27] MEDS: Apixaban 5 MG TAB PO ×2 (08:13→20:17)
[2024-07-27] MEDS: hydroCHLOROthiazide 25 MG TAB PO (08:13)
[2024-07-27] MEDS: Losartan 50 MG TAB 100 MG PO (08:14)
[2024-07-27] MEDS: Allopurinol 300 MG TAB PO (08:14)
[2024-07-27] MEDS: amLODIPine 10 MG TAB 5 MG PO (08:14)
--- NOTE | 2024-07-27 13:15 | W.PM.DS.N ---
Date of service: 07/27/24 Time of Service: 13:16 DS: Diagnosis Discharge Diagnosis (1) Pneumonia: Status: Acute (2) Influenza A: Status: Acute (3) Atrial fibrillation: Status: Chronic Discharge Plan Disposition Patient Disposition: Home Condition: Improving Discharge Details Reason For Visit: Flu, left lobe pneumonia, acute hypoxic respirator Admit Date/Time: 07/22/24 15:29 Admit Provider: Magdaleno Monsivais Attending Provider: Magdaleno Monsivais Primary Care Provider: Brent Major Hospital Course Hospital Course: This is a 69-year-old male patient past medical history significant for atrial fibrillation fully anticoagulated with apixaban status post 3 ablations hypertension who presented to the emergency department with cough fever shortness of breath. His workup in the emergency department was positive for influenza A as well as a community-acquired pneumonia. He was placed on doxycycline and cefepime in addition to Tamiflu. He was admitted to hospitalist services with significant oxygen requirement. This was slowly weaned over a week. He has completed 1 week of treatment for pneumonia with doxycycline and cefepime in addition to 7 days of Tamiflu. He has been weaned off oxygen and stable for over 24 hours. Vital signs also have remained stable. He is eating and drinking and has been safely really ambulated. He is safe for discharge to home no new prescriptions no services needed at discharge. He should follow-up with his primary care provider outpatient or return sooner for new or worsening symptoms Discharge discussed with Dr. Monsivais Home Meds and New Rx's Prescriptions: New guaifenesin [Mucus Relief ER] 600 mg Tablet Extended Release 12hr 600 mg PO BID Qty: 0 0RF Continued Eliquis 5 mg tablet 5 mg PO BID metoprolol succinate 50 mg tablet extended release 24 hr 50 mg PO BID tamsulosin 0.4 mg capsule 0.4 mg PO DAILY doxycycline hyclate 100 mg tablet 100 mg PO BID Qty: 14 0RF atorvastatin 20 MG tablet 20 mg PO DAILY amlodipine 10 MG tablet 5 mg PO DAILY potassium citrate 10 mEq (1,080 mg) tablet extended release 20 meq PO BID allopurinol 300 mg tablet 300 mg PO DAILY Patient Comments: TAKE 1 TABLET DAILY FOR URIC ACID hydrochlorothiazide 25 mg tablet 25 mg PO DAILY Patient Comments: TAKE 1 TABLET DAILY losartan 100 mg tablet 100 mg PO DAILY Patient Comments: TAKE 1 TABLET DAILY pantoprazole 40 mg tablet,delayed release (DR/EC) 40 mg PO DAILY Patient Comments: TAKE 1 TABLET DAILY Discharge Instructions Instructions: Pneumonia in adults, Flu in adults - Discharge instructions Additional Instructions: You have completed a 7-day course of antibiotics and antivirals to treat influenza with community-acquired pneumonia. There are no further antibiotics or antivirals needed at time of discharge Usual medications as previously directed You can take [id number] Mucinex or other medications for symptom management as needed as directed Push fluids to stay well-hydrated drinking at least 6 to 8 glasses or more of water daily Continue your breathing exercises to help with your recovery Viral and bacterial illnesses, respiratory, can take 7 to 14 days to recover from so please space your activities accordingly. Call your primary care provider tomorrow morning to schedule follow-up appointment or return sooner for new or worsening symptoms Referrals: Brent Major [Primary Care Provider] - Activity:: Activity as Tolerated Equipment/Supplies:: No Equipment Needed Diet:: As Tolerated Discharge Orders Discharge Orders: Discharge Order (Routine); Ordered 07/28/24 Ordered By: Heike Olmos DS: Summary Time Spent with Patient providing and/or coordinating discharge services: Greater than 30 minutes Status at Discharge Functional status at discharge: independent ambulation Overall status at discharge: patient is back to baseline Mental Status: mental status grossly normal Speech and Movement: speech and movement normal Mood: congruent mood Affect: normal affect Quality:SDOH Health Related Social Needs: No Data to Display Exam Const General: cooperative, comfortable and no acute distress Nutritional Appearance: obese Orientation: alert, awake and oriented x3 HENMT Head: normal to inspection Mouth: oral mucosae normal Neck Neck: normal visual inspection and full ROM Resp Effort & Inspection: normal respiratory effort Cardio Rate: regular rate Rhythm: regular rhythm GI Inspection: normal to inspection Palpation: soft Skin General skin exam: no rashes or lesions noted Neuro General: patient alert, patient awake, patient oriented x3 and no focal motor deficits Extrem General: normal to inspection and full ROM Psych Appearance: grossly normal Mental Status: mental status grossly normal Speech and Movement: speech and movement normal Mood: congruent mood Affect: normal affect DS: Data Vitals/I&O Vitals and I&O: Vital Signs Temperature 36.7 C 07/27/24 11:05 Temperature Source Tympanic 07/27/24 11:05 Pulse 69 07/27/24 11:05 Pulse Rhythm Regular 07/22/24 17:45 Pulse 81 07/22/24 16:59 Respiratory Rate 18 07/27/24 11:05 Respiratory Effort Normal, Non-Labored 07/22/24 17:45 Respiratory Depth Normal 07/22/24 17:45 Respiratory Pattern Normal 07/22/24 17:45 Blood Pressure 140/80 07/27/24 11:05 Blood Pressure Mean 93 07/22/24 17:11 Pulse Oximetry 93 07/27/24 11:05 Oxygen Delivery Method Nasal Cannula 07/27/24 11:05 Oxygen Flow Rate 0 07/27/24 11:05 Pain Level 0 07/26/24 22:20 Comment pt requested to continue sleeping, will take vitals when pt wakes up 07/27/24 03:16 Intake & Output 07/26/24 07/27/24 07/27/24 23:59 11:59 23:59 Intake Total 110 / 320 210 / 210 Balance 110 / 320 210 / 210 Intake: IV 110 / 320 210 / 210 Other: Urine Color Yellow Urine Appearance Clear Urine Odor Normal Data Completed and Pending Labs on day of discharge: Preliminary micro results at discharge 07/23/24 10:05 Blood Culture - Preliminary Blood NO GROWTH 96 HOURS 07/23/24 09:50 Blood Culture - Preliminary Blood NO GROWTH 96 HOURS PFSH All Active Problems (Updated 07/22/24 @ 17:29 by MAGGIE PELAEZ) Elevated serum creatinine (Acute) Atrial fibrillation (Chronic) Pneumonia (Acute) Influenza A (Acute) Infected sebaceous cyst of skin (Acute) Internal derangement of left knee (Acute) Injected: 06/05/2019 Social History Smoking/Tobacco Use Status: Never Tobacco: How many years used: 0 Smoking risk assessment performed?: Yes Alcohol Intake: current Drug use: Never Substance use type: does not use Housing: house Current gender identity: male Do you feel safe at home: Yes Do you feel safe in your relationship?: Yes Time Spent with Patient Time Spent with Patient: 45-69 minutes Time was spent: preparing to see the patient(eg.review tests), obtaining and/or reviewing separately otained hiistory, ordering medications,tests, procedures, indepentently interpreting results and counseling the patient
--- NOTE | 2024-07-27 14:03 | W.PM.PROGNOT ---
Date of Service Date of service: 07/27/24 Time of Service: 14:03 Assessment and Plan Assessment and plan (1) Pneumonia: Status: Acute Assessment and plan: Will continue nebs as needed and scheduled Ongoing I-S, guaifenesin Legionella and strep pneumo negative Blood cultures are negative No fever since 07/23/2024 at 2330 Continue cefepime IV day 09/30 consider transitioning to cefpodoxime on d/c Continue doxycycline day Wean O2 as tolerated, now on 3 l/nc -consider d/c home on O2 Ongoing RT consult Physical therapy consult for safe discharge (2) Influenza A: Status: Acute Assessment and plan: As above Ongoing Oseltamivir 75 mg BID Droplet precautions (3) Atrial fibrillation: Status: Chronic Assessment and plan: Stable - continue home meds regimen, including Eliquis Discussed with Dr. Monsivais Subjective Subjective Patient reports: no new complaints, tolerating liquids well, tolerating a regular diet, shortness of breath (continues to have hacky cough) and afebrile Interval history since last seen: was weaned off oxygen but became hypoxic again today, now back on oxygen Exam Const General: cooperative, comfortable and no acute distress Nutritional Appearance: obese Orientation: alert, awake and oriented x3 HENMT Head: normal to inspection Mouth: oral mucosae normal Neck Neck: normal visual inspection and full ROM Resp Effort & Inspection: normal respiratory effort Cardio Rate: regular rate Rhythm: regular rhythm GI Inspection: normal to inspection Palpation: soft Skin General skin exam: no rashes or lesions noted Neuro General: patient alert, patient awake, patient oriented x3 and no focal motor deficits Extrem General: normal to inspection and full ROM Psych Appearance: grossly normal Mental Status: mental status grossly normal Objective Last Vital Signs Temp 36.7 C 07/27/24 11:05 Pulse 69 07/27/24 11:05 Resp 18 07/27/24 11:05 BP 140/80 07/27/24 11:05 Pulse Ox 93 07/27/24 11:05 Time Spent with Patient Time Spent with Patient: 35-49 minutes Time was spent: preparing to see the patient(eg.review tests), obtaining and/or reviewing separately otained hiistory, ordering medications,tests, procedures, indepentently interpreting results and counseling the patient
[2024-07-27] MEDS: LORazepam 0.5 MG TAB PO (20:16)
[2024-07-27] MEDS: Melatonin 3 MG TAB PO (20:17)
[2024-07-27] MEDS: Benzonatate 100 MG CAP PO (20:17)
[2024-07-28] VITALS (12 sets, daily range): BP systolic 108–142; BP diastolic 54–80; PULSE 57–73; RESP 3–22; TEMP 36–36.8; O2SAT 92–97
[2024-07-28] MEDS: Normal Saline Flush 10 ML SYR IVP ×2 (00:15→09:31)
[2024-07-28] MEDS: Albuterol/Ipratropium 3 ML UPD VIAL UPD ×3 (00:15→11:02)
[2024-07-28] MEDS: CEFEPIME 2 GM in Normal Saline 100 ML IVPB ×2 (00:15→09:23)
[2024-07-28] MEDS: guaiFENesin 600 MG TABCR PO (08:30)
[2024-07-28] MEDS: Doxycycline Hyclate 100 MG CAP PO (08:50)
[2024-07-28] MEDS: hydroCHLOROthiazide 25 MG TAB PO (09:24)
[2024-07-28] MEDS: Potassium Citrate 1080 MG TABCR 2160 MG PO (09:24)
[2024-07-28] MEDS: Oseltamivir 75 MG CAP PO (09:24)
[2024-07-28] MEDS: Omeprazole 20 MG CAPCR 40 MG PO (09:24)
[2024-07-28] MEDS: Losartan 50 MG TAB 100 MG PO (09:24)
[2024-07-28] MEDS: Allopurinol 300 MG TAB PO (09:25)
[2024-07-28] MEDS: amLODIPine 10 MG TAB 5 MG PO (09:25)
[2024-07-28] MEDS: Metoprolol CR 50 MG TABCR PO (09:25)
[2024-07-28] MEDS: Atorvastatin 20 MG TAB PO (09:26)
[2024-07-28] MEDS: Tamsulosin 0.4 MG CAPCR PO (09:26)
[2024-07-28] MEDS: Apixaban 5 MG TAB PO (10:10)
--- NOTE | 2024-07-28 15:28 | PDOC.CMDIS ---
Date of service: 07/28/24 Time of Service: 15:28 LACE Index Scoring Tool Questions: Length of Stay (in days): 4 - 6 Was the patient admitted via the E.D.?: Yes E.D. Visits: 2 Answers: Total Score: 9 Risk of Readmission: Low Risk Care Management Discharge Plan Reason for Hospitalization: Flu, pneumonia, hypoxia Discharge Plan: Roque returned home today with no new services. His drove him home via private vehicle. He will follow up with his PCP and discharge plan of care. Patient/Family Education Needs: Review discharge instructions and limitations, discussion of self care needs including ask me three. SDDC Health Related Social Needs: No Data to Display
== END 2024-07-28 14:46 | disposition home or self-care (01) | DRG 195 ==
LOC: ER 15:58 → MS 17:29
PROVIDERS: Nurse Practitioner Acute Care; Nurse Practitioner Family; Admitting Provider Hospitalist; Emergency Provider Physician Assistant; PCP Family Medicine; Visit Provider Hospitalist
DX: J10.1 Influenza due to other identified influenza virus with other respiratory manifestations (principal); J15.9 Unspecified bacterial pneumonia; I48.91 Unspecified atrial fibrillation; R09.02 Hypoxemia; Z79.01 Long term (current) use of anticoagulants
CPT/HCPCS: 00123; 36410; 36415; 71275; 80048; 80053; 82805; 87040; 87449; 87637; 93005; 94640; 94761; 96365; 96367; 96375; 97162; 97530; 99285; 71045; 83605; 83735; 83880; 84484; 85025; 85610; 85730; 87899; 93010; 94667; 94668; 94760; 99223; 99232; 99233; 99238; J0131; J0692; J2405; J3475; J3490; J7620

== ENCOUNTER 2024-08-15 01:18 | Outpatient (CLI) | payer MEDICARE, BC, SELFPAY ==
[2024-08-15 15:55] LABS: COMMENT (LAB VIEW ONLY) 124.34 mg/dL; Microalb ug/mg Crea 3.6 ug/mg Cr
[2024-08-15 15:59] LABS: Calculated LDL 82 mg/dL (<100); Cholesterol 185 mg/dL (<200); HDL Cholesterol 49 mg/dL (40-60); Triglyceride 274 mg/dL (<150)
[2024-08-15 16:38] LABS: Hemoglobin A1C 5.8 % (<5.7)
[2024-08-15 22:46] LABS: PSA, Diagnostic 1.7 ng/mL (<=6.5)
== END 2024-08-15 01:19 | disposition home or self-care (01) ==
PROVIDERS: Nurse Practitioner Family; PCP Family Medicine; Visit Provider Family Medicine
DX: E78.5 Hyperlipidemia, unspecified (principal); R73.01 Impaired fasting glucose; R97.20 Elevated prostate specific antigen [PSA]
CPT/HCPCS: 36415; 80061; 82043; 82570; 83036; 84153

== ENCOUNTER 2024-09-24 00:46 | Outpatient (CLI) | payer MEDICARE, BC, SELFPAY ==
--- NOTE | 2024-09-24 | DI.RAD_ITS ---
Exam(s) XR CHEST 2V PA LATERAL EXAM: XR CHEST 2V PA LATERAL CLINICAL HISTORY: PNEUMONIA, J18.9 TECHNIQUE: 2D digital imaging was performed of the chest. Two images were obtained. PA and lateral views were obtained. COMPARISON: CR XR PORTABLE CHEST AP from 07/24/2024 FINDINGS: MEDIASTINUM: Normal. HEART: Normal. There is a cardiac monitoring device seen in the soft tissues of the left chest wall a nteriorly. PULMONARY VASCULATURE: Normal. LUNGS: The infiltrates on the prior examination have resolved. No focal consolidating infiltrates ar e seen. PLEURAL SPACE: No pleural effusion or pneumothorax. BONE:Within normal limits for the patient's age. OTHER FINDINGS:Normal. IMPRESSION: No acute pulmonary findings. If symptoms persist, a repeat chest x-ray should be obtained. DATA REPOSITORY: RADIATION DOSE DELIVERED:
== END 2024-09-24 01:06 ==
PROVIDERS: PCP Family Medicine; Visit Provider Family Medicine
DX: J18.9 Pneumonia, unspecified organism (principal)
CPT/HCPCS: 71046

== ENCOUNTER 2024-11-28 09:55 | Emergency (ER) | payer MEDICARE, BC, SELFPAY ==
[2024-11-28] VITALS (51 sets, daily range): BP systolic 161–203; BP diastolic 62–98; PULSE 48–91; RESP 17–20; TEMP 36.6; O2SAT 93–99
--- NOTE | 2024-11-28 10:00 | RT.EKG_ITS ---
APPROVED REPORT Exam: Resting ECG Reason for Exam: Vertigo Patient Location: E HR:53 bpm ECG Measurements Heart Rate 53 AXIS WA 240 P 16 QRSd 106 QRS 27 QT 462 T 13 QTc 437 Conclusion Sinus bradycardia...rate< 60 Prolonged WA interval...WA >220, V-rate 50- 90
[2024-11-28 10:42] LABS: Abs Immature Grans 0.01 10^3/uL (0.0-0.06); Absolute Basophil Count 0.03 10^3/uL (0.0-0.2); Absolute Lymphocyte Count 1.28 10^3/uL (1.2-3.4); Absolute Monocyte Count 0.41 10^3/uL (0.1-0.8); Absolute Neutrophil Count 3.71 10^3/uL (1.2-6.7); Basophils % 0.5 %; Eosinophils % 1.8 %; HCT 46.1 % (40.0-50.0); HGB 15.9 g/dL (13.5-17.5); Immature Grans % 0.2 %; Lymphocytes % 23.1 %; MCH 29.8 pg (27.0-33.0); MCHC 34.5 % (32.0-36.0); MCV 87 fL (80-95); MPV 10.1 fL (8.0-11.0); Monocytes % 7.4 %; Platelet Count 194 10^3/uL (130-400); RBC 5.33 10^6/uL (4.36-5.78); RDW 13.3 % (11.8-14.1); RDW-SD 41.5 fL; WBC 5.54 10^3/uL (4.4-10.8)
--- NOTE | 2024-11-28 10:45 | DI.MRI_ITS ---
Exam(s) MR BRAIN WO EXAM: MR BRAIN WO CLINICAL HISTORY: vertigo, general weakness TECHNIQUE: Multiplanar multisequence MRI of the brain was performed. COMPARISON: CT CT BRAIN NECK CTA from 11/28/2024 FINDINGS: CEREBRAL PARENCHYMA: There is no evidence of intracranial hemorrhage, mass effect, or shift of midline structures. There are no extra-axial fluid collections. Ventricles are not enlarged or shifted. There is no significant focal signal abnormality in the cerebellar hemispheres nor within the antonio, m idbrain, and thalami. There few small tiny nonspecific foci of white matter signal abnormality in the [place] in supra ventric ular white matter. There is no significant focal signal abnormality evident on diffusion imaging to suggest acute ischem ic event. PITUITARY GLAND: No mass nor parasellar abnormality. No obvious abnormality in the cavernous sinuses. FLOW VOIDS: The expected flow void are noted. No evidence of obvious aneurysm nor obvious vascular ma lformation. PARANASAL SINUSES: The visualized paranasal sinuses appear unremarkable. No obvious finding ORBITS: No obvious findings. IMPRESSION: No significant specific intracranial findings on this noninfused MRI scan of the brain. Findings called by myself to ER physician 11/28/2024 at 5:05 p.m. DATA REPOSITORY:
--- NOTE | 2024-11-28 10:49 | DI.CT_ITS ---
Exam(s) CT BRAIN NECK CTA EXAM: CT BRAIN NECK CTA CLINICAL HISTORY: vertigo. TECHNIQUE: Imaging Protocol: Axial CT angiography was performed with multi-slice acquisition and mu lti-planar and/or 3D reconstructions. CONTRAST MATERIAL: Intravenous: Omnipaque 350 contrast volume:70 mL COMPARISON: CT CT NECK CHEST W from 11/22/2019 FINDINGS: CT Head W/O and W: Ventricles and Extra axial spaces: Normal in size and morphology for the patient's age. Hemorrhage: None. Cerebral parenchyma: There are areas of decreased attenuation in the white matter most consistent wit h chronic microvascular ischemic disease. No mass effect. No acute territorial infarct is seen at thi s time. Midline shift: None. Brainstem/Cerebellum: Normal. Calvarium: Normal. Visualized Paranasal sinuses/Mastoids: Clear. Soft Tissues: There is soft tissue swelling over the left frontal bone. Enhancement: Unremarkable. CTA Neck W: Common Carotid: Right: No dissection, occlusion or significant stenosis. Left: No dissection, occlusion or significant stenosis. External Carotid: Right: No occlusion or significant stenosis. Left: No occlusion or significant stenosis. Internal Carotid: Right: No dissection, occlusion or significant stenosis. Left: No dissection, occlusion or significant stenosis. Vertebral Artery: Right: No dissection, occlusion or significant stenosis. Left: No dissection, occlusion or significant stenosis. Lung Apices: Normal. Bones: Within normal limits for the patient's age. Soft Tissues: Normal. Thyroid gland: Unremarkable. CTA Brain W: Internal Carotid Arteries: Atherosclerotic calcification is present bilaterally. No aneurysm, occlusi on or significant stenosis is seen. Anterior Cerebral Arteries: Right: No aneurysm, occlusion or significant stenosis. Left: No aneurysm, occlusion or significant stenosis. Middle Cerebral Arteries: Right: No aneurysm, occlusion or significant stenosis. Left: No aneurysm, occlusion or significant stenosis. Posterior Cerebral Arteries: Right: No aneurysm, occlusion or significant stenosis. Left: No aneurysm, occlusion or significant stenosis. Vertebral Arteries: Right: No aneurysm, occlusion or significant stenosis. Left: No aneurysm, occlusion or significant stenosis. Basilar Artery: No aneurysm, occlusion or significant stenosis. IMPRESSION: 1. No large vessel occlusion or significant stenosis on the CT angiography of the head. 2. No acute intracranial process. 3. No occlusion or significant stenosis on the CT angiography of the neck. RADIATION DOSE DELIVERED: 2,440.85mGy.cm Total DLP DATA REPOSITORY: All CT scans at this facility are submitted to the National Radiology Data Registry (NRDR) Dose Index Registry (DIR) with the [employer] (A[employer]). RADIATION OPTIMIZATION: All CT scans at this facility use at least one of these dose optimization te chniques: automated exposure control; mA and/or kV adjustment per patient size (includes targeted exa ms where dose is matched to clinical indication); or iterative reconstruction.
[2024-11-28 11:08] LABS: ALT 30 U/L (16-63); AST 17 U/L (15-37); Albumin 3.9 g/dL (3.4-5.0); Alkaline Phosphatase 97 U/L (46-116); Anion Gap 11.4 mmol/L (3-11); BUN 24 mg/dL (7-18); Bilirubin, Total 0.8 mg/dL (0.2-1.0); CO2 28.6 mmol/L (21.0-32.0); CREATININE 1.1 mg/dL (0.70-1.30); Calcium 9.2 mg/dL (8.5-10.1); Chloride 106 mmol/L (98-107); Estimated GFR 71.77 (mL/min/1.73m2); Glucose 125 mg/dL (74-106); Magnesium 1.9 mg/dL (1.8-2.4); Potassium 3.3 mmol/L (3.5-5.1); Sodium 146 mmol/L (136-145); Total Protein 7.7 g/dL (6.4-8.2); Troponin I 10 ng/L (<or=76)
[2024-11-28] MEDS: Normal Saline - Diluent 50 ML VIAL IJ (11:36)
[2024-11-28] MEDS: Omnipaque 350 MG/ML 100 ML BTL IJ (11:37)
[2024-11-28 11:39] LABS: Troponin I 9 ng/L (<or=76)
--- NOTE | 2024-11-28 11:41 | W.ED.GENAD ---
Discharge Plan Disposition Patient Disposition: Home Condition: Stable Discharge Details Clinical Impression: Vertigo, Hypertension, Bradycardia, Hypokalemia Primary Care Provider: Brent Major ED Provider: Daquan Kinney Home Meds and New Rx's Prescriptions: New meclizine 25 mg tablet 25 mg PO BID PRNQty: 30 0RF Continued Eliquis 5 mg tablet 5 mg PO BID tamsulosin 0.4 mg capsule 0.4 mg PO DAILY atorvastatin 20 MG tablet 20 mg PO DAILY amlodipine 10 MG tablet 5 mg PO DAILY potassium citrate 10 mEq (1,080 mg) tablet extended release 20 meq PO BID allopurinol 300 mg tablet 300 mg PO DAILY Patient Comments: TAKE 1 TABLET DAILY FOR URIC ACID hydrochlorothiazide 25 mg tablet 25 mg PO DAILY Patient Comments: TAKE 1 TABLET DAILY losartan 100 mg tablet 100 mg PO DAILY Patient Comments: TAKE 1 TABLET DAILY pantoprazole 40 mg tablet,delayed release (DR/EC) 40 mg PO DAILY Patient Comments: TAKE 1 TABLET DAILY guaifenesin [Mucus Relief ER] 600 mg Tablet Extended Release 12hr 600 mg PO BID Qty: 0 0RF No Action metoprolol succinate 50 mg tablet extended release 24 hr 50 mg PO BID Discharge Instructions Instructions: High Potassium Diet, High Blood Pressure ED, Vertigo ED Additional Instructions: Your blood pressure was elevated today. Your heart rate was low in the 50s. 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 Call today to arrange timely follow-up for early next week. Return to the emergency department immediately for any worsening or new concerning symptoms. Stand Alone Forms: Physical Therapy Referral Referrals: Brent Major [Primary Care Provider, Medicine] Discharge Data Discharge Date/Time-TO BE ENTERED AT DEPARTURE: 11/28/24 17:34 HPI General Mode of arrival: ambulatory. Date/Time Provider Initiated Documentation: 11/28/24 10:31. Limitations to Documentation: no limitations. Information obtained by: patient. HPI Narrative: 69-year-old male presents with chief complaint of dizziness. Patient notes that 2 days ago he woke up in the morning and rolled over and felt severe dizziness with room spinning. Symptoms did improve and eventually resolved. He did not have any symptoms yesterday. Today he again woke up with recurrent vertigo, less severe than initial episode but more persistent today with associated generalized fatigue. No focal weakness. No visual changes. No headache. Related Data Home Medications ?Medication ?Instructions ?Recorded ?Confirmed amlodipine 10 mg tablet 5 mg PO DAILY 06/19/16 11/28/24 atorvastatin 20 mg tablet 20 mg PO DAILY 06/19/16 11/28/24 apixaban 5 mg tablet (Eliquis) 5 mg PO BID 06/05/19 11/28/24 metoprolol succinate 50 mg 50 mg PO BID 06/05/19 11/28/24 tablet,extended release 24 hr potassium citrate 10 mEq (1,080 20 meq PO BID 11/26/19 11/28/24 mg) tablet,extended release tamsulosin 0.4 mg capsule 0.4 mg PO DAILY 03/25/24 11/28/24 allopurinol 300 mg tablet 300 mg PO DAILY 07/22/24 11/28/24 hydrochlorothiazide 25 mg tablet 25 mg PO DAILY 07/22/24 11/28/24 losartan 100 mg tablet 100 mg PO DAILY 07/22/24 11/28/24 pantoprazole 40 mg tablet,delayed 40 mg PO DAILY 07/22/24 11/28/24 release guaifenesin 600 mg tablet, 600 mg PO BID #0 tabs 07/28/24 11/28/24 extended release 12 hr (Mucus Relief ER) meclizine 25 mg tablet 25 mg PO BID PRN #30 tabs 11/28/24 Previous Rx's ?Medication ?Instructions ?Recorded guaifenesin 600 mg tablet, 600 mg PO BID #0 tabs 07/28/24 extended release 12 hr (Mucus Relief ER) meclizine 25 mg tablet 25 mg PO BID PRN #30 tabs 11/28/24 Allergies Allergy/AdvReac Type Severity Reaction Status Date / Time adhesive Allergy Severe I blow up Verified 11/28/24 10:09 just like a ballon General Stated Complaint: GenMedical TILA: 3 Review of Systems All systems reviewed & are unremarkable except as noted in HPI and below Exam Const General: cooperative and no acute distress HENMT Mouth: moist mucous membranes Eyes Conjunctivae: normal conjunctivae Sclera: normal sclerae Neck Neck: trachea midline and supple Resp Auscultation: clear to auscultation bilaterally, no rales, no rhonchi and no wheezes Cardio Jugular venous pressure: no JVD Rate: regular rate and not tachycardic Rhythm: regular rhythm GI Palpation: soft, not firm, no guarding, no masses, not rigid and nontender Skin General skin exam: no rashes or lesions noted Neuro General: patient alert, patient awake, patient oriented x3 and tone normal Cranial Nerves: CN's II-XI intact bilaterally Cognition: normal cognition Speech: speech normal Gait: normal gait Motor: strength 5/5 throughout Sensory Exam: no sensory deficits noted Coordination: [id number] test normal and other (Rapid alternating movements normal) Other: No nystagmus Extrem General: no edema Psych Appearance: grossly normal Mental Status: mental status grossly normal Course Vital Signs Vital signs: Vital Signs Temperature 36.6 C 11/28/24 10:07 Pulse 55 L 11/28/24 10:07 Respiratory Rate 20 11/28/24 10:07 Blood Pressure 168/91 H 11/28/24 10:07 Pulse Oximetry 98 11/28/24 10:07 Temperature 36.6 C 11/28/24 10:29 Temperature Source Oral 11/28/24 10:29 Pulse 52 L 11/28/24 10:31 Pulse 55 L 11/28/24 10:31 Respiratory Rate 20 11/28/24 10:29 Respiratory Effort Normal 11/28/24 10:29 Respiratory Depth Normal 11/28/24 10:29 Respiratory Pattern Normal 11/28/24 10:29 Blood Pressure 172/83 H 11/28/24 10:31 Blood Pressure Mean 114 11/28/24 10:31 Blood Pressure Position Sitting 11/28/24 10:07 Pulse Oximetry 98 11/28/24 10:31 Oxygen Delivery Method Room Air 11/28/24 10:29 Oxygen Flow Rate 0 11/28/24 10:29 Pain Level 0 11/28/24 10:07 Lab/Test Results Lab/Test Results: Laboratory Tests Range/Units 11/28/24 11/28/24 10:20 11:10 WBC (4.4-10.8) 10^3/uL 5.54 RBC (4.36-5.78) 10^6/uL 5.33 Hgb (13.5-17.5) g/dL 15.9 Hct (40.0-50.0) % 46.1 MCV (80-95) fL 87 MCH (27.0-33.0) pg 29.8 MCHC (32.0-36.0) % 34.5 RDW (11.8-14.1) % 13.3 Plt Count (130-400) 10^3/uL 194 MPV (8.0-11.0) fL 10.1 Immature Gran % % 0.2 Neutrophils % % 67.0 Lymphocytes % % 23.1 Monocytes % % 7.4 Eosinophils % % 1.8 Basophils % % 0.5 Nucleated RBC % (0.0-0.3) % 0.0 Absolute Neutrophils (1.2-6.7) 10^3/uL 3.71 Absolute Lymphocytes (1.2-3.4) 10^3/uL 1.28 Absolute Monocytes (0.1-0.8) 10^3/uL 0.41 Absolute Eosinophils (0.0-0.7) 10^3/uL 0.10 Absolute Basophils (0.0-0.2) 10^3/uL 0.03 Sodium (136-145) mmol/L 146 H Potassium (3.5-5.1) mmol/L 3.3 L Chloride (98-107) mmol/L 106 Carbon Dioxide (21.0-32.0) mmol/L 28.6 Anion Gap (3-11) mmol/L 11.4 H BUN (7-18) mg/dL 24 H Creatinine (0.70-1.30) mg/dL 1.1 Est GFR (CKD-EPI 2020) (mL/min/1.73m2) 71.77 Glucose (74-106) mg/dL 125 H Calcium (8.5-10.1) mg/dL 9.2 Magnesium (1.8-2.4) mg/dL 1.9 Total Bilirubin (0.2-1.0) mg/dL 0.8 AST (15-37) U/L 17 ALT (16-63) U/L 30 Alkaline Phosphatase (46-116) U/L 97 Troponin I (<or=76) ng/L 10 9 Total Protein (6.4-8.2) g/dL 7.7 Albumin (3.4-5.0) g/dL 3.9 Medical Decision Making 1145??69-year-old male with multiple medical problems, here with new onset vertigo, initial episode 2 days ago, now recurring today and more persistent with associated generalized weakness. Patient has no focal neurologic deficits. He is hypertensive and bradycardic. He does note he has not taken his prescribed antihypertensive today. Screening EKG was reviewed and interpreted by me: Please report, sinus bradycardia 53 bpm, first-degree AV block VT interval 240. Concern for potential posterior circulation CVA versus vestibular neuritis versus hypertensive emergency. Hints exam is nondiagnostic. He has no nystagmus on exam which is concerning. I will administer his prescribed amlodipine and losartan. CTA brain interpreted by radiology: 1. No large vessel occlusion or significant stenosis on the CT angiography of the head. 2. No acute intracranial process. 3. No occlusion or significant stenosis on the CT angiography of the neck. MRI pending. 1613 --patient remains hypertensive. Heart rate improved. Blood pressure does decrease when standing but still elevated at 160. I have ordered his hydrochlorothiazide and metoprolol. 1706 --MRI interpreted by radiology as negative. No posterior lesion. Plan for discharge with close outpatient follow-up with PCP. Patient will need ongoing management of hypertension. Lab Data Lab results reviewed: Yes I reviewed the patient's lab results. Labs: Laboratory Tests Range/Units 11/28/24 11/28/24 10:20 11:10 WBC (4.4-10.8) 10^3/uL 5.54 RBC (4.36-5.78) 10^6/uL 5.33 Hgb (13.5-17.5) g/dL 15.9 Hct (40.0-50.0) % 46.1 MCV (80-95) fL 87 MCH (27.0-33.0) pg 29.8 MCHC (32.0-36.0) % 34.5 RDW (11.8-14.1) % 13.3 Plt Count (130-400) 10^3/uL 194 MPV (8.0-11.0) fL 10.1 Immature Gran % % 0.2 Neutrophils % % 67.0 Lymphocytes % % 23.1 Monocytes % % 7.4 Eosinophils % % 1.8 Basophils % % 0.5 Nucleated RBC % (0.0-0.3) % 0.0 Absolute Neutrophils (1.2-6.7) 10^3/uL 3.71 Absolute Lymphocytes (1.2-3.4) 10^3/uL 1.28 Absolute Monocytes (0.1-0.8) 10^3/uL 0.41 Absolute Eosinophils (0.0-0.7) 10^3/uL 0.10 Absolute Basophils (0.0-0.2) 10^3/uL 0.03 Sodium (136-145) mmol/L 146 H Potassium (3.5-5.1) mmol/L 3.3 L Chloride (98-107) mmol/L 106 Carbon Dioxide (21.0-32.0) mmol/L 28.6 Anion Gap (3-11) mmol/L 11.4 H BUN (7-18) mg/dL 24 H Creatinine (0.70-1.30) mg/dL 1.1 Est GFR (CKD-EPI 2020) (mL/min/1.73m2) 71.77 Glucose (74-106) mg/dL 125 H Calcium (8.5-10.1) mg/dL 9.2 Magnesium (1.8-2.4) mg/dL 1.9 Total Bilirubin (0.2-1.0) mg/dL 0.8 AST (15-37) U/L 17 ALT (16-63) U/L 30 Alkaline Phosphatase (46-116) U/L 97 Troponin I (<or=76) ng/L 10 9 Total Protein (6.4-8.2) g/dL 7.7 Albumin (3.4-5.0) g/dL 3.9 PFSH All Active Problems (Updated 11/28/24 @ 17:11 by Daquan Kinney MD) Hypokalemia (Acute) Bradycardia (Acute) Hypertension (Chronic) Vertigo (Acute) Elevated serum creatinine (Acute) Atrial fibrillation (Chronic) Influenza A (Acute) Infected sebaceous cyst of skin (Acute) Internal derangement of left knee (Acute) Injected: 06/05/2019 Medical History Pneumonia Social History Smoking/Tobacco Use Status: Never Tobacco: How many years used: 0 Smoking risk assessment performed?: Yes Alcohol Intake: current Drug use: Never Substance use type: does not use Housing: house Current gender identity: male Do you feel safe at home: Yes Do you feel safe in your relationship?: Yes
[2024-11-28] MEDS: amLODIPine 5 MG TAB PO (13:11)
[2024-11-28] MEDS: Losartan 50 MG TAB 100 MG PO (13:11)
[2024-11-28] MEDS: hydroCHLOROthiazide 25 MG TAB PO (15:34)
[2024-11-28] MEDS: Potassium Chloride 20 MEQ TABCR 40 MEQ PO (15:34)
[2024-11-28] MEDS: Meclizine 25 MG TAB PO (15:34)
--- NOTE | 2024-11-28 15:58 | NUR.NOTE ---
Nursing Note: pt heart race increased during othostatic vs, now at rest and HR in the 50's, holding metoprolol.
== END 2024-11-28 17:34 | disposition home or self-care (01) ==
PROVIDERS: Emergency Provider Student in an Organized Health Care Education/Training Program; PCP Family Medicine
DX: R00.1 Bradycardia, unspecified (principal); R42 Dizziness and giddiness; I10 Essential (primary) hypertension; E87.6 Hypokalemia
CPT/HCPCS: 99284; 99285; 36415; 70496; 70498; 80053; 93005; 70551; 83735; 84484; 85025; 93010; J3490

== ENCOUNTER 2024-12-06 01:43 | Outpatient (CLI) | payer MEDICARE, BC, SELFPAY ==
[2024-12-14 16:29] LABS: Testosterone, Total 378 ng/dL (240-950)
== END 2024-12-06 01:44 | disposition home or self-care (01) ==
PROVIDERS: PCP Family Medicine; Visit Provider Nurse Practitioner Family
DX: N52.9 Male erectile dysfunction, unspecified (principal)
CPT/HCPCS: 36415; 84403

== ENCOUNTER 2024-12-25 02:06 | Outpatient (CLI) | payer MEDICARE, BC, SELFPAY ==
--- NOTE | 2024-12-25 12:30 | DI.US_ITS ---
APPROVED REPORT EXAM: Comprehensive 2D, Doppler, and color-flow Echocardiogram Patient Location: Out-Patient Media Specialist: Allison Arias RDCS (AE) Indications: PAF Other Information Study Quality: Fair. Technically limited study due to body habitus. Conclusion Technically difficult study Normal left ventricular wall thickness chamber size and systolic function. No segmental wall motion abnormalities are identified Normal right ventricular size and function Both atria are normal in size There is no significant valvular disease Ascending aorta measures 3.69 cm Wall motion Left Ventricle The left ventricle is normal size. The left ventricular systolic function is normal. The left ventricular ejection fraction is within the normal range. There is normal left ventricular wall thickness. There is normal LV segmental wall motion. There is no ventricular septal defect visualized. LVEF is 58%. Right Ventricle The right ventricle is normal size. The right ventricular systolic function is normal. Atria The left atrium size is normal. The right atrium size is normal. The interatrial septum is intact with no evidence for an atrial septal defect. Aortic Valve The aortic valve is normal in structure. Aortic valve is trileaflet. There is no aortic valvular stenosis. No aortic regurgitation is present. Mitral Valve The mitral valve is normal in structure. No evidence of mitral valve stenosis. Trace mitral regurgitation. Tricuspid Valve The tricuspid valve is normal in structure. There is no tricuspid valve stenosis. Trace tricuspid regurgitation. The RVSP is 28.5_ mmHg. Pulmonic Valve The pulmonary valve is normal in structure. There is no pulmonic valvular stenosis. Trace pulmonic regurgitation. Great Vessels The aortic root is normal in size. The ascending aorta is mildly dilated. Aortic arch is normal in caliber. IVC is normal in size and collapses >50% with inspiration. Pericardium There is no pericardial effusion. 2D Dimensions IVSD d PLAX 1.13 cm M: 0.6-1.2 Ao Root d 3.54 cm M: 3.1 - 3.7 LVPW d PLAX 1.14 cm M: 0.6 - 1.2 Ao Asc Diam d 3.69 cm M: 2.6 - 3.4 LVID d PLAX 5.30 cm M: 4.2 - 5.8 LVDs 3.61 cm M: 2.5 - 4.0 LV EF Teichholz 59.1 % FS 31.59 % LV EDV (Teich) 133.8 mL LV ESV (Teich) 54.7 mL M-Mode TAPSE 2.37 cm (M/F) >1.7 Auto EF LV EDV A4C 167.6 mL LV EDV A2C 104.4 mL LV EDV BP 134.7 mL LV ESV A4C 72.0 mL LV ESV A2C 43.7 mL LV ESV BP 58.1 mL LVEF(%) A4C 57.0 % LVEF(%) A2C 58.1 % LVEF(%) BP 56.9 % LV SV A4C 95.5 ml LV SV A2C 60.7 ml LV SV BP 76.6 ml LV CO A4C 5.6 L/min LV CO A2C 3.5 L/min LV CO BP 4.5 L/min HR A4C 58.35 BPM HR A2C 57.76 BPM LV EDV Index (BP) LA Volume LA Length A4C 5.7 cm LA Length A2C 6.3 cm LA Area A4C s 21.71 cm2 LA Area A2C s 17.89 cm2 LA Vol A4C A-L 69.96 mL LA Vol A2C A-L 43.00 mL LA Vol Biplane A-L 57.6 mL LA Vol/BSA A4C A-L LA Vol/BSA A2C A-L LA Vol/BSA BP A-L 23.2 mL/m2 LA Vol A4C MOD 65.1 mL LA Vol A2C MOD 41.2 mL LA Vol BP MOD 54.3 mL LV Diastology MV E' medial 0.113 (>0.07 m/s) MV E Vmax 1.09 (0.4-1.3 m/s) MV E/E' MED 9.58 (<14) MV E' lateral 0.116 (>0.1 m/s) MV E/E' LAT 9.36 (<14) MV E' Average 0.115 m/s MV E/E'(average) 9.47 Aortic Valve AoV Vmax 1.65 m/s LVOT Vmax 1.17 m/s AoV Peak Grad 10.9 mmHg LVOT Peak Grad 5.5 mmHg AoV Area (Vmax) 2.49 cm2 LVOT VTI 0.285 m AoV VTI 0.361 m LVOT Mean Grad 3.1 mmHg AoV Mean Kenney. 1.06 m/s LVOT SV 99.80 mL AoV Mean Grad 5.3 mmHg LVOT Diam s 2.10 cm AoV Area (VTI) 2.77 cm2 AV Regurg Peak Gr. 10.89 mmHg Velocity Ratio 0.71 Mitral Valve MV DT 221 (160-240 msec) MV Vmax TIPS 0.87 m/s MV Mean Grad 1.1 (<2mmHg) MV VTI 0.256 m Pulmonary Valve PV Vmax 1.07 (0.5-1.5 m/s) RVOT Vmax 0.66 m/s PV Peak Grad 4.6 mmHg RVOT Peak Gr. 1.8 mmHg PV Mean Kenney 0.73 m/s RVOT VTI 0.159 m PV Mean Grad 2.5 mmHg RVOT Mean Gr. 1.0 mmHg Tricuspid Valve RA Pressure 3.00 mmHg TR Vmax 2.53 m/s TV S' 0.19 m/s TR Peak Grad 25.5 mmHg RVSP (TR) 28.5 mmHg
== END 2024-12-25 02:26 ==
PROVIDERS: PCP Family Medicine; Visit Provider Internal Medicine Cardiovascular Disease
DX: I48.0 Paroxysmal atrial fibrillation (principal)
CPT/HCPCS: 93306

== ENCOUNTER 2025-02-06 03:49 | Outpatient (CLI) | payer MEDICARE, BC, SELFPAY ==
[2025-02-06 10:30] LABS: Hemoglobin A1C 5.4 % (<5.7)
[2025-02-06 10:31] LABS: ALT 48 U/L (16-63); AST 18 U/L (15-37); Albumin 3.7 g/dL (3.4-5.0); Alkaline Phosphatase 94 U/L (46-116); Anion Gap 10.5 mmol/L (3-11); BUN 32 mg/dL (7-18); Bilirubin, Total 0.9 mg/dL (0.2-1.0); CO2 26.5 mmol/L (21.0-32.0); Calcium 9.1 mg/dL (8.5-10.1); Calculated LDL 94 mg/dL (<100); Chloride 108 mmol/L (98-107); Cholesterol 158 mg/dL (<200); Estimated GFR 64.65 (mL/min/1.73m2); Glucose 119 mg/dL (74-106); HDL Cholesterol 42 mg/dL (>or=40); Potassium 3.7 mmol/L (3.5-5.1); Sodium 145 mmol/L (136-145); Total Protein 7.4 g/dL (6.4-8.2); Triglyceride 110 mg/dL (<150)
[2025-02-06 17:07] LABS: COMMENT (LAB VIEW ONLY) 67.23 mg/dL; Microalb ug/mg Crea 8.5 ug/mg Cr
== END 2025-02-06 03:50 | disposition home or self-care (01) ==
PROVIDERS: PCP Family Medicine; Visit Provider Family Medicine
DX: R73.01 Impaired fasting glucose (principal); E78.5 Hyperlipidemia, unspecified; E78.2 Mixed hyperlipidemia
CPT/HCPCS: 36415; 80053; 80061; 82043; 82565; 82570; 83036; 84156

== ENCOUNTER 2025-06-01 09:22 | Emergency (ER) | payer MEDICARE, BC, SELFPAY ==
[2025-06-01 09:26] VITALS: BP 153/81; PULSE 87; RESP 20; TEMP 36.6; O2SAT 97
--- NOTE | 2025-06-01 10:32 | W.ED.GENAD ---
Discharge Plan Disposition Patient Disposition: Home Condition: Good Discharge Details Clinical Impression: Conjunctivitis Primary Care Provider: Brent Major ED Provider: Elisa Rice Home Meds and New Rx's Prescriptions: No Action Eliquis 5 mg tablet 5 mg PO BID metoprolol succinate 50 mg tablet extended release 24 hr 50 mg PO BID tamsulosin 0.4 mg capsule 0.4 mg PO DAILY meclizine 25 mg tablet 25 mg PO BID PRNQty: 30 0RF atorvastatin 20 MG tablet 20 mg PO DAILY amlodipine 10 MG tablet 5 mg PO DAILY potassium citrate 10 mEq (1,080 mg) tablet extended release 20 meq PO BID allopurinol 300 mg tablet 300 mg PO DAILY Patient Comments: TAKE 1 TABLET DAILY FOR URIC ACID hydrochlorothiazide 25 mg tablet 25 mg PO DAILY Patient Comments: TAKE 1 TABLET DAILY losartan 100 mg tablet 100 mg PO DAILY Patient Comments: TAKE 1 TABLET DAILY pantoprazole 40 mg tablet,delayed release (DR/EC) 40 mg PO DAILY Patient Comments: TAKE 1 TABLET DAILY guaifenesin [Mucus Relief ER] 600 mg Tablet Extended Release 12hr 600 mg PO BID Qty: 0 0RF potassium chloride [Klor-Con M20] 20 mEq tablet,ER particles/crystals 20 meq PO DAILY Patient Comments: TAKE 2 TABLETS DAILY Discharge Instructions Additional Instructions: Please use the Polytrim eyedrops 2 drops 4 times a day for 5 days in the affected eye(s)-you may use in the right eye if you think this is becoming infected as well. I encourage you to avoid rubbing your eyes. You may use cool compresses as needed for any discomfort/itching. Warm compresses are helpful for clearing crusting. Follow-up with your eye doctor in 2 to 3 days if you are not feeling significantly better. Return to emergency care if you develop new vision changes, eye pain, unusual headaches, changes to the appearance of your eye, or if you are very worried and need to be rechecked again immediately Stand Alone Forms: Portal Information HPI General Date/Time Provider Initiated Documentation: 06/01/25 10:00. HPI Narrative: Conner is a 70-year-old male who presents to the emergency department today for evaluation of redness and drainage to his left eye. He reports that he was visiting family in [place] last week. Developed viral URI symptoms earlier this week, including congestion and hoarse voice. Couple of days ago developed redness, crusting, and yellowish discharge to his right eye. Is starting to get tearing to his right eye as well. Denies fever/chills, headaches, vision changes, pain or discomfort to eye, recent trauma. Grandson was diagnosed with pinkeye while he was there. He does not wear contacts. No history of eye surgeries or significant diagnoses to his eye. He has an eye doctor in [place], wears glasses. Related Data Home Medications ?Medication ?Instructions ?Recorded ?Confirmed amlodipine 10 mg tablet 5 mg PO DAILY 06/19/16 06/01/25 atorvastatin 20 mg tablet 20 mg PO DAILY 06/19/16 06/01/25 apixaban 5 mg tablet (Eliquis) 5 mg PO BID 06/05/19 06/01/25 metoprolol succinate 50 mg 50 mg PO BID 06/05/19 06/01/25 tablet,extended release 24 hr potassium citrate 10 mEq (1,080 20 meq PO BID 11/26/19 06/01/25 mg) tablet,extended release tamsulosin 0.4 mg capsule 0.4 mg PO DAILY 03/25/24 06/01/25 allopurinol 300 mg tablet 300 mg PO DAILY 07/22/24 06/01/25 hydrochlorothiazide 25 mg tablet 25 mg PO DAILY 07/22/24 06/01/25 losartan 100 mg tablet 100 mg PO DAILY 07/22/24 06/01/25 pantoprazole 40 mg tablet,delayed 40 mg PO DAILY 07/22/24 06/01/25 release guaifenesin 600 mg tablet, 600 mg PO BID #0 tabs 07/28/24 06/01/25 extended release 12 hr (Mucus Relief ER) meclizine 25 mg tablet 25 mg PO BID PRN #30 tabs 11/28/24 06/01/25 potassium chloride 20 mEq 20 meq PO DAILY 06/01/25 06/01/25 tablet,extended release(part/cryst) (Klor-Con M) Previous Rx's ?Medication ?Instructions ?Recorded guaifenesin 600 mg tablet, 600 mg PO BID #0 tabs 07/28/24 extended release 12 hr (Mucus Relief ER) meclizine 25 mg tablet 25 mg PO BID PRN #30 tabs 11/28/24 Allergies Allergy/AdvReac Type Severity Reaction Status Date / Time adhesive Allergy Severe I blow up Verified 06/01/25 09:28 just like a ballon General Stated Complaint: EyeProblem TILA: 4 Exam Const General: cooperative, healthy appearing, comfortable, no acute distress and well developed Nutritional Appearance: average body habitus and well nourished Orientation: alert and oriented x3 HENMT Head: normal to inspection, normocephalic, atraumatic and no raccoon eyes Ears: hearing grossly normal bilaterally General nose exam: external nose normal Mouth: oral mucosae normal Eyes Eyelids: eyelids normal Conjunctivae: conjunctival abnormality left conjunctival injection Sclera: scleral abnormality left scleral injection; without foreign bodies and without hemorrhages Pupils: PERRL EOM: EOM intact bilaterally Resp Effort & Inspection: normal respiratory effort and able to speak in complete sentences Skin General skin exam: no rashes or lesions noted Course Vital Signs Vital signs: Vital Signs Temperature 36.6 C 06/01/25 09:26 Pulse 87 06/01/25 09:26 Respiratory Rate 20 06/01/25 09:26 Blood Pressure 153/81 H 06/01/25 09:26 Pulse Oximetry 97 06/01/25 09:26 Temperature 36.6 C 06/01/25 09:26 Pulse 87 06/01/25 09:26 Respiratory Rate 20 06/01/25 09:26 Blood Pressure 153/81 H 06/01/25 09:26 Pulse Oximetry 97 06/01/25 09:26 Medical Decision Making Conner is a 70-year-old male who presents to the emergency department today for evaluation of redness and drainage to his left eye. He reports that he was visiting family in [place] last week. Developed viral URI symptoms earlier this week, including congestion and hoarse voice. Couple of days ago developed redness, crusting, and yellowish discharge to his right eye. Is starting to get tearing to his right eye as well. Denies fever/chills, headaches, vision changes, pain or discomfort to eye, recent trauma. Grandson was diagnosed with pinkeye while he was there. He does not wear contacts. No history of eye surgeries or significant diagnoses to his eye. He has an eye doctor in [place], wears glasses. Physical exam remarkable for watery left eye with diffuse scleral and conjunctival injection. No ciliary flush. PERRL, EOMs intact. Cranial nerves II through XII intact as tested. No abnormalities noted to eyelid. Easy work of breathing, able to speak in full sentences. History and presentation consistent with bacterial conjunctivitis. No red flags concerning for eye trauma, foreign body, or other serious etiologies of right eye requiring emergent diagnostic imaging. Provided Polytrim eyedrops here in ED. Reviewed discharge instructions patient, including symptomatic management, use of eyedrops, and red flags indicating need for return to emergency care. PFSH All Active Problems (Updated 06/01/25 @ 10:37 by Elisa Levine) Conjunctivitis (Acute) Elevated serum creatinine (Acute) Atrial fibrillation (Chronic) Influenza A (Acute) Infected sebaceous cyst of skin (Acute) Internal derangement of left knee (Acute) Injected: 06/05/2019 Medical History Pneumonia Social History Smoking/Tobacco Use Status: Never Tobacco: How many years used: 0 Smoking risk assessment performed?: Yes Alcohol Intake: current Drug use: Never Substance use type: does not use Housing: house Current gender identity: male Do you feel safe at home: Yes Do you feel safe in your relationship?: Yes
[2025-06-01] MEDS: Polymyxin B/Trimethoprim Ophth Soln 10 ML BTL OU (10:45)
[2025-06-01 10:55] VITALS: BP 141/66; BP 153/81; PULSE 80; PULSE 87; RESP 16; RESP 20; TEMP 36.6; O2SAT 95; O2SAT 97
== END 2025-06-01 11:00 | disposition home or self-care (01) ==
PROVIDERS: Emergency Provider Nurse Practitioner Family; PCP Family Medicine
DX: H10.022 Other mucopurulent conjunctivitis, left eye (principal)
CPT/HCPCS: 99283 ×2

== ENCOUNTER 2025-06-18 00:33 | Outpatient (CLI) | payer MEDICARE, BC, SELFPAY ==
[2025-06-18 10:41] LABS: Anion Gap 10.9 mmol/L (3-11); BUN 26 mg/dL (9-23); CO2 26.1 mmol/L (20.0-31.0); Calcium 9.4 mg/dL (8.3-10.6); Chloride 107 mmol/L (98-107); Glucose 106 mg/dL (74-106); Potassium 3.4 mmol/L (3.5-5.1); Sodium 144 mmol/L (136-145)
== END 2025-06-18 00:34 | disposition home or self-care (01) ==
PROVIDERS: PCP Family Medicine; Visit Provider Nurse Practitioner Acute Care
DX: Z79.899 Other long term (current) drug therapy (principal)
CPT/HCPCS: 36415; 80048